=== PATIENT | female | born 1945 | race Caucasian/White ===

== ENCOUNTER → 2016-10-15 | Outpatient (CLI) | payer MEDICARE, OTHER ==
[2016-10-15 14:27] LABS: MEAN CORPUSCULAR HEMOGLOBIN 29.6 pg (27.0-33.0); MEAN CORPUSCULAR HGB CONC 32.2 g/dl (32.0-36.5); MEAN CORPUSCULAR VOLUME 91.9 fl (80.0-96.0); WHITE BLOOD COUNT 5.6 K/mm3 (4.0-10.0)
[2016-10-15 14:33] LABS: ALBUMIN 3.4 GM/DL (3.2-5.2); ALBUMIN/GLOBULIN RATIO 1.06 (1.00-1.93); ALKALINE PHOSPHATASE 77 U/L (45-117); ALT/SGPT 22 U/L (12-78); ANION GAP 9 MEQ/L (8-16); AST/SGOT 16 U/L (15-37); BILIRUBIN,TOTAL 0.4 MG/DL (0.2-1.0); BLOOD UREA NITROGEN 18 MG/DL (7-18); CALCIUM LEVEL 8.9 MG/DL (8.8-10.2); CARBON DIOXIDE LEVEL 27 MEQ/L (21-32); CHLORIDE LEVEL 108 MEQ/L (98-107); CREATININE FOR GFR 0.92 MG/DL (0.55-1.02); FREE T4 1.45 NG/DL (0.76-1.46); GLOMERULAR FILTRATION RATE > 60.0 (>39); GLUCOSE, FASTING 93 MG/DL (83-110); POTASSIUM SERUM 4.7 MEQ/L (3.5-5.1); SODIUM LEVEL 144 MEQ/L (136-145); TOTAL PROTEIN 6.6 GM/DL (6.4-8.2)
[2016-10-15 14:34] LABS: VITAMIN B12 LEVEL 244 PG/ML (247-911)
== END ==
LOC: M SMT 09:36
PROVIDERS: ATTEND Family Medicine
DX: E53.8 Deficiency of other specified B group vitamins (principal); E03.9 Hypothyroidism, unspecified; I25.9 Chronic ischemic heart disease, unspecified

== ENCOUNTER → 2017-09-10 | Outpatient (CLI) | payer MEDICARE, OTHER ==
[2017-09-10 12:12] LABS: HEMATOCRIT 38.7 % (36.0-47.0); HEMOGLOBIN 12.4 g/dl (12.0-16.0); IMMATURE GRANULOCYTE % 0.4 % (0-3.0); LYMPH # 1.8 10^3/uL (1.5-4.5); LYMPH % 36.7 % (24.0-44.0); MEAN CORPUSCULAR HEMOGLOBIN 29.3 pg (27.0-33.0); MEAN CORPUSCULAR VOLUME 91.5 fl (80.0-96.0); MONO # 0.2 10^3/uL (0.0-0.8); MONO % 4.8 % (0.0-5.0); NEUTROPHILS # 2.9 10^3/uL (1.8-7.7); NEUTROPHILS % 58.1 % (36.0-66.0); PLATELET COUNT, AUTOMATED 279 10^3/uL (150-450); RED BLOOD COUNT 4.23 10^6/uL (4.00-5.40); RED CELL DISTRIBUTION WIDTH 11.8 % (11.5-14.5)
[2017-09-10 12:34] LABS: VITAMIN B12 LEVEL 256 PG/ML (247-911)
[2017-09-10 12:57] LABS: ALBUMIN 3.5 GM/DL (3.2-5.2); ALBUMIN/GLOBULIN RATIO 1.06 (1.00-1.93); ALKALINE PHOSPHATASE 90 U/L (45-117); ALT/SGPT 15 U/L (12-78); ANION GAP 11 MEQ/L (8-16); AST/SGOT 13 U/L (7-37); BILIRUBIN,TOTAL 0.5 MG/DL (0.2-1.0); BLOOD UREA NITROGEN 15 MG/DL (7-18); CALCIUM LEVEL 8.9 MG/DL (8.8-10.2); CARBON DIOXIDE LEVEL 25 MEQ/L (21-32); CHLORIDE LEVEL 106 MEQ/L (98-107); CHOLESTEROL LEVEL 201 MG/DL (<200); CREATININE FOR GFR 0.96 MG/DL (0.55-1.30); FREE T4 1.41 NG/DL (0.76-1.46); GLOMERULAR FILTRATION RATE > 60.0 (>39); GLUCOSE, FASTING 83 MG/DL (70-100); HDL CHOLESTEROL 75 MG/DL (>40); NON-HDL-C 126 MG/DL; POTASSIUM SERUM 4.3 MEQ/L (3.5-5.1); SODIUM LEVEL 142 MEQ/L (136-145); THYROID STIMULATING HORMONE 0.127 uIU/ML (0.358-3.740); TOTAL PROTEIN 6.8 GM/DL (6.4-8.2); TRIGLYCERIDES LEVEL 90 MG/DL (<150)
[2017-09-10 13:22] LABS: FREE T3 2.8 PG/ML (2.2-4.0)
== END ==
LOC: M WUC 09:04
DX: E03.9 Hypothyroidism, unspecified (principal)
CPT/HCPCS: 84443

== ENCOUNTER → 2018-01-16 | Outpatient (CLI) | payer MEDICARE, OTHER ==
[2018-01-16 13:28] LABS: BASO % 0.1 % (0.0-1.0); HEMOGLOBIN 11.4 g/dl (12.0-15.5); IMMATURE GRANULOCYTE % 1.2 % (0-3.0); LYMPH # 1.7 10^3/uL (1.5-4.5); LYMPH % 24.6 % (24.0-44.0); MEAN CORPUSCULAR HEMOGLOBIN 29.4 pg (27.0-33.0); MEAN CORPUSCULAR HGB CONC 31.7 g/dl (32.0-36.5); MEAN CORPUSCULAR VOLUME 92.8 fl (80.0-96.0); MONO # 0.4 10^3/uL (0.0-0.8); NEUTROPHILS # 4.7 10^3/uL (1.8-7.7); NEUTROPHILS % 68.1 % (36.0-66.0); PLATELET COUNT, AUTOMATED 379 10^3/uL (150-450); RED BLOOD COUNT 3.88 10^6/uL (4.00-5.40); RED CELL DISTRIBUTION WIDTH 12.3 % (11.5-14.5); WHITE BLOOD COUNT 6.9 10^3/uL (4.0-10.0)
[2018-01-16 13:55] LABS: VITAMIN B12 LEVEL 1647 PG/ML (247-911)
[2018-01-16 13:57] LABS: ALBUMIN 2.8 GM/DL (3.2-5.2); ALKALINE PHOSPHATASE 86 U/L (45-117); ALT/SGPT 25 U/L (12-78); ANION GAP 12 MEQ/L (8-16); AST/SGOT 15 U/L (7-37); BILIRUBIN,TOTAL 0.3 MG/DL (0.2-1.0); BLOOD UREA NITROGEN 11 MG/DL (7-18); CALCIUM LEVEL 8.8 MG/DL (8.8-10.2); CARBON DIOXIDE LEVEL 25 MEQ/L (21-32); CHLORIDE LEVEL 108 MEQ/L (98-107); CREATININE FOR GFR 1.01 MG/DL (0.55-1.30); FREE T3 1.8 PG/ML (2.2-4.0); FREE T4 1.68 NG/DL (0.76-1.46); GLUCOSE, FASTING 96 MG/DL (70-100); POTASSIUM SERUM 3.9 MEQ/L (3.5-5.1); SODIUM LEVEL 145 MEQ/L (136-145); THYROID STIMULATING HORMONE 0.151 uIU/ML (0.358-3.740); TOTAL PROTEIN 6.8 GM/DL (6.4-8.2)
[2018-01-16 15:21] LABS: ERYTHROCYTE SEDIMENTATION RATE 85 mm/hr (0-30)
== END ==
LOC: M WUC 09:30
DX: E03.9 Hypothyroidism, unspecified (principal); E53.8 Deficiency of other specified B group vitamins; R53.81 Other malaise
CPT/HCPCS: 84443

== ENCOUNTER → 2018-02-06 | Outpatient (CLI) | payer MEDICARE, OTHER ==
[2018-02-06 15:49] LABS: ERYTHROCYTE SEDIMENTATION RATE 16 mm/hr (0-30)
== END ==
LOC: M WUC 13:06
DX: M35.3 Polymyalgia rheumatica (principal)
CPT/HCPCS: 36415

== ENCOUNTER → 2018-04-07 | Outpatient (CLI) | payer MEDICARE, OTHER ==
[2018-04-07 14:07] LABS: THYROID STIMULATING HORMONE 0.017 uIU/ML (0.358-3.740)
[2018-04-07 14:07] LABS: FREE T3 4.8 PG/ML (2.2-4.0); FREE T4 2.26 NG/DL (0.76-1.46)
[2018-04-07 14:21] LABS: ERYTHROCYTE SEDIMENTATION RATE 29 mm/hr (0-30)
== END ==
LOC: M WUC 09:57
DX: E03.9 Hypothyroidism, unspecified (principal); M35.3 Polymyalgia rheumatica
CPT/HCPCS: 84443

== ENCOUNTER → 2018-04-28 | Outpatient (CLI) | payer MEDICARE, OTHER ==
[2018-04-28 17:21] LABS: THYROID STIMULATING HORMONE 0.021 uIU/ML (0.358-3.740)
[2018-04-28 17:21] LABS: FREE T4 1.42 NG/DL (0.76-1.46)
[2018-04-28 18:22] LABS: ERYTHROCYTE SEDIMENTATION RATE 14 mm/hr (0-30)
== END ==
LOC: M WUC 13:10
DX: M35.3 Polymyalgia rheumatica (principal); E03.9 Hypothyroidism, unspecified
CPT/HCPCS: 84443

== ENCOUNTER → 2018-05-15 | Outpatient (CLI) | payer MEDICARE, OTHER ==
[2018-05-15 17:40] LABS: BLOOD UREA NITROGEN 16 MG/DL (7-18)
[2018-05-15 17:40] LABS: CREATININE FOR GFR 0.96 MG/DL (0.55-1.30); GLOMERULAR FILTRATION RATE > 60.0 (>39)
== END ==
LOC: M WUC 10:58
DX: N18.9 Chronic kidney disease, unspecified (principal)
CPT/HCPCS: 82565

== ENCOUNTER → 2018-07-30 | Outpatient (CLI) | payer MEDICARE, OTHER ==
[~2018-07-30] MED LIST: ALBU83IN INH; ARIP1TAB6 PO; CLAR10CA3 PO; CLON0.5T8 PO; DESV100T3 PO; LEVO50TA5 PO; SYMB80INH INH; VENTAER INH
[2018-07-30 17:29] LABS: FREE T4 1.22 NG/DL (0.76-1.46); THYROID STIMULATING HORMONE 0.081 uIU/ML (0.358-3.740)
== END ==
LOC: M WUC 10:19
PROVIDERS: ATTEND Family Medicine
DX: E03.9 Hypothyroidism, unspecified (principal); M35.3 Polymyalgia rheumatica

== ENCOUNTER → 2018-10-20 | Outpatient (CLI) | payer MEDICARE, OTHER ==
[2018-10-20 18:59] LABS: BASO % 0.2 % (0.0-1.0); EOS % 0.1 % (0.0-3.0); HEMOGLOBIN 12.3 g/dl (12.0-15.5); LYMPH # 1.9 10^3/uL (1.5-4.5); LYMPH % 22.1 % (24.0-44.0); MEAN CORPUSCULAR HEMOGLOBIN 31.1 pg (27.0-33.0); MEAN CORPUSCULAR HGB CONC 31.5 g/dl (32.0-36.5); MEAN CORPUSCULAR VOLUME 98.5 fl (80.0-96.0); MONO # 0.5 10^3/uL (0.0-0.8); MONO % 5.7 % (0.0-5.0); NEUTROPHILS # 6.2 10^3/uL (1.8-7.7); NEUTROPHILS % 71.2 % (36.0-66.0); PLATELET COUNT, AUTOMATED 262 10^3/uL (150-450); RED BLOOD COUNT 3.96 10^6/uL (4.00-5.40); WHITE BLOOD COUNT 8.7 10^3/uL (4.0-10.0)
[2018-10-20 19:19] LABS: ALBUMIN 3.4 GM/DL (3.2-5.2); BILIRUBIN,TOTAL 0.3 MG/DL (0.2-1.0); CALCIUM LEVEL 8.7 MG/DL (8.8-10.2); CREATININE FOR GFR 1.01 MG/DL (0.55-1.30); FREE T4 1.36 NG/DL (0.76-1.46); GLOMERULAR FILTRATION RATE 56.9 (>39); POTASSIUM SERUM 4.1 MEQ/L (3.5-5.1); THYROID STIMULATING HORMONE 0.173 uIU/ML (0.358-3.740); TOTAL PROTEIN 6.5 GM/DL (6.4-8.2)
[2018-10-20 19:32] LABS: ERYTHROCYTE SEDIMENTATION RATE 10 mm/hr (0-30)
== END ==
LOC: M WUC 11:04
PROVIDERS: ATTEND Family Medicine
DX: E03.9 Hypothyroidism, unspecified (principal); E53.8 Deficiency of other specified B group vitamins; I25.9 Chronic ischemic heart disease, unspecified; M35.3 Polymyalgia rheumatica

== ENCOUNTER → 2018-12-24 | Outpatient (CLI) | payer MEDICARE, OTHER ==
[2018-12-24 17:26] LABS: FREE T3 2.4 PG/ML (2.2-4.0); FREE T4 1.07 NG/DL (0.76-1.46); THYROID STIMULATING HORMONE 0.37 uIU/ML (0.358-3.740)
== END ==
LOC: M WUC 11:02
PROVIDERS: ATTEND Family Medicine
DX: E03.9 Hypothyroidism, unspecified (principal); M35.3 Polymyalgia rheumatica

== ENCOUNTER → 2019-04-17 | Outpatient (CLI) | payer MEDICARE, OTHER ==
[2019-04-17 16:48] LABS: HEMOGLOBIN 11.9 g/dl (12.0-15.5); MEAN CORPUSCULAR HEMOGLOBIN 30.3 pg (27.0-33.0); MEAN CORPUSCULAR HGB CONC 32.2 g/dl (32.0-36.5); MEAN CORPUSCULAR VOLUME 94.1 fl (80.0-96.0); PLATELET COUNT, AUTOMATED 256 10^3/uL (150-450); RED BLOOD COUNT 3.93 10^6/uL (4.00-5.40); WHITE BLOOD COUNT 5.8 10^3/uL (4.0-10.0)
[2019-04-17 16:59] LABS: ALBUMIN 3.7 GM/DL (3.2-5.2); BILIRUBIN,TOTAL 0.5 MG/DL (0.2-1.0); CALCIUM LEVEL 9.4 MG/DL (8.8-10.2); CREATININE FOR GFR 1.05 MG/DL (0.55-1.30); FREE T3 3.1 PG/ML (2.2-4.0); FREE T4 1.2 NG/DL (0.76-1.46); GLOMERULAR FILTRATION RATE 54.2 (>39); THYROID STIMULATING HORMONE 0.233 uIU/ML (0.358-3.740); TOTAL PROTEIN 6.9 GM/DL (6.4-8.2)
[2019-04-17 17:12] LABS: ERYTHROCYTE SEDIMENTATION RATE 20 mm/hr (0-30)
== END ==
LOC: M WUC 13:24
PROVIDERS: ATTEND Family Medicine
DX: E03.9 Hypothyroidism, unspecified (principal); E53.8 Deficiency of other specified B group vitamins; M35.3 Polymyalgia rheumatica

== ENCOUNTER → 2019-05-12 | Outpatient (CLI) | payer MEDICARE, OTHER ==
[2019-05-12 13:11] LABS: BASO % 0.2 % (0.0-1.0); HEMATOCRIT 37.2 % (36.0-47.0); HEMOGLOBIN 11.8 g/dl (12.0-15.5); LYMPH # 1.7 10^3/uL (1.5-5.0); LYMPH % 26.7 % (24.0-44.0); MEAN CORPUSCULAR HEMOGLOBIN 30.3 pg (27.0-33.0); MEAN CORPUSCULAR HGB CONC 31.7 g/dl (32.0-36.5); MEAN CORPUSCULAR VOLUME 95.6 fl (80.0-96.0); MONO # 0.4 10^3/uL (0.0-0.8); MONO % 6.5 % (0.0-5.0); NEUTROPHILS # 4.2 10^3/uL (1.5-8.5); PLATELET COUNT, AUTOMATED 242 10^3/uL (150-450); RED BLOOD COUNT 3.89 10^6/uL (4.00-5.40); WHITE BLOOD COUNT 6.3 10^3/uL (4.0-10.0)
[2019-05-12 13:35] LABS: ALBUMIN 3.5 GM/DL (3.2-5.2); ALT/SGPT 18 U/L (12-78); BILIRUBIN,TOTAL 0.5 MG/DL (0.2-1.0); BLOOD UREA NITROGEN 18 MG/DL (7-18); CALCIUM LEVEL 9.3 MG/DL (8.8-10.2); CARBON DIOXIDE LEVEL 26 MEQ/L (21-32); CHLORIDE LEVEL 108 MEQ/L (98-107); CREATININE FOR GFR 1.05 MG/DL (0.55-1.30); FREE T4 1.25 NG/DL (0.76-1.46); FREE THYROXINE INDEX 3.6 % (1.3-4.8); GLOMERULAR FILTRATION RATE 54.2 (>39); GLUCOSE, FASTING 89 MG/DL (70-100); POTASSIUM SERUM 4.1 MEQ/L (3.5-5.1); RHEUMATOID FACTOR QUANT < 10.0 IU/ML (<15.0); SODIUM LEVEL 142 MEQ/L (136-145); T UPTAKE 32 % (30-39); THYROID STIMULATING HORMONE 0.108 uIU/ML (0.358-3.740); THYROXINE (T4) 11.1 UG/DL (4.5-12.0); TOTAL PROTEIN 6.7 GM/DL (6.4-8.2)
[2019-05-12 13:38] LABS: VITAMIN B12 LEVEL 186 PG/ML
[2019-05-12 13:39] LABS: FOLATE 12.7 NG/ML
[2019-05-12 13:48] LABS: ERYTHROCYTE SEDIMENTATION RATE 16 mm/hr (0-30)
== END ==
LOC: M WUC 11:38
PROVIDERS: ATTEND Psychiatry & Neurology Neurology
DX: E07.9 Disorder of thyroid, unspecified (principal)

== ENCOUNTER → 2019-07-14 | Outpatient (CLI) | payer MEDICARE, OTHER ==
[~2019-07-14] MED LIST changes: +CLON0.5T2 PO; -CLON0.5T8 PO
[2019-07-14 16:26] LABS: HEMATOCRIT 36.8 % (36.0-47.0); HEMOGLOBIN 11.8 g/dl (12.0-15.5); MEAN CORPUSCULAR HEMOGLOBIN 30.2 pg (27.0-33.0); MEAN CORPUSCULAR HGB CONC 32.1 g/dl (32.0-36.5); MEAN CORPUSCULAR VOLUME 94.1 fl (80.0-96.0); PLATELET COUNT, AUTOMATED 271 10^3/uL (150-450); RED BLOOD COUNT 3.91 10^6/uL (4.00-5.40); WHITE BLOOD COUNT 6.5 10^3/uL (4.0-10.0)
[2019-07-14 16:48] LABS: ERYTHROCYTE SEDIMENTATION RATE 15 mm/hr (0-30)
[2019-07-14 16:59] LABS: ALBUMIN 3.5 GM/DL (3.2-5.2); ALT/SGPT 16 U/L (12-78); BILIRUBIN,TOTAL 0.4 MG/DL (0.2-1.0); BLOOD UREA NITROGEN 11 MG/DL (7-18); CALCIUM LEVEL 9.3 MG/DL (8.8-10.2); CARBON DIOXIDE LEVEL 25 MEQ/L (21-32); CHLORIDE LEVEL 109 MEQ/L (98-107); FREE T3 2.8 PG/ML (2.2-4.0); FREE T4 1.34 NG/DL (0.76-1.46); GLOMERULAR FILTRATION RATE > 60.0 (>39); GLUCOSE, FASTING 86 MG/DL (70-100); POTASSIUM SERUM 4.4 MEQ/L (3.5-5.1); SODIUM LEVEL 141 MEQ/L (136-145); THYROID STIMULATING HORMONE 0.033 uIU/ML (0.358-3.740); TOTAL PROTEIN 6.6 GM/DL (6.4-8.2)
[2019-07-14 17:01] LABS: VITAMIN B12 LEVEL 458 PG/ML (247-911)
== END ==
LOC: M WUC 14:19
PROVIDERS: ATTEND Family Medicine
DX: E03.9 Hypothyroidism, unspecified (principal); E53.8 Deficiency of other specified B group vitamins; I25.9 Chronic ischemic heart disease, unspecified

== ENCOUNTER → 2019-09-10 | Outpatient (CLI) | payer MEDICARE, OTHER ==
[2019-09-10 13:50] LABS: FOLATE 12.5 NG/ML
== END ==
LOC: M WUC 10:55
PROVIDERS: ATTEND Psychiatry & Neurology Neurology
DX: E53.8 Deficiency of other specified B group vitamins (principal)

== ENCOUNTER → 2019-11-16 | Outpatient (CLI) | payer MEDICARE, OTHER ==
[2019-11-16 16:58] LABS: FREE T3 2.9 PG/ML (2.2-4.0); FREE T4 1.51 NG/DL (0.76-1.46); THYROID STIMULATING HORMONE 0.009 uIU/ML (0.358-3.740)
[2019-11-16 16:59] LABS: VITAMIN B12 LEVEL > 2000 PG/ML (247-911)
== END ==
LOC: M WUC 11:52
PROVIDERS: ATTEND Family Medicine
DX: E03.9 Hypothyroidism, unspecified (principal); E53.8 Deficiency of other specified B group vitamins; M35.3 Polymyalgia rheumatica

== ENCOUNTER → 2019-11-17 | Outpatient (CLI) | payer MEDICARE, OTHER ==
--- NOTE | 2019-11-20 20:04 | HOLTMON ---
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 29 hours and 53 minutes were usable for analysis. Baseline mechanism was SR with normal AV conduction and narrow QRS complex. Minimum HR was 64 bpm, average HR 82 bpm and maximum HR 145 bpm. There were no PVC's and 14 isolated PAC's. No pauses and no atrial fibrillation. No reported specific symptoms, patient reported in a diary that she never feels well. Overall unremarkable Holter monitor. Electronically Signed on 11-20-2019 20:04:09 EDT by David Tracy
== END ==
LOC: M EKG 10:54
PROVIDERS: ATTEND Family Medicine
DX: R42 Dizziness and giddiness (principal)

== ENCOUNTER 2020-03-25 11:04 | Emergency (ER) | payer MEDICARE, OTHER ==
[~2020-03-25] VITALS: Ht 157.5 cm; Wt 61.6 kg
[2020-03-25] MEDS ORDERED: LEVO50TA5 PO (11:34)
[2020-03-25] MEDS ORDERED: LIOT5TAB6 PO (11:34)
[2020-03-25] MEDS ORDERED: B-12100010 PO (11:34)
[2020-03-25] MEDS ORDERED: FLUD0.1T PO (11:34)
[2020-03-25] MEDS ORDERED: VITA100T14 PO (11:34)
[2020-03-25 11:58] LABS: ABG BASE EXCESS -0.7 (-2.0-2.0); ABG HCO3 20.3 MEQ/L (22.0-26.0); ABG O2 SATURATION 99.3 % (95.0-99.0); ABG PARTIAL PRESSURE CO2 24.1 mmHg (35.0-45.0); ABG PARTIAL PRESSURE O2 152.3 mmHg (75.0-100.0); ABG STANDARD HCO3 23.9 MEQ/L (22.0-26.0); ABG pH (ARTERIAL) 7.543 UNITS (7.350-7.450)
[2020-03-25 12:04] LABS: EOS # 0.1 10^3/uL (0.0-0.5); EOS % 1.2 % (0.0-3.0); HEMATOCRIT 34.9 % (36.0-47.0); HEMOGLOBIN 11.6 g/dl (12.0-15.5); LYMPH # 1.7 10^3/uL (1.5-5.0); LYMPH % 23.6 % (24.0-44.0); MEAN CORPUSCULAR HEMOGLOBIN 30.7 pg (27.0-33.0); MEAN CORPUSCULAR HGB CONC 33.2 g/dl (32.0-36.5); MEAN CORPUSCULAR VOLUME 92.3 fl (80.0-96.0); MONO # 0.4 10^3/uL (0.0-0.8); MONO % 5.1 % (0.0-5.0); NEUTROPHILS # 5.1 10^3/uL (1.5-8.5); NEUTROPHILS % 69.8 % (36.0-66.0); PLATELET COUNT, AUTOMATED 228 10^3/uL (150-450); RED BLOOD COUNT 3.78 10^6/uL (4.00-5.40); WHITE BLOOD COUNT 7.3 10^3/uL (4.0-10.0)
[2020-03-25 12:14] LABS: INR 0.98; PROTHROMBIN TIME 13.2 SECONDS (12.5-14.3)
--- NOTE | 2020-03-25 12:29 | REPVR ---
PROCEDURE INFORMATION: Exam: XR Chest, 1 View Exam date and time: 03/25/2020 11:59 AM Age: 75 years old Clinical indication: Shortness of breath; Additional info: Dyspnea/cough TECHNIQUE: Imaging protocol: XR of the chest Views: 1 view. COMPARISON: No relevant prior studies available. FINDINGS: Tubes, catheters and devices: ECG leads/contacts overlie and partially obscure the anatomy. Lungs: Mild bilateral pulmonary hyperinflation. No pulmonary consolidation or edema. Multiple calcified pulmonary nodules consistent with benign remote granulomas. Pleural space: No evident pleural effusion. No evident pneumothorax. Heart/Mediastinum: Heart size is within normal limits. Vasculature: Tortuous thoracic aorta. Bones/joints: The bones appear diffusely demineralized. Degenerative spine disease. IMPRESSION: Bilateral pulmonary hyperinflation. No pulmonary consolidation. Electronically signed by: Agus Salazar On 03/25/2020 12:29:04 PM
[2020-03-25 12:44] LABS: ALBUMIN 3.4 GM/DL (3.2-5.2); BILIRUBIN,DIRECT 0.1 MG/DL (0.0-0.2); BILIRUBIN,TOTAL 0.6 MG/DL (0.2-1.0); THYROID STIMULATING HORMONE 0.056 uIU/ML (0.358-3.740); TOTAL PROTEIN 6.6 GM/DL (6.4-8.2)
[2020-03-25] MEDS ORDERED: ISOVUE-370 76% 100ML VIAL As Ordered ONE (13:19)
--- NOTE | 2020-03-25 14:36 | REPVR ---
PROCEDURE INFORMATION: Exam: CT Angiography Chest With Contrast Exam date and time: 03/25/2020 1:40 PM Age: 75 years old Clinical indication: Shortness of breath; Additional info: SOB R/O pe TECHNIQUE: Imaging protocol: Computed tomographic angiography of the chest with intravenous contrast. 3D rendering (Not supervised by radiologist): MIP and/or 3D reconstructed images were created by the technologist. Radiation optimization: All CT scans at this facility use at least one of these dose optimization techniques: automated exposure control; mA and/or kV adjustment per patient size (includes targeted exams where dose is matched to clinical indication); or iterative reconstruction. Contrast material: ISOVUE 370; Contrast volume: 75 ml; Contrast route: INTRAVENOUS (IV); COMPARISON: CR PORTABLE CHEST X-RAY 03/25/2020 11:59 AM FINDINGS: Pulmonary arteries: Normal. No pulmonary emboli. Aorta: Unremarkable. No aortic aneurysm. No aortic dissection. Lungs: Granuloma in the left lower lobe. 2 mm subsolid nodule right upper lobe (series 402, image 17. 2.6 mm. subsolid nodule right upper lobe (series 402, image 19) 2.6 mm subsolid nodule right upper lobe (series 402, image 34). Scattered bulla. Pleural space: Unremarkable. No pneumothorax. No pleural effusion. Heart: Unremarkable. No cardiomegaly. No pericardial effusion. Lymph nodes: Unremarkable. No enlarged lymph nodes. Bones/joints: Unremarkable. No acute fracture. Soft tissues: Unremarkable. IMPRESSION: 1. No acute pulmonary embolism. 2. Scattered subsolid pulmonary nodules.Recommend CT at 3-6 months. If stable, then consider CT at 2 years and 4 years. (sebastian Concepcion al., Fleischner Society, 2017) Electronically signed by: Melinda Graf On 03/25/2020 14:36:40 PM
[2020-03-25] MEDS ORDERED: methylPREDNISolone 125MG 2ML VIAL IV ONE (16:00)
[2020-03-25] MEDS ORDERED: PRED10TA2 PO (16:02)
[2020-03-25 16:49] VITALS: BP 100/61
--- NOTE | 2020-03-26 07:44 | ED PDOC ---
Post-Departure Follow-Up radiology rpeort faxed to Yi Vee MD Mar 26, 2020 07:44
--- NOTE | 2020-03-26 11:58 | ECGEPIP ---
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
== END 2020-03-25 16:52 | disposition home or self-care (01) ==
LOC: M ED 11:04
DX: J45.901 Unspecified asthma with (acute) exacerbation (principal); R91.1 Solitary pulmonary nodule; M35.3 Polymyalgia rheumatica; N18.9 Chronic kidney disease, unspecified; E03.9 Hypothyroidism, unspecified; E78.5 Hyperlipidemia, unspecified; I51.9 Heart disease, unspecified; Z91.040 Latex allergy status
CPT/HCPCS: 36600; 71045; 71275; 80047; 80076; 82803; 83605; 83880; 84443; 84484; 85025; 85610; 87040; 93005; 93041; 96374; 99285; J2930; Q9967

== ENCOUNTER → 2020-05-09 | Outpatient (CLI) | payer MEDICARE, OTHER ==
[~2020-05-09] MED LIST changes: +B-12100010 PO; +FLUD0.1T PO; +LIOT5TAB6 PO; +PRED10TA2 PO; +VITA100T14 PO
--- NOTE | 2020-05-09 16:30 | REP ---
INDICATION: MODERATE PERSISTENT ASTHMA, UNCOMPLICATED. COMPARISON: Comparison chest x-ray March 25, 2020. TECHNIQUE: Two views.. FINDINGS: The lungs are somewhat hyperinflated but free of infiltrate. Pleural angles are sharp. Heart size is normal. The aorta is somewhat tortuous. Pulmonary vasculature is not increased. There is diffuse osteopenia. IMPRESSION: Hyperinflation. No acute disease.. <Electronically signed by Orlando Oconnor > 05/09/20 [id number]
== END ==
LOC: M RAD 15:23
PROVIDERS: ATTEND Nurse Practitioner Family
DX: J45.40 Moderate persistent asthma, uncomplicated (principal)

== ENCOUNTER → 2020-05-26 | Outpatient (CLI) | payer MEDICARE, OTHER ==
[2020-05-26 13:46] LABS: FREE T4 0.87 NG/DL (0.76-1.46); THYROID STIMULATING HORMONE 6.08 uIU/ML (0.358-3.740)
== END ==
LOC: M PLALAB 11:09
PROVIDERS: ATTEND Internal Medicine Endocrinology, Diabetes & Metabolism
DX: E06.3 Autoimmune thyroiditis (principal)

== ENCOUNTER → 2020-07-18 | Outpatient (CLI) | payer MEDICARE, OTHER ==
[2020-07-18 15:14] LABS: FREE T4 0.99 NG/DL (0.76-1.46); THYROID STIMULATING HORMONE 6.74 uIU/ML (0.358-3.740)
== END ==
LOC: M PLALAB 10:38
PROVIDERS: ATTEND Nurse Practitioner Family
DX: E06.3 Autoimmune thyroiditis (principal)

== ENCOUNTER → 2020-09-14 | Outpatient (CLI) | payer MEDICARE, OTHER ==
[2020-09-14 14:40] LABS: FREE T4 0.87 NG/DL (0.76-1.46); THYROID STIMULATING HORMONE 2.2 uIU/ML (0.358-3.740)
== END ==
LOC: M PLALAB 11:04
PROVIDERS: ATTEND Nurse Practitioner Family
DX: E06.3 Autoimmune thyroiditis (principal)

== ENCOUNTER → 2020-11-29 | Outpatient (CLI) | payer MEDICARE, OTHER ==
[2020-11-29 13:43] LABS: BASO % 0.2 % (0.0-1.0); EOS # 0.3 10^3/uL (0.0-0.5); EOS % 5.1 % (0.0-3.0); HEMATOCRIT 38.6 % (36.0-47.0); HEMOGLOBIN 12.2 g/dl (12.0-15.5); LYMPH # 1.6 10^3/uL (1.5-5.0); MEAN CORPUSCULAR HEMOGLOBIN 29.9 pg (27.0-33.0); MEAN CORPUSCULAR HGB CONC 31.6 g/dl (32.0-36.5); MEAN CORPUSCULAR VOLUME 94.6 fl (80.0-96.0); MONO # 0.4 10^3/uL (0.0-0.8); MONO % 5.9 % (2.0-8.0); NEUTROPHILS # 4.2 10^3/uL (1.5-8.5); NEUTROPHILS % 64.2 % (36.0-66.0); PLATELET COUNT, AUTOMATED 256 10^3/uL (150-450); RED BLOOD COUNT 4.08 10^6/uL (4.00-5.40); WHITE BLOOD COUNT 6.5 10^3/uL (4.0-10.0)
[2020-11-29 14:36] LABS: ALBUMIN 3.7 GM/DL (3.2-5.2); BILIRUBIN,TOTAL 0.5 MG/DL (0.2-1.0); CALCIUM LEVEL 9.2 MG/DL (8.8-10.2); GLOMERULAR FILTRATION RATE 57.2 (>39); TOTAL PROTEIN 6.9 GM/DL (6.4-8.2)
== END ==
LOC: M PLALAB 09:28
PROVIDERS: ATTEND Internal Medicine Cardiovascular Disease
DX: I95.1 Orthostatic hypotension (principal); I50.32 Chronic diastolic (congestive) heart failure

== ENCOUNTER → 2020-11-29 | Outpatient (CLI) | payer MEDICARE, OTHER | LOC: M PLALAB 09:00 | PROVIDERS: ATTEND Physician Assistant | DX: J30.89 Other allergic rhinitis (principal); I95.1 Orthostatic hypotension; I50.32 Chronic diastolic (congestive) heart failure ==

== ENCOUNTER 2021-06-26 03:15 | Inpatient (IN) | payer MEDICARE, OTHER ==
[2021-06-26] VITALS (7 sets, daily range): BP systolic 95–123; BP diastolic 45–88
[~2021-06-26] VITALS: Ht 157.5 cm; Wt 68.2 kg
[2021-06-26] MEDS: SYMBICORT 160/4.5MCG INHALER 6GM INH SCH ×2 (02:45→08:00)
[2021-06-26] MEDS ORDERED: CLON0.5T2 PO (03:32)
[2021-06-26] MEDS ORDERED: FLUO40CA PO (03:32)
[2021-06-26] MEDS ORDERED: ONDANSETRON 4MG/2ML VIAL IV ONE (04:00)
[2021-06-26] MEDS: MORPHINE 4 MG/ML 1ML VIAL/SYRINGE (J2270) IV PRN ×2 (04:36→05:41)
[2021-06-26 04:53] LABS: BASO % 0.2 % (0.0-1.0); EOS # 0.1 10^3/uL (0.0-0.5); EOS % 0.8 % (0.0-3.0); HEMATOCRIT 35.1 % (36.0-47.0); HEMOGLOBIN 10.9 g/dl (12.0-15.5); LYMPH # 1.2 10^3/uL (1.5-5.0); LYMPH % 12.3 % (24.0-44.0); MEAN CORPUSCULAR HEMOGLOBIN 29.5 pg (27.0-33.0); MEAN CORPUSCULAR HGB CONC 31.1 g/dl (32.0-36.5); MEAN CORPUSCULAR VOLUME 95.1 fl (80.0-96.0); MONO # 0.2 10^3/uL (0.0-0.8); MONO % 2.2 % (2.0-8.0); NEUTROPHILS # 8.3 10^3/uL (1.5-8.5); NEUTROPHILS % 83.5 % (36.0-66.0); PLATELET COUNT, AUTOMATED 226 10^3/uL (150-450); RED BLOOD COUNT 3.69 10^6/uL (4.00-5.40); WHITE BLOOD COUNT 9.9 10^3/uL (4.0-10.0)
--- NOTE | 2021-06-26 05:02 | REPVR ---
PROCEDURE INFORMATION: Exam: XR Chest Exam date and time: 06/26/2021 4:19 AM Age: 76 years old Clinical indication: Other: Pre op; Additional info: Preop TECHNIQUE: Imaging protocol: XR of the chest. Views: 1 view. COMPARISON: 1. CR Chest, 2 view PA, Lat 2020-05-09 15:29 2. CR PORTABLE CHEST X-RAY 2020-03-25 11:[address] ANGIO CHEST 2020-03-25 13:36 FINDINGS: Lungs: Unremarkable. No consolidation. Pleural spaces: Unremarkable. No pleural effusion. No pneumothorax. Heart/Mediastinum: Unremarkable. No cardiomegaly. Bones/joints: Unremarkable. IMPRESSION: No acute findings. Electronically signed by: Kali Nance On 06/26/2021 05:01:36 AM
--- NOTE | 2021-06-26 05:02 | REPVR ---
PROCEDURE INFORMATION: Exam: XR Right Hip Exam date and time: 06/26/2021 4:00 AM Age: 76 years old Clinical indication: Other: Right hip pain; Additional info: Right hip pain, fall TECHNIQUE: Imaging protocol: XR Right hip. Views: 2 or 3 views hip with pelvis when performed. COMPARISON: No relevant prior studies available. FINDINGS: Bones/joints: Right femoral neck displaced fracture. Soft tissues: Unremarkable. IMPRESSION: No acute findings. Electronically signed by: Kali Nance On 06/26/2021 05:01:22 AM
[2021-06-26 05:05] LABS: INR 1.06; PROTHROMBIN TIME 14.2 SECONDS (12.7-14.5)
[2021-06-26 05:06] LABS: PARTIAL THROMBOPLASTIN TIME 31.4 SECONDS (25.9-37.0)
[2021-06-26 05:17] LABS: BLOOD UREA NITROGEN 18 MG/DL (7-18); CALCIUM LEVEL 9.2 MG/DL (8.8-10.2); CARBON DIOXIDE LEVEL 28 MEQ/L (21-32); CHLORIDE LEVEL 111 MEQ/L (98-107); CREATININE FOR GFR 0.86 MG/DL (0.55-1.30); GLOMERULAR FILTRATION RATE > 60.0 (>39); GLUCOSE, FASTING 89 MG/DL (70-100); POTASSIUM SERUM 4.2 MEQ/L (3.5-5.1); SODIUM LEVEL 144 MEQ/L (136-145)
[2021-06-26] MEDS ORDERED: MOM 30ML SUSPENSION UDC PO PRN (05:55)
[2021-06-26] MEDS ORDERED: ACETAMINOPHEN TAB 650MG DOSE (2X325MG) PO PRN ×2 (05:55→19:15)
[2021-06-26] MEDS ORDERED: MORPHINE 2 MG/ML 1ML VIAL (J2270) IV PRN ×2 (05:55→19:15)
--- NOTE | 2021-06-26 05:57 | HPEPDOC ---
[facility] Medical History & Physical Date of Admission Jun 26, 2021 Date of Service: Jun 26, 2021 History and Physical CHIEF COMPLAINT: Right hip pain HISTORY OF PRESENT ILLNESS: 76-year-old female history of hypertension presents after a mechanical fall at home earlier in the day. Patient tells me that she tripped while walking she did not feel lightheaded prior to the fall she did not hit her head nor did she lose any consciousness. She is having right hip pain rated 9 out of 10. Any movement worsens her pain. Holding still alleviates it. She is currently feeling anxious which she tells me is her baseline. Her daughter visited her towards the end of the encounter which improved the patient's anxiety. She tells me she lives at a senior housing and she pressed her call button and she believes somebody came to her aid after approximately 10 minutes but she is not sure. Currently she's feeling well apart from the anxiety in the right hip pain. She denies any other problems. She tells me the swelling in her legs is normal for her and is unchanged from prior. She denies any chest pain or shortness of breath. In the emergency department x-ray of the right hip reveals right femoral neck displaced fracture. Dr. Ho consulted Dr. Santiago from orthopedic surgery who advised patient can be admitted for pain control to the medical service and he will evaluate the patient in the morning to determine surgical course. PAST MEDICAL/SURGICAL HISTORY: anxiety and depression Asthma Hypotension Hypothyroidism Hysterectomy Ovarian cysts SOCIAL HISTORY: Denies alcohol use Denies tobacco use Denies illicit drug use Lives at senior housing FAMILY HISTORY: Reviewed and none contributory to this admission ALLERGIES: Please see below. REVIEW OF SYSTEMS: 10 point review of systems complete all negative otherwise stated in HPI HOME MEDICATIONS: Please see below. PHYSICAL EXAMINATION: Constitutional: Awake and alert, appears anxious. ENT: Sclera are clear. Mucosa is moist. Respiratory: Lungs CTA bilaterally. No respiratory distress. Cardiovascular: Regular rate and rhythm. Gastrointestinal: Abdomen is soft, non distended, non tender, BS present. Musculoskeletal: Dependent lower extremity edema. Hip is tender and was not examined exam will be deferred to orthopedic surgery later today. Neurologic: No focal neurological deficit. Mental Status: A&O x3, normal affect LABORATORY DATA: See below. IMAGING: See chart MICROBIOLOGY: Please see below. ASSESSMENT/PLAN 76-year-old female history of hypotension presents after a fall at home imaging shows a right femoral neck fracture patient admitted to medical service for pain control until she is evaluated by orthopedic surgery. # Right femoral neck displaced fracture: Management per orthopedic surgery. Dr. Santiago consulted will be seeing the patient in the morning to determine appropriate next steps. Pain control with Tylenol, IV morphine. # Hypotension: Managed by Dr. Hill cardiology. Continue fludrocortisone. May need extra steroid dose prior to surgery. # Asthma: Continue home inhalers # Depression and anxiety: Continue home medications # Hypothyroidism: resume Synthroid. # DVT prophylaxis: Heparin A Yousef Hospitalist Vital Signs Vital Signs Date Time Temp Pulse Resp B/P (MAP) Pulse Ox O2 Delivery O2 Flow Rate FiO2 06/26/21 05:41 20 06/26/21 03:28 98.2 75 149/70 (96) 97 Room Air Laboratory Data Labs 24H Laboratory Tests 2 06/26/21 04:00: Immature Granulocyte % (Auto) 1.0, Neutrophils (%) (Auto) 83.5H, Lymphocytes (%) (Auto) 12.3L, Monocytes (%) (Auto) 2.2, Eosinophils (%) (Auto) 0.8, Basophils (%) (Auto) 0.2, Neutrophils # (Auto) 8.3, Lymphocytes # (Auto) 1.2L, Monocytes # (Auto) 0.2, Eosinophils # (Auto) 0.1, Basophils # (Auto) 0.0, Nucleated Red Blood Cells % (auto) 0.0, Prothrombin Time 14.2H, Prothromb Time International Ratio 1.06, Activated Partial Thromboplast Time 31.4, Anion Gap 5L, Glomerular Filtration Rate > 60.0, Calcium Level 9.2 CBC/BMP Laboratory Tests 06/26/21 04:00 Home Medications Scheduled Budesonide/Formoterol (Symbicort 160-4.5 Mcg Inhaler) 6 Gm Hfa.aer.ad, 2 PUFF INH BID Clonazepam (Clonazepam) 0.5 Mg Tablet, 0.5 MG PO BID Cyanocobalamin (Vitamin B-12) (Vitamin B-12) 1,000 Mcg Capsule, 1,000 MCG PO DAILY Fludrocortisone Acetate (Fludrocortisone Acetate) 0.1 Mg Tablet, 0.1 MG PO DAILY Fluoxetine HCl (Fluoxetine HCl) 10 Mg Tablet, 10 MG PO DAILY Levothyroxine Sodium (Levothyroxine Sodium) 75 Mcg Tablet, 75 MCG PO DAILY Loratadine (Claritin) 10 Mg Cap, 10 MG PO DAILY Mirtazapine (Remeron) 15 Mg Tablet, 15 MG PO QHS Scheduled PRN Albuterol Sulf (Albuterol Sulfate) 2.5 Mg/3 Ml Nebu, INH BID PRN for SOB/WHEEZIN G Albuterol Sulfate (Ventolin Hfa) 108 Mcg/Act Aer, 2 PUFFS INH Q4HP PRN for SO B/WHEEZING Allergies Coded Allergies: No Known Drug Allergies (Verified Allergy, Unknown, 06/26/21) NADINE VAZQUEZ MD Jun 26, 2021 05:57
[2021-06-26] MEDS: LEVOTHYROXINE 75MCG TABLET (0.075MG) PO SCH (06:00)
[2021-06-26] MEDS ORDERED: HEPARIN SOD (PORCINE) 5000UNITS/ML 1ML VIAL/SYRINGE SC SCH (06:00)
[2021-06-26] MEDS ORDERED: SYMB16INH INH (06:09)
[2021-06-26] MEDS ORDERED: FLUO10TA30 PO (06:12)
[2021-06-26] MEDS ORDERED: MIRT-62 PO (06:12)
[2021-06-26] MEDS ORDERED: LEVO75TA4 PO (06:12)
[2021-06-26] MEDS ORDERED: HOME MED LIST COMPLETE! XX SCH (06:15)
[2021-06-26 06:34] LABS: RSV AMPLIFICATION NEGATIVE (NEGATIVE)
[2021-06-26] MEDS ORDERED: ALBUTEROL SULFATE 2.5 MG/0.5 ML INH NEB SOLN NEB PRN (07:35)
[2021-06-26] MEDS: FLUDROCORTISONE ACETATE 0.1 MG TAB PO SCH (09:00)
[2021-06-26] MEDS ORDERED: KETOROLAC 30 MG/ML 1ML VIAL IV ONE (13:15)
[2021-06-26] MEDS ORDERED: PERCOCET 5MG/325MG TAB PO PRN (13:30)
[2021-06-26] MEDS ORDERED: EPINEPHrine INJ 1 MG/ML 1ML AMP As Ordered ONE (15:09)
[2021-06-26] MEDS ORDERED: ceFAZolin 1GM VIAL (J0690 PER 500MG) As Ordered ONE (15:09)
[2021-06-26] MEDS ORDERED: LIDOCAINE 2% 100MG/5ML SDV (FOR ANES.) As Ordered ONE (16:00)
[2021-06-26] MEDS ORDERED: ONDANSETRON 4MG/2ML VIAL As Ordered ONE (16:00)
[2021-06-26] MEDS ORDERED: dexameTHASONE 4 MG/ML 1ML VIAL (J1100 PER 1MG) As Ordered ONE (16:00)
[2021-06-26] MEDS ORDERED: ROCURONIUM BROMIDE 50 MG/5 ML VIAL As Ordered ONE (16:00)
[2021-06-26] MEDS ORDERED: propofoL 200 MG/20 ML VIAL As Ordered ONE (16:00)
[2021-06-26] MEDS ORDERED: fentaNYL 250 MCG/5 ML INJECTION (J3010) As Ordered ONE (16:01)
[2021-06-26] MEDS ORDERED: MIDAZOLAM INJ 2MG/2ML VIAL (J2250 PER 1MG) As Ordered ONE (16:01)
--- NOTE | 2021-06-26 16:11 | CR ---
CONSULTATION DATE: 06/26/2021 CHIEF COMPLAINT: Right femoral neck fracture. HISTORY OF PRESENT ILLNESS: This 76-year-old female tripped, had a mechanical fall at home the middle of the night going to the washroom. No other injuries. She was admitted by the Hospitalist Service. No prior history of pain, no problems with the hip. She described pain only in the right hip. No pain down the leg. Normal position of foot. No other problems. She did not hit her head or lose consciousness. MEDICAL HISTORY: Includes anxiety, depression, asthma, hypotension, hypothyroidism, hysterectomy, ovarian cyst. SURGICAL HISTORY: As above. SOCIAL HISTORY: Denies alcohol, tobacco or drug use. Lives in senior housing. She is fairly independent. She does have three children that help her with groceries and other shopping. She uses a walker and cane, usually she uses a cane but if she is going longer distance then she uses a walker. ALLERGIES: NO KNOWN DRUG ALLERGIES. MEDICATIONS: 1. Symbicort. 2. Temazepam. 3. Vitamin B12. 4. Fludrocortisone. 5. Fluoxetine. 6. Levothyroxine. 7. Loratadine. PHYSICAL EXAMINATION: Well appearing 76-year-old female. She appears a little bit anxious but she is alert and oriented x3. She communicates appropriately. Bilateral lower extremities: Neurovascularly intact, no obvious bruising or swelling about the right hip, closed injury. Normal sensation and motor function to superficial and deep peroneal nerves as well as saphenous, sural and tibial. Able to dorsiflex and plantarflex, foot is warm and well perfused. Strong dorsalis pedis pulse. LABORATORY DATA: White blood cell count 9.9, hemoglobin 10.9. She is COVID negative. Coagulation: INR 1.06, aPTT 3154. IMAGING DATA: Radiographs reviewed of the hip and pelvis on r side shows Garden type III displaced femoral neck fracture. Joint space appears well preserved. ASSESSMENT AND PLAN: This 76-year-old female has displaced right femoral neck fracture. We discussed the pros, cons, risks and benefits of nonsurgical versus surgical management. Nonsurgical risks typically higher and include blood clot, infection, nonunion of the hip, pneumonia and other risks. Risk of surgery include but are not limited to infection, pain, stiffness, bleeding, damage to surrounding structures, neurovascular injury, fracture length, abductor weakness, or lurch, instability, disassociation of components, wear, fracture delayed union, nonunion, anesthetic risk, blood clots, , need for further surgery and other risks and she wishes ot proceed with right hip cemented hemiarthroplasty and signed the consent form for that as well as marked the right lower extremity. She also signed the consent form for possible need for blood products. I explained the risks and benefits of that including risks not limited to infection, allergic reaction, transmission of bacteria or viruses. For now she will remain NPO and plan for surgery. I booked the OR and will book this as an emergency add on case. The patient is to remain nonweightbearing bedrest only. The patient understands and is in agreement with the plan and had no further questions.
[2021-06-26] MEDS ORDERED: ceFAZolin 2 GM/D5W 50 ML IV BAG (J0690 PER 500MG) As Ordered ONE (16:30)
[2021-06-26] MEDS ORDERED: HYDROCORTISONE 100 MG/2 ML VIAL (J1720 PER 1) As Ordered ONE (16:33)
[2021-06-26] MEDS ORDERED: TRANEXAMIC ACID 100 MG/ML 10ML VIAL As Ordered ONE (16:42)
[2021-06-26] MEDS ORDERED: HYDROmorphone HCL 2 MG/ML 1ML VIAL As Ordered ONE (17:49)
[2021-06-26] MEDS ORDERED: ACETAMINOPHEN 1000MG 100ML IV BTL (OFIRMEV) (J0131 PER 10MG) As Ordered ONE (17:49)
[2021-06-26] MEDS ORDERED: SUGAMMADEX SODIUM 500 MG/5 ML VIAL (BRIDION) As Ordered ONE (17:49)
[2021-06-26] MEDS ORDERED: LACRILUBE (AKWA TEARS) OPHTH OINT 3.5 GM As Ordered ONE (18:06)
[2021-06-26] MEDS ORDERED: PHENYLephrine 500MCG 5ML (100MCG/ML) SYRINGE As Ordered ONE (18:07)
[2021-06-26] MEDS ORDERED: BUPIVACAINE HCL 0.25% 30ML VIAL As Ordered ONE (18:35)
--- NOTE | 2021-06-26 19:02 | ROOPDOC ---
[facility] Report Of Operation Report of Operation DATE OF PROCEDURE: 06/26/21 PREPROCEDURE DIAGNOSES: Right femoral neck fracture. POSTPROCEDURE DIAGNOSES: Same. PROCEDURE PERFORMED: Right hip cemented hemiarthroplasty. SURGEON: Dr. Judy Weems MD STATION REPAIRER: None, ANESTHESIA: General anesthesia Dr Laguna and local anesthetic. ESTIMATED BLOOD LOSS: Approximately 100 mL. COMPLICATIONS: None. REMARKS: None. FINDINGS: Right femoral neck fracture SPECIMENS REMOVED: Femoral head PROCEDURE NOTE: 76-year-old female sustained a ground-level fall and a displaced right femoral neck fracture. Pros and cons risks and benefits of surgical management versus nonoperative care were discussed. The patient patient wished to go ahead with right hip hemiarthroplasty. I saw the patient in preoperative holding had no further questions. The right lower extremity was marked. Patient is cleared to go ahead with the general anesthetic. DESCRIPTION OF PROCEDURE: Patient was brought to the operating room theater. They were administered a general anesthetic. They were placed right lateral de cubitus with the aid of the [place] hip positioner. All bony prominences were padded. Axillary roll was used. SCDs on the down leg. Hylton placed, removed at the end of the case. Urinalysis sent as suggested by nursing staff. Right lower extremity prepped and draped in the usual sterile fashion with chlorhexidine-based prep solution allowing over 3 minutes drying time prior to draping. 2 g Ancef was administered prior to the start of the case as well as 1 g IV tranexamic acid. Preoperative timeout performed to confirm the site patient and the surgery. Began by making a standard lateral incision at the proximal femur curving s lightly posteriorly at the proximal end of the incision. I carried dissection down through skin and subcutaneous tissue achieve meticulous hemostasis. I incised the tensor fascia maritza in line with skin incision. I sharply excised the anterior one third of the abductors from the greater trochanter. I then made a T-shaped capsulotomy and tagged each limb with #1 Vicryl suture. I made the femoral neck cut approximately 1 cm above the lesser trochanter. I then used the corkscrew device to remove the femoral head. Acetabulum is normal cartilage was normal. I then flexed the leg off the side of the table. I then reamed the femoral canal and prepared this using broach handles and canal finding device up to a size 5 broach. I then trialed with a size 43 mm head with -3 mm junctional taper. This appeared appropriate shuck test was normal leg lengths are equal. No impingement no obvious levering or dislocation in flexion internal rotation or extension and external rotation. Trial components removed. Femoral canal was prepped using pulse lavage as well as epinephrine soaked gauze. Size 4 cement restrictor was placed. Cement was mixed using third-generation cement mixing techniques. Anesthesia was made aware of cementing. Patient was stable throughout ce menting. Cementing was performed and pressurized. I then used the Synthes [place] femoral stem size 5 placed in the femoral canal with an appropriate version and cement was allowed to fully harden after 13 minutes. I then cleaned the trunnion. Sponge was placed in the acetabulum and excess cement removed and assured to not be present in the acetabulum using pulse lavage. I then placed the -3 mm taper spacer inside the 43 mm head attached this to the trunnion and tapped this into place to secure the Sanchez taper and then relocated the hip. Again trialing was performed and found to be stable no levering no impingement and normal shuck test with normal leg lengths. Subcutaneous tissue was thoroughly irrigated with normal saline. I then closed the capsule using #1 Vicryl sutures. Abductors were repaired using transosseous tunnels and #2 FiberWire suture with a Wilner-Flavio type stitch. I then repaired the tensor fascia maritza using a strata fix stitch. Subcutaneous tissue was closed with interrupted and running 2-0 Vicryl. I used 10 cc of 0.25% Marcaine in and around the incision site. Skin was then cleaned with wet and dry dressing followed by Prineo with Dermabond and allowed to fully dry. Patient woken up from general anesthetic taken out of the hip positioner transferred off the operating room table and taken to postanesthetic care unit in stable condition. All sponge needle instrument counts were correct no complications plan for the patient weightbearing as tolerated PT and OT to assess while in hospital okay to shower over top of the dressing postoperative day 3 should leave the dressing on until follow-up, follow-up in the office in 2 weeks time. VTE prophylaxis with Xarelto 10 mg p.o. once daily starting 24 hours after surgery and x-ray in postanesthetic care unit to check status of the components. Patient will be readmitted under the hospitalist service. JUDY WEEMS MD Jun 26, 2021 19:02
[2021-06-26] MEDS ORDERED: fentaNYL 100 MCG/2 ML INJECTION (J3010) As Ordered ONE (19:07)
[2021-06-26] MEDS ORDERED: LR 1,000 ML IV SCH (19:10)
[2021-06-26] MEDS ORDERED: METOCLOPRAMIDE INJ 10MG/2ML VIAL (J2765 PER 1) IV PRN (19:10)
[2021-06-26] MEDS ORDERED: oxyCODONE 5MG TAB PO PRN (19:10)
[2021-06-26] MEDS ORDERED: ONDANSETRON 4MG/2ML VIAL IV PRN ×2 (19:10→19:20)
[2021-06-26] MEDS: fentaNYL 100 MCG/2 ML INJECTION (J3010) IV PRN ×2 (19:11→19:21)
--- NOTE | 2021-06-26 19:36 | REP ---
INDICATION: s/p shaw Status post arthroplasty. COMPARISON: None. TECHNIQUE: Single portable AP view of the right hip FINDINGS: Status post right hip replacement with normal appearance and positioning to the orthopedic hardware. Overlying postsurgical changes with swelling and subcutaneous emphysema. IMPRESSION: Satisfactory right hip replacement radiograph. <Electronically signed by Dada Burgess > 06/26/211931
[2021-06-26] MEDS ORDERED: MIRTAZAPINE 15 MG TAB PO SCH (21:00)
[2021-06-26] MEDS ORDERED: HEPARIN SOD (PORCINE) 5000UNITS/ML 1ML VIAL/SYRINGE SQ SCH (21:00)
[2021-06-26] MEDS: LR 1,000 ML IV SCH (21:18)
[2021-06-27] VITALS: BP 102/46
[2021-06-27] MEDS: ceFAZolin SOD 2 GM in IV 1 EA IV SCH ×2 (00:13→09:07)
[2021-06-27 02:00] VITALS: BP 116/66
[2021-06-27] MEDS: LR 1,000 ML IV SCH (03:17)
[2021-06-27] MEDS: PERCOCET 5MG/325MG TAB PO PRN ×2 (05:06→17:31)
[2021-06-27] MEDS: LEVOTHYROXINE 75MCG TABLET (0.075MG) PO SCH (05:06)
[2021-06-27 06:00] VITALS: BP 122/88
[2021-06-27 06:09] LABS: BASO % 0.2 % (0.0-1.0); EOS # 0.1 10^3/uL (0.0-0.5); EOS % 1.6 % (0.0-3.0); HEMATOCRIT 29.7 % (36.0-47.0); HEMOGLOBIN 9.3 g/dl (12.0-15.5); LYMPH # 1.3 10^3/uL (1.5-5.0); LYMPH % 14.9 % (24.0-44.0); MEAN CORPUSCULAR HEMOGLOBIN 30.4 pg (27.0-33.0); MEAN CORPUSCULAR HGB CONC 31.3 g/dl (32.0-36.5); MEAN CORPUSCULAR VOLUME 97.1 fl (80.0-96.0); MONO # 0.4 10^3/uL (0.0-0.8); MONO % 4.1 % (2.0-8.0); NEUTROPHILS # 6.9 10^3/uL (1.5-8.5); NEUTROPHILS % 78.7 % (36.0-66.0); PLATELET COUNT, AUTOMATED 170 10^3/uL (150-450); RED BLOOD COUNT 3.06 10^6/uL (4.00-5.40); WHITE BLOOD COUNT 8.8 10^3/uL (4.0-10.0)
[2021-06-27 06:35] LABS: CALCIUM LEVEL 8.5 MG/DL (8.8-10.2); CREATININE FOR GFR 1.01 MG/DL (0.55-1.30); GLOMERULAR FILTRATION RATE 56.4 (>39); POTASSIUM SERUM 4.6 MEQ/L (3.5-5.1)
[2021-06-27] MEDS: SYMBICORT 160/4.5MCG INHALER 6GM INH SCH (08:46)
[2021-06-27] MEDS ORDERED: PREVNAR 13 VACCINE SYRINGE IM ONE (09:00)
[2021-06-27] MEDS ORDERED: CYANOCOBALAMIN 500 MCG TAB PO SCH (09:00)
[2021-06-27] MEDS ORDERED: LORATADINE 10 MG TAB PO SCH (09:00)
[2021-06-27] MEDS: FLUDROCORTISONE ACETATE 0.1 MG TAB PO SCH (09:06)
--- NOTE | 2021-06-27 09:08 | IPNPDOC ---
Subjective Date Seen The patient was seen on 06/27/21. Subjective Chief Complaint/HPI Postop day 1 right hip cemented hemiarthroplasty for femoral neck fracture. Patient had a mechanical ground-level fall yesterday. They were taken to the OR last night. They are doing well this morning. No concerns or complaints from the nursing staff. The patient has already been up to the washroom once this morning. Objective Physical Examination General Exam: Positive: Cooperative, No Acute Distress Psych Exam: Positive: Oriented x 3 Other physical findings The incision appears well opposed no drainage no redness or drainage no warmth. The Prineo dressing is in place. The foot is neurovascularly intact normal sensation and motor function able to dorsiflex plantarflex the foot normal sensation on the dorsum and plantar aspect of foot strong dorsalis pedis pulse foot is warm and well-perfused RAD Interpretation STUDY: Rad Actions: Report Reviewed RAD Interpretation: Other Result Comments: (hip xray appears normal implant well positioned) Assessment /Plan Assessment Patient is doing well postoperative day 1. Weightbearing as tolerated. Plan/VTE VTE Prophylaxis Ordered?: Yes Plan IVF: Discontinue Diet: Advance Activity: Encourage Ambulation Therapy: PT, OT VS, I&O, 24H, Fishbone Vital Signs/I&O Vital Signs Date Time Temp Pulse Resp B/P (MAP) Pulse Ox O2 Delivery O2 Flow Rate FiO2 06/27/21 06:00 99.2 68 16 122/88 (99) 95 Nasal Cannula 2.0 I&O- Last 24 Hours up to 6 AM 06/27/21 06:00 Intake Total 2120 ml Output Total 150 ml Balance 1970 ml Laboratory Data 24H LABS Laboratory Tests 2 06/27/21 05:45: Immature Granulocyte % (Auto) 0.5, Neutrophils (%) (Auto) 78.7H, Lymphocytes (%) (Auto) 14.9L, Monocytes (%) (Auto) 4.1, Eosinophils (%) (Auto) 1.6, Basophils (%) (Auto) 0.2, Neutrophils # (Auto) 6.9, Lymphocytes # (Auto) 1.3L, Monocytes # (Auto) 0.4, Eosinophils # (Auto) 0.1, Basophils # (Auto) 0.0, Nucleated Red Blood Cells % (auto) 0.0, Anion Gap 3L, Glomerular Filtration Rate 56.4, Calcium Level 8.5L CBC/BMP Laboratory Tests 06/27/21 05:45 Microbiology Microbiology 06/26/21 Urine Culture, Received Pending JUDY WEEMS MD Jun 27, 2021 09:08
[2021-06-27] MEDS ORDERED: ALBUTEROL 90 MCG/ACT 8GM HFA INHALER INH PRN (11:35)
[2021-06-27] MEDS ORDERED: FLUoxetine 10 MG CAP PO SCH (11:35)
[2021-06-27] MEDS ORDERED: clonazePAM 0.5 MG TAB PO SCH (11:35)
[2021-06-27] MEDS ORDERED: XARE10TA PO (11:43)
[2021-06-27] MEDS ORDERED: PERCOCET PO (11:43)
[2021-06-27 14:00] VITALS: BP 102/45
[2021-06-27] MEDS ORDERED: RIVAROXABAN 10 MG TAB (XARELTO) PO SCH (18:00)
--- NOTE | 2021-06-27 19:04 | DS.PDOC ---
Discharge Summary General Date of Admission Jun 26, 2021 at 05:52 Date of Discharge 06/27/2021 Attending Physician: NIEVES FOOTE MD Specialist/Consultants Involve: JUDY SANTIAGO MD Discharge Summary PROCEDURES PERFORMED DURING STAY: R hip cemented hemiarthroplasty on 06/26 ADMITTING DIAGNOSES: Displaced Fracture Of Right Femoral Neck. DISCHARGE DIAGNOSES: Displaced Fracture Of Right Femoral Neck. Anxiety and depression Asthma Chronic Hypotension Hypothyroidism Ovarian cysts COMPLICATIONS/CHIEF COMPLAINT: Displaced Fracture Of Right Femoral Neck. HISTORY OF PRESENT ILLNESS: 76-year-old W history of hypotension, anxiety and depression who presented to the ED after a mechanical fall at home earlier in the day. She reported that she tripped while walking and did not feel lightheaded prior to the fall, did not hit her head nor did she lose consciousness. She presented with right hip pain rated 9 out of 10. Any movement worsened her pain HOSPITAL COURSE: In the emergency department x-ray of the right hip reveals right femoral neck displaced fracture. Dr. Ho consulted Dr. Santiago from orthopedic surgery who recommended medical admission for pain control and orthopedics on consult for surgery evaluation. She ultimately had a R hip cemented hemiarthroplasty on 06/26 and is now being discharged to the ARU for PT/OT with PM&R. She had an uncomplicated course and was placed on Xarelto for DVT ppx per surgery recommendation. DISCHARGE MEDICATIONS: Please see below. ALLERGIES: Please see below. PHYSICAL EXAMINATION ON DISCHARGE: VITAL SIGNS: Please see below. Constitutional: Awake and alert, appears anxious. ENT: Sclera are clear. Mucosa is moist. Respiratory: Lungs CTA bilaterally. No respiratory distress. Cardiovascular: Regular rate and rhythm. Gastrointestinal: Abdomen is soft, non distended, non tender, BS present. Musculoskeletal: Incision is well dressed and dressing has no sign of drainage, site has no sign of redness or warmth. Foot is WWP with FROM and 2+ DP pulses. Neurologic: No focal neurological deficit. Mental Status: A&O x3, normal affect LABORATORY DATA: Please see below. IMAGING: R hip XR: FINDINGS: Bones/joints: Right femoral neck displaced fracture. Soft tissues: Unremarkable. CXR: Lungs: Unremarkable. No consolidation. Pleural spaces: Unremarkable. No pleural effusion. No pneumothorax. Heart/Mediastinum: Unremarkable. No cardiomegaly. Bones/joints: Unremarkable. IMPRESSION: No acute findings. Postop R hip XR: Status post right hip replacement with normal appearance and positioning to the orthopedic hardware. Overlying postsurgical changes with swelling and subcutaneous emphysema. IMPRESSION: Satisfactory right hip replacement radiograph. PROGNOSIS: Good ACTIVITY: As tolerated. DIET: regular DISCHARGE PLAN: ARU DISPOSITION: 62 D/T Rehab Facility. DISCHARGE INSTRUCTIONS: ARU discharge. medicine will continue to follow. ITEMS TO FOLLOWUP ON ON OUTPATIENT: R hip fracture DISCHARGE CONDITION: Stable TIME SPENT ON DISCHARGE: 40 minutes. Vital Signs/I&Os Vital Signs Date Time Temp Pulse Resp B/P (MAP) Pulse Ox O2 Delivery O2 Flow Rate FiO2 06/27/21 18:01 18 06/27/21 14:00 98.7 79 102/45 (64) 98 Nasal Cannula 2.0 I&O- Last 24 Hours up to 6 AM 06/27/21 06:00 Intake Total 2120 ml Output Total 150 ml Balance 1970 ml Laboratory Data Labs 24H Laboratory Tests 2 06/27/21 05:45: Immature Granulocyte % (Auto) 0.5, Neutrophils (%) (Auto) 78.7H, Lymphocytes (%) (Auto) 14.9L, Monocytes (%) (Auto) 4.1, Eosinophils (%) (Auto) 1.6, Basophils (%) (Auto) 0.2, Neutrophils # (Auto) 6.9, Lymphocytes # (Auto) 1.3L, Monocytes # (Auto) 0.4, Eosinophils # (Auto) 0.1, Basophils # (Auto) 0.0, Nucleated Red Blood Cells % (auto) 0.0, Anion Gap 3L, Glomerular Filtration Rate 56.4, Calcium Level 8.5L CBC/BMP Laboratory Tests 06/27/21 05:45 Microbiology Microbiology 06/26/21 Urine Culture, Received Pending Discharge Medications Scheduled Budesonide/Formoterol (Symbicort 160-4.5 Mcg Inhaler) 6 Gm Hfa.aer.ad, 2 PUFF INH BID, (Reported) Clonazepam (Clonazepam) 0.5 Mg Tablet, 0.5 MG PO BID, (Reported) Cyanocobalamin (Vitamin B-12) (Vitamin B-12) 1,000 Mcg Capsule, 1,000 MCG PO DAILY, (Reported) Fludrocortisone Acetate (Fludrocortisone Acetate) 0.1 Mg Tablet, 0.1 MG PO DAILY, (Reported) Fluoxetine HCl (Fluoxetine HCl) 10 Mg Tablet, 10 MG PO DAILY, (Reported) Levothyroxine Sodium (Levothyroxine Sodium) 75 Mcg Tablet, 75 MCG PO DAILY, (Reported) Loratadine (Claritin) 10 Mg Cap, 10 MG PO DAILY, (Reported) Mirtazapine (Remeron) 15 Mg Tablet, 15 MG PO QHS, (Reported) Rivaroxaban (Xarelto) 10 Mg Tablet, 10 MG PO DAILY@18 Scheduled PRN Albuterol Sulf (Albuterol Sulfate) 2.5 Mg/3 Ml Nebu, INH BID PRN for SOB/WHEEZING, (Reported) Albuterol Sulfate (Ventolin Hfa) 108 Mcg/Act Aer, 2 PUFFS INH Q4HP PRN for SOB/WHEEZING, (Reported) Oxycodone/Acetaminophen (Oxycodone-Acetaminophen 5-325) 1 Each Tablet, 1 TAB PO Q6HP PRN for SEVERE PAIN (PS 8-10) Allergies Coded Allergies: No Known Drug Allergies (Verified Allergy, Unknown, 06/26/21) NIEVES FOOTE MD Jun 27, 2021 19:04
== END 2021-06-27 18:30 | DRG 522 ==
LOC: M ED 03:15 → M ED INP 05:52 → ENRESERV 08:35 → M MS5PR 10:31
PROVIDERS: ADMIT Family Medicine; ATTEND Internal Medicine
PROC: 0SRR0J9 Replacement of Right Hip Joint, Femoral Surface with Synthetic Substitute, Cemented, Open Approach (ICD-10-PCS; principal; 2021-06-26 13:06)
DX: S72.011A Unspecified intracapsular fracture of right femur, initial encounter for closed fracture (principal); F41.9 Anxiety disorder, unspecified; F32.A Depression, unspecified; J45.909 Unspecified asthma, uncomplicated; I95.9 Hypotension, unspecified; W18.09XA Striking against other object with subsequent fall, initial encounter; Y92.008 Other place in unspecified non-institutional (private) residence as the place of occurrence of the external cause; Y93.89 Activity, other specified; Y99.8 Other external cause status; Z79.899 Other long term (current) drug therapy

== ENCOUNTER → 2021-07-20 | Outpatient (REF) | payer MEDICARE, OTHER ==
[~2021-07-20] MED LIST changes: +COMBAER6 INH; +DICL1PAT6 TOP; +FLUO10TA30 PO; +FLUO40CA PO; +LEVO75TA4 PO; +MIRT-62 PO; +OXYC-517 PO; +PANT40TA29 PO; +PERCOCET PO; +SYMB16INH INH; +XARE10TA PO
[2021-07-20 08:52] LABS: HEMATOCRIT 34.6 % (36.0-47.0); HEMOGLOBIN 10.9 g/dl (12.0-15.5); MEAN CORPUSCULAR HEMOGLOBIN 29.9 pg (27.0-33.0); MEAN CORPUSCULAR HGB CONC 31.5 g/dl (32.0-36.5); MEAN CORPUSCULAR VOLUME 94.8 fl (80.0-96.0); PLATELET COUNT, AUTOMATED 231 10^3/uL (150-450); RED BLOOD COUNT 3.65 10^6/uL (4.00-5.40); WHITE BLOOD COUNT 5.7 10^3/uL (4.0-10.0)
[2021-07-20 09:30] LABS: ALT/SGPT 23 U/L (12-78); BILIRUBIN,TOTAL 0.5 MG/DL (0.2-1.0); BLOOD UREA NITROGEN 15 MG/DL (7-18); CALCIUM LEVEL 8.9 MG/DL (8.8-10.2); CARBON DIOXIDE LEVEL 24 MEQ/L (21-32); CHLORIDE LEVEL 115 MEQ/L (98-107); CREATININE FOR GFR 0.88 MG/DL (0.55-1.30); GLOMERULAR FILTRATION RATE > 60.0 (>39); GLUCOSE, FASTING 110 MG/DL (70-100); POTASSIUM SERUM 4.1 MEQ/L (3.5-5.1); SODIUM LEVEL 144 MEQ/L (136-145); TOTAL PROTEIN 6.1 GM/DL (6.4-8.2)
== END ==
LOC: SKLAB5 07:00
PROVIDERS: ATTEND Neuromusculoskeletal Medicine & OMM
DX: D64.9 Anemia, unspecified (principal); E03.9 Hypothyroidism, unspecified

== ENCOUNTER → 2021-07-20 | Outpatient (CLI) | payer MEDICARE, OTHER | LOC: M SOG 10:00 | PROVIDERS: ATTEND Orthopaedic Surgery | DX: Z96.641 Presence of right artificial hip joint (principal) ==

== ENCOUNTER → 2021-09-25 | Outpatient (CLI) | payer MEDICARE, OTHER | LOC: M SOG 10:37 | PROVIDERS: ATTEND Orthopaedic Surgery Sports Medicine | DX: Z96.641 Presence of right artificial hip joint (principal) ==

== ENCOUNTER → 2022-02-01 | Outpatient (CLI) | payer MEDICARE, OTHER ==
[~2022-02-01] MED LIST changes: +ALBU2.5V10 INH; -ALBU83IN INH
== END ==
LOC: M SOG 10:19
PROVIDERS: ATTEND Orthopaedic Surgery Adult Reconstructive Orthopaedic Surgery
DX: S72.111A Displaced fracture of greater trochanter of right femur, initial encounter for closed fracture (principal)

== ENCOUNTER → 2023-02-01 | Outpatient (CLI) | payer MEDICARE, OTHER ==
[2023-02-01 15:42] LABS: BASO % 0.5 % (0.0-1.0); EOS # 0.1 10^3/uL (0.0-0.5); HEMATOCRIT 36.6 % (36.0-47.0); HEMOGLOBIN 11.5 g/dl (12.0-15.5); LYMPH # 1.3 10^3/uL (1.5-5.0); LYMPH % 19.1 % (24.0-44.0); MEAN CORPUSCULAR HEMOGLOBIN 30.9 pg (27.0-33.0); MEAN CORPUSCULAR HGB CONC 31.4 g/dl (32.0-36.5); MEAN CORPUSCULAR VOLUME 98.4 fl (80.0-96.0); MONO # 0.4 10^3/uL (0.0-0.8); MONO % 6.7 % (2.0-8.0); NEUTROPHILS # 4.7 10^3/uL (1.5-8.5); NEUTROPHILS % 71.2 % (36.0-66.0); PLATELET COUNT, AUTOMATED 255 10^3/uL (150-450); RED BLOOD COUNT 3.72 10^6/uL (4.00-5.40); WHITE BLOOD COUNT 6.6 10^3/uL (4.0-10.0)
[2023-02-01 16:11] LABS: ALBUMIN 3.8 G/DL (3.2-5.2); BILIRUBIN,TOTAL 0.7 MG/DL (0.3-1.2); CALCIUM LEVEL 9.8 MG/DL (8.3-10.6); CREATININE FOR GFR 1.15 MG/DL (0.55-1.30); GLOMERULAR FILTRATION RATE 48.5 (>39); POTASSIUM SERUM 4.7 MMOL/L (3.5-5.1); TOTAL PROTEIN 6.6 G/DL (5.7-8.2)
[2023-02-01 16:12] LABS: FREE T4 1.1 NG/DL (0.89-1.76)
[2023-02-01 16:13] LABS: THYROID STIMULATING HORMONE 9.624 uIU/ML (0.55-4.78)
== END ==
LOC: M PLALAB 13:26
PROVIDERS: ATTEND Psychiatry & Neurology Neurology
DX: E53.8 Deficiency of other specified B group vitamins (principal); E07.9 Disorder of thyroid, unspecified

== ENCOUNTER → 2023-03-01 | Outpatient (CLI) | payer MEDICARE, OTHER ==
[2023-03-01 17:03] LABS: FREE T4 0.95 NG/DL (0.89-1.76)
[2023-03-01 17:04] LABS: THYROID STIMULATING HORMONE 10.94 uIU/ML (0.55-4.78)
== END ==
LOC: M PLALAB 11:10
PROVIDERS: ATTEND Family Medicine
DX: E03.9 Hypothyroidism, unspecified (principal)

== ENCOUNTER → 2023-03-06 | Outpatient (CLI) | payer MEDICARE, OTHER | LOC: M SOG 07:55 | PROVIDERS: ATTEND Orthopaedic Surgery | DX: S72.111D Displaced fracture of greater trochanter of right femur, subsequent encounter for closed fracture with routine healing (principal); Z96.641 Presence of right artificial hip joint ==

== ENCOUNTER 2023-06-27 12:24 | Observation (INO) | payer MEDICARE, OTHER ==
[~2023-06-27] VITALS: Ht 157.5 cm; Wt 61.0 kg
[~2023-06-27 12:24] MED LIST changes: -MIRT-62 PO; +MIRT-88 PO
[2023-06-27 13:50] LABS: BASO % 0.3 % (0.0-1.0); EOS % 0.1 % (0.0-3.0); HEMATOCRIT 35.7 % (36.0-47.0); HEMOGLOBIN 11.9 g/dl (12.0-15.5); LYMPH # 0.8 10^3/uL (1.5-5.0); LYMPH % 7.3 % (24.0-44.0); MEAN CORPUSCULAR HGB CONC 33.3 g/dl (32.0-36.5); MONO # 0.6 10^3/uL (0.0-0.8); MONO % 6.2 % (2.0-8.0); NEUTROPHILS # 8.7 10^3/uL (1.5-8.5); PLATELET COUNT, AUTOMATED 179 10^3/uL (150-450); RED BLOOD COUNT 3.84 10^6/uL (4.00-5.40); WHITE BLOOD COUNT 10.3 10^3/uL (4.0-10.0)
[2023-06-27 14:04] LABS: INR 1.21; PROTHROMBIN TIME 14.9 SECONDS (12.5-14.5)
[2023-06-27 14:05] LABS: PARTIAL THROMBOPLASTIN TIME 32.4 SECONDS (24.8-34.2)
[2023-06-27 14:13] LABS: ALBUMIN 3.1 G/DL (3.2-5.2); ALKALINE PHOSPHATASE 62 U/L (46-116); ALT/SGPT 18 U/L (7.0-40); AST/SGOT 29 U/L (<34); BILIRUBIN,DIRECT 0.3 MG/DL (<0.4); BILIRUBIN,TOTAL 1.1 MG/DL (0.3-1.2); BLOOD UREA NITROGEN 17 MG/DL (9-23); CALCIUM LEVEL 8.8 MG/DL (8.3-10.6); CARBON DIOXIDE LEVEL 23 MMOL/L (20-31); CHLORIDE LEVEL 104 MMOL/L (98-107); CREATININE FOR GFR 0.77 MG/DL (0.55-1.30); GLOMERULAR FILTRATION RATE > 60.0 (>32); GLUCOSE, FASTING 87 MG/DL (74-106); POTASSIUM SERUM 3.8 MMOL/L (3.5-5.1); SODIUM LEVEL 136 MMOL/L (136-145)
[2023-06-27 14:22] LABS: RSV AMPLIFICATION NEGATIVE (NEGATIVE)
[2023-06-27] MEDS ORDERED: MED REC IN PROGRESS XX SCH (16:00)
[2023-06-27] MEDS: NS 1,000 ML IV ONE (17:20)
[2023-06-27 18:21] LABS: THYROID STIMULATING HORMONE 30.237 uIU/ML (0.55-4.78)
[2023-06-27 18:23] LABS: FOLATE 12.5 NG/ML (>5.4)
[2023-06-27] MEDS ORDERED: LEVO125T4 PO (19:43)
[2023-06-27] MEDS ORDERED: med rec comment (19:45)
[2023-06-27] MEDS ORDERED: ASPI-226 PO (19:45)
[2023-06-27] MEDS ORDERED: HOME MED LIST COMPLETE! XX SCH ×2 (19:50→20:05)
[2023-06-27 20:42] VITALS: BP 163/72; TEMP 98.6; O2SAT 97
[2023-06-27] MEDS: ACETAMINOPHEN TAB 650MG DOSE (2X325MG) PO PRN (21:13)
[2023-06-27 21:15] VITALS: BP 146/76
[2023-06-27] MEDS: amLODIPine 5 MG TAB PO SCH (21:15)
[2023-06-27] MEDS: SODIUM CHLORIDE NASAL 0.65% SPRAY BTL (OCEAN) SCH (21:24)
[2023-06-27] MEDS: FLUTICASONE PROP 0.05% NASAL SPRAY 16 GM (FLONASE) NARES SCH (21:24)
[2023-06-28 00:42] VITALS: BP 139/73; TEMP 97.9; O2SAT 96
[2023-06-28 04:42] VITALS: BP 140/71; TEMP 98.4; O2SAT 96
[2023-06-28 05:56] LABS: BASO % 0.4 % (0.0-1.0); EOS # 0.2 10^3/uL (0.0-0.5); EOS % 2.8 % (0.0-3.0); HEMATOCRIT 33.1 % (36.0-47.0); HEMOGLOBIN 11.1 g/dl (12.0-15.5); LYMPH # 1.1 10^3/uL (1.5-5.0); LYMPH % 15.8 % (24.0-44.0); MEAN CORPUSCULAR HEMOGLOBIN 31.4 pg (27.0-33.0); MEAN CORPUSCULAR HGB CONC 33.5 g/dl (32.0-36.5); MEAN CORPUSCULAR VOLUME 93.8 fl (80.0-96.0); MONO # 0.5 10^3/uL (0.0-0.8); MONO % 6.7 % (2.0-8.0); NEUTROPHILS # 5.2 10^3/uL (1.5-8.5); PLATELET COUNT, AUTOMATED 188 10^3/uL (150-450); RED BLOOD COUNT 3.53 10^6/uL (4.00-5.40); WHITE BLOOD COUNT 7.2 10^3/uL (4.0-10.0)
[2023-06-28 06:16] LABS: BLOOD UREA NITROGEN 19 MG/DL (9-23); CALCIUM LEVEL 9.1 MG/DL (8.3-10.6); CARBON DIOXIDE LEVEL 22 MMOL/L (20-31); CHLORIDE LEVEL 106 MMOL/L (98-107); CREATININE FOR GFR 0.81 MG/DL (0.55-1.30); GLOMERULAR FILTRATION RATE > 60.0 (>32); GLUCOSE, FASTING 75 MG/DL (74-106); MAGNESIUM LEVEL 2.1 MG/DL (1.8-2.4); POTASSIUM SERUM 3.5 MMOL/L (3.5-5.1); SODIUM LEVEL 138 MMOL/L (136-145)
[2023-06-28] MEDS ORDERED: LORATADINE 10 MG TAB PO PRN (07:15)
[2023-06-28 07:50] LABS: FREE T4 0.34 NG/DL (0.89-1.76)
[2023-06-28 07:52] LABS: TOTAL T3 28.7 NG/DL (60.0-181.0)
[2023-06-28] MEDS: IPRATROPIUM 0.5MG/ALBUTEROL 2.5MG INH SOL UD 3ML (DUONEB) NEB SCH (07:54)
[2023-06-28] MEDS: SYMBICORT 160/4.5MCG INHALER 6GM INH SCH (07:54)
[2023-06-28] MEDS: FLUDROCORTISONE ACETATE 0.1 MG TAB PO SCH (08:50)
[2023-06-28] MEDS: CYANOCOBALAMIN 500 MCG TAB PO SCH (08:51)
[2023-06-28] MEDS: ASPIRIN 81MG ENTERIC TABLET PO SCH (08:51)
[2023-06-28] MEDS: ENOXAPARIN 40MG/0.4ML SYRINGE (J1650 PER 10MG) SC SCH (08:52)
[2023-06-28] MEDS: LEVOTHYROXINE 125MCG TABLET (0.125MG) PO SCH (08:52)
[2023-06-28 08:53] VITALS: BP 113/53; TEMP 97.7; O2SAT 96
[2023-06-28] MEDS ORDERED: LEVOTHYROXINE 125MCG TABLET (0.125MG) PO SCH (09:00)
[2023-06-28] MEDS ORDERED: IPRATROPIUM 0.5MG/ALBUTEROL 2.5MG INH SOL UD 3ML (DUONEB) NEB PRN (11:15)
[2023-06-28 12:00] VITALS: BP 121/55; TEMP 97.9; O2SAT 95
[2023-06-28] MEDS: LIDOCAINE 5% (LIDODERM) PATCH TD SCH (15:43)
[2023-06-28] MEDS: FLUoxetine 10 MG CAP PO SCH (20:30)
[2023-06-28] MEDS: MIRTAZAPINE 15 MG TAB PO SCH (20:30)
[2023-06-29 06:00] VITALS: BP 154/71; TEMP 98.4; O2SAT 98
[2023-06-30 04:14] VITALS: BP 155/73; TEMP 97.5; O2SAT 96
[2023-06-30 10:00] VITALS: BP 113/50; TEMP 97.7; O2SAT 93
[2023-06-30] MEDS ORDERED: PILL CUTTER 1 EACH XX ONE (21:34)
[2023-06-30] MEDS: clonazePAM 0.5 MG TAB PO PRN (21:37)
[2023-07-01 04:31] VITALS: BP 156/74; TEMP 97.9; O2SAT 98
[2023-07-01 09:00] VITALS: BP 159/72
[2023-07-01] MEDS ORDERED: **hydrALAZINE HCL** 25 MG TAB PO PRN (11:00)
[2023-07-02 06:00] VITALS: BP 164/74; TEMP 97.8; O2SAT 97
[2023-07-02 09:09] VITALS: BP 149/74
[2023-07-03 06:00] VITALS: BP 142/77; TEMP 97.9; O2SAT 93
[2023-07-03 08:16] VITALS: BP 116/63
[2023-07-04 05:56] VITALS: BP 143/71; TEMP 98.4; O2SAT 97
[2023-07-04 08:20] VITALS: BP 114/60
[2023-07-05 04:16] VITALS: BP 152/61; TEMP 98.4; O2SAT 97
[2023-07-05 08:23] VITALS: BP 118/58
[2023-07-06 05:00] VITALS: BP 134/60; TEMP 97.9; O2SAT 96
[2023-07-06 10:20] VITALS: BP 92/52
[2023-07-06 12:48] VITALS: BP 133/62
[2023-07-07 06:00] VITALS: BP 145/72; TEMP 98.1; O2SAT 98
[2023-07-07] MEDS: MOM 30ML SUSPENSION UDC PO PRN (10:33)
[2023-07-07] MEDS: DICLOFENAC EPOLAMINE 1.3% PATCH TOP SCH (13:07)
[2023-07-07] MEDS: MIRALAX *UNIT DOSE* 17GM PACKET PO SCH (20:47)
[2023-07-08 06:00] VITALS: BP 134/65; TEMP 98.2; O2SAT 96
[2023-07-08 08:28] VITALS: BP 110/50
[2023-07-09 05:28] VITALS: BP 127/68; TEMP 97.5; O2SAT 95
[2023-07-09 08:57] VITALS: BP 103/50
[2023-07-09 11:06] VITALS: BP 115/54
[2023-07-10 05:46] VITALS: BP 111/55; TEMP 97.7; O2SAT 94
[2023-07-10 08:35] VITALS: BP 124/61
[2023-07-11 04:45] VITALS: BP 128/59; TEMP 97.9; O2SAT 95
[2023-07-11 11:45] VITALS: BP 91/49
[2023-07-11 14:20] VITALS: BP 71/37
[2023-07-11 14:25] VITALS: BP 102/53
[2023-07-11] MEDS: MIDODRINE 2.5 MG TAB PO ONE ×2 (14:46→18:37)
[2023-07-11 16:46] LABS: BASO % 0.5 % (0.0-1.0); EOS # 0.2 10^3/uL (0.0-0.5); EOS % 2.5 % (0.0-3.0); HEMATOCRIT 30.7 % (36.0-47.0); HEMOGLOBIN 9.8 g/dl (12.0-15.5); LYMPH # 1.5 10^3/uL (1.5-5.0); LYMPH % 23.5 % (24.0-44.0); MEAN CORPUSCULAR HEMOGLOBIN 31.5 pg (27.0-33.0); MEAN CORPUSCULAR HGB CONC 31.9 g/dl (32.0-36.5); MEAN CORPUSCULAR VOLUME 98.7 fl (80.0-96.0); MONO # 0.4 10^3/uL (0.0-0.8); NEUTROPHILS # 4.2 10^3/uL (1.5-8.5); NEUTROPHILS % 66.2 % (36.0-66.0); PLATELET COUNT, AUTOMATED 324 10^3/uL (150-450); RED BLOOD COUNT 3.11 10^6/uL (4.00-5.40); WHITE BLOOD COUNT 6.3 10^3/uL (4.0-10.0)
[2023-07-11 17:13] LABS: ALBUMIN 2.8 G/DL (3.2-5.2); BILIRUBIN,TOTAL 0.4 MG/DL (0.3-1.2); CALCIUM LEVEL 8.7 MG/DL (8.3-10.6); GLOMERULAR FILTRATION RATE 56.8 (>32); TOTAL PROTEIN 5.4 G/DL (5.7-8.2)
[2023-07-11 18:17] VITALS: BP 104/52
[2023-07-12 05:49] VITALS: BP 120/52; TEMP 98.1; O2SAT 96
[2023-07-12] MEDS: MIDODRINE 2.5 MG TAB PO SCH (09:10)
[2023-07-12 09:11] VITALS: BP 96/40
[2023-07-12 12:13] VITALS: BP 116/57
[2023-07-12 16:12] VITALS: BP 114/54
[2023-07-13 05:22] VITALS: BP 138/65; TEMP 97.9; O2SAT 97
[2023-07-13 11:28] VITALS: BP 97/54
[2023-07-13 15:24] VITALS: BP 126/74
[2023-07-14 06:00] VITALS: BP 143/61; TEMP 98.2; O2SAT 96
[2023-07-14 08:20] VITALS: BP 123/74
[2023-07-14 11:19] VITALS: BP 123/77
[2023-07-14 15:22] VITALS: BP 97/55
[2023-07-15 04:40] VITALS: BP 153/79; TEMP 98.4; O2SAT 95
[2023-07-15] MEDS ORDERED: IPRA0.00 NEB (12:02)
[2023-07-15] MEDS ORDERED: MIRA33506 PO (12:02)
[2023-07-15] MEDS ORDERED: DICL1PAT6 TOP (12:02)
[2023-07-15] MEDS ORDERED: MIDO2.5T PO (12:02)
[2023-07-15] MEDS ORDERED: ACET1TAB55 PO (12:02)
[2023-07-15] MEDS ORDERED: FLUTISP NARES (12:02)
[2023-07-15] MEDS ORDERED: Sodium Chloride Nasal Spray (12:02)
== END 2023-07-15 14:43 ==
LOC: EDBD 12:24 → M ED 12:24 → M ED INP 12:25 → ENRESERV 20:05 → M MSPAV 20:42
PROVIDERS: ADMIT Internal Medicine; ATTEND Internal Medicine Nephrology
DX: F03.93 Unspecified dementia, unspecified severity, with mood disturbance (principal); R41.1 Anterograde amnesia; I95.1 Orthostatic hypotension; R29.6 Repeated falls; R26.81 Unsteadiness on feet; J32.9 Chronic sinusitis, unspecified; F41.9 Anxiety disorder, unspecified; F32.A Depression, unspecified; M25.551 Pain in right hip; Z96.641 Presence of right artificial hip joint; E03.9 Hypothyroidism, unspecified; J45.909 Unspecified asthma, uncomplicated; G47.33 Obstructive sleep apnea (adult) (pediatric); I50.30 Unspecified diastolic (congestive) heart failure; I27.81 Cor pulmonale (chronic); H81.10 Benign paroxysmal vertigo, unspecified ear; E53.8 Deficiency of other specified B group vitamins; L80 Vitiligo; K59.00 Constipation, unspecified; I11.0 Hypertensive heart disease with heart failure; Z20.822 Contact with and (suspected) exposure to COVID-19; Z80.1 Family history of malignant neoplasm of trachea, bronchus and lung; Z82.3 Family history of stroke; Z79.899 Other long term (current) drug therapy; Z79.82 Long term (current) use of aspirin; Z79.01 Long term (current) use of anticoagulants; Z79.51 Long term (current) use of inhaled steroids; Z79.890 Hormone replacement therapy
CPT/HCPCS: 36415; 70450; 71045; 72125; 73502; 73552; 80048; 80053; 80076; 81001; 82140; 82607; 82746; 83735; 84145; 84439; 84443; 84480; 85025; 85610; 85730; 87631; 87635; 93005; 93041; 94640; 94760; 96372; 97110; 97116; 97161; 97165; 97530; 97535; 99285; G0378; J1650

== ENCOUNTER → 2023-07-22 | Outpatient (REF) | payer MEDICARE, OTHER ==
[~2023-07-22] MED LIST changes: +ACET1TAB55 PO; +ASPI-226 PO; +FLUTISP NARES; +IPRA0.00 NEB; +LEVO125T4 PO; +MIDO2.5T PO; +MIRA1POW3 PO; +Sodium Chloride Nasal Spray; +med rec comment
[2023-07-22 09:25] LABS: HEMATOCRIT 32.5 % (36.0-47.0); HEMOGLOBIN 10.2 g/dl (12.0-15.5); MEAN CORPUSCULAR HEMOGLOBIN 31.1 pg (27.0-33.0); MEAN CORPUSCULAR HGB CONC 31.4 g/dl (32.0-36.5); MEAN CORPUSCULAR VOLUME 99.1 fl (80.0-96.0); PLATELET COUNT, AUTOMATED 239 10^3/uL (150-450); RED BLOOD COUNT 3.28 10^6/uL (4.00-5.40); WHITE BLOOD COUNT 4.5 10^3/uL (4.0-10.0)
[2023-07-22 09:38] LABS: BLOOD UREA NITROGEN 15 MG/DL (9-23); CARBON DIOXIDE LEVEL 26 MMOL/L (20-31); CHLORIDE LEVEL 110 MMOL/L (98-107); CREATININE FOR GFR 0.71 MG/DL (0.55-1.30); GLOMERULAR FILTRATION RATE > 60.0 (>32); GLUCOSE, FASTING 114 MG/DL (74-106); POTASSIUM SERUM 4.2 MMOL/L (3.5-5.1); SODIUM LEVEL 142 MMOL/L (136-145)
== END ==
LOC: SKLAB5 11:55
PROVIDERS: ATTEND Nurse Practitioner Family
DX: I50.9 Heart failure, unspecified (principal)

== ENCOUNTER → 2023-07-29 | Outpatient (REF) | payer MEDICARE, OTHER ==
[~2023-07-29] MED LIST changes: -MIRA1POW3 PO; +MIRA33506 PO
[2023-07-29 09:00] LABS: HEMATOCRIT 31.8 % (36.0-47.0); HEMOGLOBIN 10.1 g/dl (12.0-15.5); MEAN CORPUSCULAR HEMOGLOBIN 31.4 pg (27.0-33.0); MEAN CORPUSCULAR HGB CONC 31.8 g/dl (32.0-36.5); MEAN CORPUSCULAR VOLUME 98.8 fl (80.0-96.0); PLATELET COUNT, AUTOMATED 196 10^3/uL (150-450); RED BLOOD COUNT 3.22 10^6/uL (4.00-5.40)
[2023-07-29 09:06] LABS: BLOOD UREA NITROGEN 12 MG/DL (9-23); CALCIUM LEVEL 9.5 MG/DL (8.3-10.6); CARBON DIOXIDE LEVEL 27 MMOL/L (20-31); CHLORIDE LEVEL 109 MMOL/L (98-107); CREATININE FOR GFR 0.67 MG/DL (0.55-1.30); GLOMERULAR FILTRATION RATE > 60.0 (>32); GLUCOSE, FASTING 84 MG/DL (74-106); SODIUM LEVEL 142 MMOL/L (136-145)
== END ==
LOC: SKLAB5 09:57
PROVIDERS: ATTEND Nurse Practitioner Family
DX: I50.9 Heart failure, unspecified (principal)

== ENCOUNTER → 2023-07-30 | Outpatient (REF) | payer MEDICARE, OTHER | LOC: SKLAB5 07-29 11:30 | PROVIDERS: ATTEND Nurse Practitioner Family | DX: R41.82 Altered mental status, unspecified (principal); I50.9 Heart failure, unspecified ==

== ENCOUNTER → 2023-08-02 | Outpatient (REF) | payer MEDICARE, OTHER ==
[~2023-08-02] MED LIST changes: +MIRA1POW3 PO; -MIRA33506 PO
[2023-08-02 11:48] LABS: BASO % 0.4 % (0.0-1.0); EOS # 0.2 10^3/uL (0.0-0.5); EOS % 3.6 % (0.0-3.0); HEMATOCRIT 32.3 % (36.0-47.0); HEMOGLOBIN 10.1 g/dl (12.0-15.5); LYMPH # 1.4 10^3/uL (1.5-5.0); LYMPH % 28.5 % (24.0-44.0); MEAN CORPUSCULAR HEMOGLOBIN 31.2 pg (27.0-33.0); MEAN CORPUSCULAR HGB CONC 31.3 g/dl (32.0-36.5); MEAN CORPUSCULAR VOLUME 99.7 fl (80.0-96.0); MONO # 0.5 10^3/uL (0.0-0.8); MONO % 9.9 % (2.0-8.0); NEUTROPHILS # 2.9 10^3/uL (1.5-8.5); NEUTROPHILS % 57.2 % (36.0-66.0); PLATELET COUNT, AUTOMATED 234 10^3/uL (150-450); RED BLOOD COUNT 3.24 10^6/uL (4.00-5.40); WHITE BLOOD COUNT 5.1 10^3/uL (4.0-10.0)
[2023-08-02 12:21] LABS: ALBUMIN 3.1 G/DL (3.2-5.2); ALKALINE PHOSPHATASE 171 U/L (46-116); ALT/SGPT 18 U/L (7.0-40); AST/SGOT 17 U/L (<34); BILIRUBIN,TOTAL 0.4 MG/DL (0.3-1.2); BLOOD UREA NITROGEN 12 MG/DL (9-23); CALCIUM LEVEL 9.4 MG/DL (8.3-10.6); CARBON DIOXIDE LEVEL 27 MMOL/L (20-31); CHLORIDE LEVEL 111 MMOL/L (98-107); CREATININE FOR GFR 0.66 MG/DL (0.55-1.30); GLOMERULAR FILTRATION RATE > 60.0 (>32); GLUCOSE, FASTING 91 MG/DL (74-106); SODIUM LEVEL 145 MMOL/L (136-145)
[2023-08-02 12:23] LABS: FREE T4 1.57 NG/DL (0.89-1.76); THYROID STIMULATING HORMONE 0.058 uIU/ML (0.55-4.78)
[2023-08-02 12:24] LABS: VITAMIN B12 LEVEL 542 PG/ML (211-911)
== END ==
LOC: SKLAB5 09:54
PROVIDERS: ATTEND Nurse Practitioner Family
DX: R41.82 Altered mental status, unspecified (principal)

== ENCOUNTER → 2023-08-05 | Outpatient (REF) | payer MEDICARE, OTHER ==
[2023-08-05 07:25] LABS: HEMATOCRIT 30.3 % (36.0-47.0); HEMOGLOBIN 9.7 g/dl (12.0-15.5); MEAN CORPUSCULAR HEMOGLOBIN 31.4 pg (27.0-33.0); MEAN CORPUSCULAR VOLUME 98.1 fl (80.0-96.0); PLATELET COUNT, AUTOMATED 240 10^3/uL (150-450); RED BLOOD COUNT 3.09 10^6/uL (4.00-5.40); WHITE BLOOD COUNT 5.2 10^3/uL (4.0-10.0)
[2023-08-05 07:49] LABS: BLOOD UREA NITROGEN 11 MG/DL (9-23); CALCIUM LEVEL 8.5 MG/DL (8.3-10.6); CARBON DIOXIDE LEVEL 28 MMOL/L (20-31); CHLORIDE LEVEL 112 MMOL/L (98-107); CREATININE FOR GFR 0.71 MG/DL (0.55-1.30); GLOMERULAR FILTRATION RATE > 60.0 (>32); GLUCOSE, FASTING 84 MG/DL (74-106); POTASSIUM SERUM 3.9 MMOL/L (3.5-5.1); SODIUM LEVEL 144 MMOL/L (136-145)
== END ==
LOC: SKLAB5 07:53
PROVIDERS: ATTEND Nurse Practitioner Family
DX: I50.9 Heart failure, unspecified (principal)

== ENCOUNTER → 2023-09-04 | Outpatient (REF) | payer MEDICARE, OTHER ==
[~2023-09-04] MED LIST changes: -MIRA1POW3 PO; +MIRA33506 PO
[2023-09-04 11:11] LABS: THYROXINE (T4) 10.7 UG/DL (4.5-10.9)
[2023-09-04 11:12] LABS: THYROID STIMULATING HORMONE 0.282 uIU/ML (0.55-4.78)
== END ==
LOC: SKLAB8 09:55
PROVIDERS: ATTEND Internal Medicine
DX: E03.9 Hypothyroidism, unspecified (principal)

== ENCOUNTER 2023-09-11 21:36 | Emergency (ER) | payer MEDICARE, OTHER ==
[2023-09-11 22:26] LABS: BASO % 0.3 % (0.0-1.0); EOS % 0.3 % (0.0-3.0); HEMATOCRIT 34.7 % (36.0-47.0); HEMOGLOBIN 11.1 g/dl (12.0-15.5); LYMPH # 0.9 10^3/uL (1.5-5.0); LYMPH % 13.2 % (24.0-44.0); MEAN CORPUSCULAR HEMOGLOBIN 30.3 pg (27.0-33.0); MEAN CORPUSCULAR VOLUME 94.8 fl (80.0-96.0); MONO # 0.7 10^3/uL (0.0-0.8); MONO % 9.7 % (2.0-8.0); NEUTROPHILS # 5.3 10^3/uL (1.5-8.5); NEUTROPHILS % 75.5 % (36.0-66.0); PLATELET COUNT, AUTOMATED 159 10^3/uL (150-450); RED BLOOD COUNT 3.66 10^6/uL (4.00-5.40)
[2023-09-11 22:45] LABS: INR 1.14; PARTIAL THROMBOPLASTIN TIME 26.1 SECONDS (24.8-34.2); PROTHROMBIN TIME 14.2 SECONDS (12.5-14.5)
[2023-09-11 22:47] LABS: ALBUMIN 2.9 G/DL (3.2-5.2); ALKALINE PHOSPHATASE 79 U/L (46-116); ALT/SGPT 14 U/L (7.0-40); AST/SGOT 15 U/L (<34); BILIRUBIN,DIRECT 0.1 MG/DL (<0.4); BILIRUBIN,TOTAL 0.3 MG/DL (0.3-1.2); BLOOD UREA NITROGEN 17 MG/DL (9-23); CALCIUM LEVEL 7.9 MG/DL (8.3-10.6); CARBON DIOXIDE LEVEL 28 MMOL/L (20-31); CHLORIDE LEVEL 108 MMOL/L (98-107); CREATININE FOR GFR 0.78 MG/DL (0.55-1.30); GLOMERULAR FILTRATION RATE > 60.0 (>32); GLUCOSE, FASTING 98 MG/DL (74-106); POTASSIUM SERUM 3.4 MMOL/L (3.5-5.1); SODIUM LEVEL 142 MMOL/L (136-145); TOTAL PROTEIN 5.7 G/DL (5.7-8.2)
[2023-09-11 22:54] LABS: PROCALCITONIN 0.08 ng/ml
[2023-09-11 23:18] LABS: APPEARANCE, URINE HAZY (CLEAR); BACTERIA, URINE AUTO NEGATIVE (NEGATIVE); BILIRUBIN, URINE AUTO NEGATIVE (NEGATIVE); BLOOD, URINE BLOOD 1+ (NEGATIVE); COLOR, URINE AMBER (YELLOW); GLUCOSE, URINE (UA) AUTO NEGATIVE (NEGATIVE); KETONE, URINE AUTO 1+ mg/dL (NEGATIVE); LEUKOCYTE ESTERASE, URINE AUTO NEGATIVE (NEGATIVE); MUCUS, URINE SMALL (NEGATIVE); NITRITE, URINE AUTO NEGATIVE (NEGATIVE); PROTEIN, URINE AUTO 1+ mg/dL (NEGATIVE); RBC, URINE AUTO 2 /HPF (0-3); SPECIFIC GRAVITY URINE AUTO 1.025 (1.002-1.035); SQUAMOUS EPITHELIAL CELL UR AU 3 /HPF (0-6); WBC, URINE AUTO 2 /HPF (0-3)
[2023-09-11 23:47] VITALS: BP 115/62; TEMP 97.4; O2SAT 94
== END 2023-09-11 23:51 | disposition home or self-care (01) ==
LOC: M ED 21:36
DX: U07.1 COVID-19 (principal); R06.00 Dyspnea, unspecified; I44.4 Left anterior fascicular block; H81.4 Vertigo of central origin; F41.9 Anxiety disorder, unspecified; J45.909 Unspecified asthma, uncomplicated; K59.00 Constipation, unspecified; E03.9 Hypothyroidism, unspecified; Z79.52 Long term (current) use of systemic steroids; Z79.811 Long term (current) use of aromatase inhibitors; Z79.82 Long term (current) use of aspirin; Z79.899 Other long term (current) drug therapy

== ENCOUNTER → 2023-10-03 | Outpatient (REF) | payer MEDICARE, OTHER ==
[2023-10-03 08:49] LABS: THYROID STIMULATING HORMONE 1.842 uIU/ML (0.55-4.78)
[2023-10-03 08:50] LABS: FREE T4 1.02 NG/DL (0.89-1.76)
== END ==
LOC: SKLAB8 10-02 07:00
PROVIDERS: ATTEND Internal Medicine
DX: E03.9 Hypothyroidism, unspecified (principal)

== ENCOUNTER → 2023-11-12 | Outpatient (REF) | payer MEDICARE, OTHER ==
[2023-11-12 09:56] LABS: BASO % 0.5 % (0.0-1.0); EOS # 0.2 10^3/uL (0.0-0.5); EOS % 3.2 % (0.0-3.0); HEMATOCRIT 33.6 % (36.0-47.0); HEMOGLOBIN 10.9 g/dl (12.0-15.5); LYMPH # 1.7 10^3/uL (1.5-5.0); LYMPH % 22.9 % (24.0-44.0); MEAN CORPUSCULAR HEMOGLOBIN 31.4 pg (27.0-33.0); MEAN CORPUSCULAR HGB CONC 32.4 g/dl (32.0-36.5); MEAN CORPUSCULAR VOLUME 96.8 fl (80.0-96.0); MONO # 0.4 10^3/uL (0.0-0.8); MONO % 5.1 % (2.0-8.0); NEUTROPHILS # 4.9 10^3/uL (1.5-8.5); NEUTROPHILS % 67.9 % (36.0-66.0); PLATELET COUNT, AUTOMATED 194 10^3/uL (150-450); RED BLOOD COUNT 3.47 10^6/uL (4.00-5.40); WHITE BLOOD COUNT 7.3 10^3/uL (4.0-10.0)
[2023-11-12 10:24] LABS: ALBUMIN 3.1 G/DL (3.2-5.2); ALKALINE PHOSPHATASE 72 U/L (46-116); ALT/SGPT 13 U/L (7.0-40); AST/SGOT 15 U/L (<34); BILIRUBIN,TOTAL 0.4 MG/DL (0.3-1.2); BLOOD UREA NITROGEN 18 MG/DL (9-23); CALCIUM LEVEL 8.9 MG/DL (8.3-10.6); CARBON DIOXIDE LEVEL 29 MMOL/L (20-31); CHLORIDE LEVEL 106 MMOL/L (98-107); CREATININE FOR GFR 0.84 MG/DL (0.55-1.30); GLOMERULAR FILTRATION RATE > 60.0 (>32); GLUCOSE, FASTING 113 MG/DL (74-106); POTASSIUM SERUM 4.2 MMOL/L (3.5-5.1); SODIUM LEVEL 139 MMOL/L (136-145)
[2023-11-12 10:34] LABS: THYROID STIMULATING HORMONE 15.063 uIU/ML (0.55-4.78); THYROXINE (T4) 5.5 UG/DL (4.5-10.9)
[2023-11-12 10:37] LABS: FOLATE 9.68 NG/ML (>5.4); VITAMIN B12 LEVEL 697 PG/ML (211-911)
== END ==
LOC: SKLAB8 11-11 07:00
PROVIDERS: ATTEND Nurse Practitioner Family
DX: F03.90 Unspecified dementia, unspecified severity, without behavioral disturbance, psychotic disturbance, mood disturbance, and anxiety (principal); E03.9 Hypothyroidism, unspecified; R41.82 Altered mental status, unspecified

== ENCOUNTER → 2023-12-08 | Outpatient (REF) | payer MEDICARE, OTHER | LOC: SKLAB8 07:00 | PROVIDERS: ATTEND Internal Medicine | DX: S70.01XA Contusion of right hip, initial encounter (principal) ==

== ENCOUNTER → 2023-12-11 | Outpatient (REF) | payer MEDICAID, MEDICARE, OTHER ==
[2023-12-11 15:12] LABS: HEMATOCRIT 30.4 % (36.0-47.0); HEMOGLOBIN 9.6 g/dl (12.0-15.5); MEAN CORPUSCULAR HEMOGLOBIN 31.5 pg (27.0-33.0); MEAN CORPUSCULAR HGB CONC 31.6 g/dl (32.0-36.5); MEAN CORPUSCULAR VOLUME 99.7 fl (80.0-96.0); PLATELET COUNT, AUTOMATED 286 10^3/uL (150-450); RED BLOOD COUNT 3.05 10^6/uL (4.00-5.40); WHITE BLOOD COUNT 4.9 10^3/uL (4.0-10.0)
[2023-12-11 15:39] LABS: CALCIUM LEVEL 9.1 MG/DL (8.3-10.6); CREATININE FOR GFR 0.96 MG/DL (0.55-1.30); GLOMERULAR FILTRATION RATE 59.5 (>32); POTASSIUM SERUM 4.3 MMOL/L (3.5-5.1)
== END ==
LOC: SKLAB8 14:16
PROVIDERS: ATTEND Internal Medicine
DX: S32.89XD Fracture of other parts of pelvis, subsequent encounter for fracture with routine healing (principal)

== ENCOUNTER → 2023-12-11 | Outpatient (CLI) | payer MEDICARE, OTHER | LOC: M RAD 09:35 | PROVIDERS: ATTEND Nurse Practitioner Family | DX: S32.501A Unspecified fracture of right pubis, initial encounter for closed fracture (principal); S32.501G Unspecified fracture of right pubis, subsequent encounter for fracture with delayed healing; Z96.641 Presence of right artificial hip joint; W19.XXXA Unspecified fall, initial encounter; Y92.89 Other specified places as the place of occurrence of the external cause; Y93.89 Activity, other specified; Y99.8 Other external cause status; M47.817 Spondylosis without myelopathy or radiculopathy, lumbosacral region; M43.17 Spondylolisthesis, lumbosacral region ==

== ENCOUNTER → 2024-01-24 | Outpatient (CLI) | payer MEDICARE, OTHER, MEDICAID | LOC: M SOG 13:06 | PROVIDERS: ATTEND Orthopaedic Surgery | DX: S32.82XA Multiple fractures of pelvis without disruption of pelvic ring, initial encounter for closed fracture (principal); Z96.641 Presence of right artificial hip joint; Z87.81 Personal history of (healed) traumatic fracture; Y93.9 Activity, unspecified; Y92.9 Unspecified place or not applicable ==

== ENCOUNTER → 2024-02-18 | Outpatient (REF) | payer MEDICARE, OTHER, MEDICAID ==
[2024-02-18 09:25] LABS: HEMATOCRIT 32.8 % (36.0-47.0); HEMOGLOBIN 10.5 g/dl (12.0-15.5); MEAN CORPUSCULAR HEMOGLOBIN 31.5 pg (27.0-33.0); MEAN CORPUSCULAR VOLUME 98.5 fl (80.0-96.0); PLATELET COUNT, AUTOMATED 210 10^3/uL (150-450); RED BLOOD COUNT 3.33 10^6/uL (4.00-5.40); WHITE BLOOD COUNT 6.1 10^3/uL (4.0-10.0)
[2024-02-18 09:56] LABS: BLOOD UREA NITROGEN 20 MG/DL (9-23); CALCIUM LEVEL 9.5 MG/DL (8.3-10.6); CARBON DIOXIDE LEVEL 28 MMOL/L (20-31); CHLORIDE LEVEL 110 MMOL/L (98-107); CREATININE FOR GFR 0.89 MG/DL (0.55-1.30); GLOMERULAR FILTRATION RATE > 60.0 (>32); GLUCOSE, FASTING 92 MG/DL (74-106); POTASSIUM SERUM 4.4 MMOL/L (3.5-5.1); SODIUM LEVEL 144 MMOL/L (136-145)
== END ==
LOC: SKLAB8 07:34
PROVIDERS: ATTEND Internal Medicine
DX: I50.9 Heart failure, unspecified (principal)

== ENCOUNTER → 2024-03-10 | Outpatient (REF) | payer MEDICARE, OTHER, MEDICAID ==
[2024-03-10 10:20] LABS: BLOOD UREA NITROGEN 23 MG/DL (9-23); CALCIUM LEVEL 9.5 MG/DL (8.3-10.6); CARBON DIOXIDE LEVEL 25 MMOL/L (20-31); CHLORIDE LEVEL 110 MMOL/L (98-107); CREATININE FOR GFR 0.88 MG/DL (0.55-1.30); GLOMERULAR FILTRATION RATE > 60.0 (>32); GLUCOSE, FASTING 131 MG/DL (74-106); POTASSIUM SERUM 4.2 MMOL/L (3.5-5.1); SODIUM LEVEL 142 MMOL/L (136-145)
== END ==
LOC: SKLAB8 06:46
PROVIDERS: ATTEND Internal Medicine
DX: I50.9 Heart failure, unspecified (principal)

== ENCOUNTER → 2024-04-16 | Outpatient (REF) | payer MEDICAID, MEDICARE, OTHER ==
[2024-04-16 09:02] LABS: BASO % 0.2 % (0.0-1.0); EOS % 0.2 % (0.0-3.0); HEMATOCRIT 34.2 % (36.0-47.0); HEMOGLOBIN 10.9 g/dl (12.0-15.5); LYMPH # 1.9 10^3/uL (1.5-5.0); LYMPH % 40.2 % (24.0-44.0); MEAN CORPUSCULAR HEMOGLOBIN 30.9 pg (27.0-33.0); MEAN CORPUSCULAR HGB CONC 31.9 g/dl (32.0-36.5); MEAN CORPUSCULAR VOLUME 96.9 fl (80.0-96.0); MONO # 0.3 10^3/uL (0.0-0.8); MONO % 6.3 % (2.0-8.0); NEUTROPHILS # 2.5 10^3/uL (1.5-8.5); NEUTROPHILS % 52.7 % (36.0-66.0); PLATELET COUNT, AUTOMATED 189 10^3/uL (150-450); RED BLOOD COUNT 3.53 10^6/uL (4.00-5.40); WHITE BLOOD COUNT 4.7 10^3/uL (4.0-10.0)
[2024-04-16 09:36] LABS: ALBUMIN 3.4 G/DL (3.2-5.2); ALKALINE PHOSPHATASE 84 U/L (46-116); ALT/SGPT 13 U/L (7.0-40); AST/SGOT 15 U/L (<34); BILIRUBIN,TOTAL 0.6 MG/DL (0.3-1.2); BLOOD UREA NITROGEN 29 MG/DL (9-23); CALCIUM LEVEL 9.8 MG/DL (8.3-10.6); CARBON DIOXIDE LEVEL 28 MMOL/L (20-31); CHLORIDE LEVEL 110 MMOL/L (98-107); CREATININE FOR GFR 0.88 MG/DL (0.55-1.30); GLOMERULAR FILTRATION RATE > 60.0 (>32); GLUCOSE, FASTING 81 MG/DL (74-106); POTASSIUM SERUM 4.6 MMOL/L (3.5-5.1); SODIUM LEVEL 142 MMOL/L (136-145); TOTAL PROTEIN 6.6 G/DL (5.7-8.2)
[2024-04-16 09:37] LABS: THYROID STIMULATING HORMONE 9.704 uIU/ML (0.55-4.78)
== END ==
LOC: SKLAB6 06:29
PROVIDERS: ATTEND Internal Medicine
DX: R41.82 Altered mental status, unspecified (principal)

== ENCOUNTER → 2024-05-21 | Outpatient (REF) | payer MEDICARE, OTHER, MEDICAID ==
[~2024-05-21] MED LIST changes: -MIDO2.5T PO; +MIDO2.5T3 PO
[2024-05-21 10:53] LABS: HEMATOCRIT 34.1 % (36.0-47.0); HEMOGLOBIN 10.6 g/dl (12.0-15.5); MEAN CORPUSCULAR HEMOGLOBIN 30.7 pg (27.0-33.0); MEAN CORPUSCULAR HGB CONC 31.1 g/dl (32.0-36.5); MEAN CORPUSCULAR VOLUME 98.8 fl (80.0-96.0); PLATELET COUNT, AUTOMATED 199 10^3/uL (150-450); RED BLOOD COUNT 3.45 10^6/uL (4.00-5.40); WHITE BLOOD COUNT 7.2 10^3/uL (4.0-10.0)
[2024-05-21 11:11] LABS: BLOOD UREA NITROGEN 16 MG/DL (9-23); CALCIUM LEVEL 10.1 MG/DL (8.3-10.6); CARBON DIOXIDE LEVEL 30 MMOL/L (20-31); CHLORIDE LEVEL 108 MMOL/L (98-107); CREATININE FOR GFR 0.82 MG/DL (0.55-1.30); GLOMERULAR FILTRATION RATE > 60.0 (>32); GLUCOSE, FASTING 78 MG/DL (74-106); POTASSIUM SERUM 4.2 MMOL/L (3.5-5.1); SODIUM LEVEL 141 MMOL/L (136-145)
== END ==
LOC: SKLAB8 06:52
PROVIDERS: ATTEND Internal Medicine
DX: I50.9 Heart failure, unspecified (principal)

== ENCOUNTER → 2024-05-28 | Outpatient (REF) | payer MEDICARE, OTHER, MEDICAID | LOC: SKLAB8 06:47 | PROVIDERS: ATTEND Internal Medicine | DX: E03.9 Hypothyroidism, unspecified (principal) ==

== ENCOUNTER 2024-06-24 04:23 | Inpatient (IN) | payer MEDICARE, OTHER, MEDICAID ==
[~2024-06-24] VITALS: Ht 157.5 cm; Wt 73.6 kg
[2024-06-24 05:21] LABS: BASO % 0.2 % (0.0-1.0); HEMATOCRIT 32.2 % (36.0-47.0); HEMOGLOBIN 10.2 g/dl (12.0-15.5); LYMPH # 1.4 10^3/uL (1.5-5.0); LYMPH % 24.6 % (24.0-44.0); MEAN CORPUSCULAR HGB CONC 31.7 g/dl (32.0-36.5); MEAN CORPUSCULAR VOLUME 97.9 fl (80.0-96.0); MONO # 0.3 10^3/uL (0.0-0.8); MONO % 5.2 % (2.0-8.0); NEUTROPHILS % 69.5 % (36.0-66.0); PLATELET COUNT, AUTOMATED 212 10^3/uL (150-450); RED BLOOD COUNT 3.29 10^6/uL (4.00-5.40); WHITE BLOOD COUNT 5.8 10^3/uL (4.0-10.0)
[2024-06-24] MEDS: fentaNYL 100 MCG/2 ML INJECTION IV ONE (05:29)
[2024-06-24] MEDS: ACETAMINOPHEN *IV* 1,000 MG in IV 1 EA IV ONE (05:31)
[2024-06-24 05:47] LABS: BLOOD UREA NITROGEN 25 MG/DL (9-23); CALCIUM LEVEL 9.6 MG/DL (8.3-10.6); CARBON DIOXIDE LEVEL 28 MMOL/L (20-31); CHLORIDE LEVEL 109 MMOL/L (98-107); CREATININE FOR GFR 0.84 MG/DL (0.55-1.30); GLOMERULAR FILTRATION RATE > 60.0 (>32); GLUCOSE, FASTING 89 MG/DL (74-106); POTASSIUM SERUM 4.3 MMOL/L (3.5-5.1); SODIUM LEVEL 144 MMOL/L (136-145)
[2024-06-24] MEDS ORDERED: MILKSUS3 PO (08:04)
[2024-06-24] MEDS ORDERED: QUET50TA4 PO (08:04)
[2024-06-24] MEDS ORDERED: DULC10SU2 PR (08:04)
[2024-06-24] MEDS ORDERED: ACET650T15 PO (08:04)
[2024-06-24] MEDS ORDERED: MIDO10TA3 PO (08:04)
[2024-06-24] MEDS ORDERED: ACET1TAB55 PO (08:04)
[2024-06-24] MEDS ORDERED: LEVO112T2 PO (08:04)
[2024-06-24] MEDS ORDERED: ADVA1AER9 INH (08:04)
[2024-06-24] MEDS ORDERED: MIRA33506 PO (08:04)
[2024-06-24] MEDS ORDERED: OLAN1TAB16 PO (08:04)
[2024-06-24] MEDS ORDERED: ALBU10.7 INH (08:04)
[2024-06-24] MEDS ORDERED: CYAN1000VL IM (08:04)
[2024-06-24] MEDS ORDERED: HOME MED LIST COMPLETE! XX SCH (08:10)
[2024-06-24] MEDS: ENOXAPARIN 40MG/0.4ML SYRINGE (J1650 PER 10MG) SC SCH (11:02)
[2024-06-24 15:39] VITALS: BP 162/76; TEMP 98.4; O2SAT 97
[2024-06-24] MEDS: ADVAIR HFA 115/21MCG INHALER INH SCH (20:00)
[2024-06-24 20:46] VITALS: BP 160/75; TEMP 97.5; O2SAT 97
[2024-06-24] MEDS ORDERED: BISACODYL 10MG SUPP PR PRN (21:00)
[2024-06-24] MEDS ORDERED: MOM 30ML SUSPENSION UDC PO PRN (21:00)
[2024-06-24] MEDS: MIRALAX *UNIT DOSE* 17GM PACKET PO SCH (21:00)
[2024-06-24] MEDS ORDERED: PILL CUTTER 1 EACH XX PRN (21:15)
[2024-06-24] MEDS: MIRTAZAPINE 15 MG TAB PO SCH (23:26)
[2024-06-24] MEDS: QUEtiapine FUMARATE 50MG TAB PO SCH (23:26)
[2024-06-24] MEDS: ACETAMINOPHEN 650MG ER TAB (TYLENOL ARTHRITIS) PO SCH (23:26)
[2024-06-24] MEDS: clonazePAM 0.5 MG TAB PO SCH (23:26)
[2024-06-25] VITALS (8 sets, daily range): BP systolic 90–153; BP diastolic 50–80; TEMP 97.2–98.4; O2SAT 94–100
[2024-06-25] MEDS: LEVOTHYROXINE 112MCG TABLET (0.112MG) PO SCH (06:12)
[2024-06-25] MEDS: MIDODRINE 5 MG TAB PO SCH (07:30)
[2024-06-25] MEDS: FLUDROCORTISONE ACETATE 0.1 MG TAB PO SCH (08:38)
[2024-06-25] MEDS: OLANZapine 5 MG TAB PO SCH (08:40)
[2024-06-25] MEDS: FLUoxetine 20MG CAP PO SCH (08:40)
[2024-06-25] MEDS: VANCOMYCIN 500MG/10ML VIAL As Ordered ONE (10:43)
[2024-06-25] MEDS ORDERED: fentaNYL 250 MCG/5 ML INJECTION As Ordered ONE (10:58)
[2024-06-25] MEDS ORDERED: ONDANSETRON 4MG 2ML VIAL As Ordered ONE (10:58)
[2024-06-25] MEDS ORDERED: ROCURONIUM BROMIDE 50MG/5ML VIAL As Ordered ONE (10:58)
[2024-06-25] MEDS ORDERED: propofoL 200 MG/20 ML VIAL As Ordered ONE (10:58)
[2024-06-25] MEDS ORDERED: dexmedeTOMIDine (4MCG/ML)200MCG/50ML BTL (PRECEDEX) As Ordered ONE (10:58)
[2024-06-25] MEDS ORDERED: LIDOCAINE 2% 100MG/5ML SDV (FOR ANES.) As Ordered ONE (10:58)
[2024-06-25] MEDS: ceFAZolin 2 GM/D5W 50 ML IV BAG As Ordered ONE (12:00)
[2024-06-25] MEDS ORDERED: LACRILUBE (AKWA TEARS) OPHTH OINT 3.5GM As Ordered ONE (12:16)
[2024-06-25] MEDS ORDERED: ACETAMINOPHEN 1000MG/100ML IV BAG As Ordered ONE (12:16)
[2024-06-25] MEDS: TRANEXAMIC ACID 100 MG/ML 10ML VIAL As Ordered ONE (12:24)
[2024-06-25] MEDS ORDERED: ePHEDrine SULFATE 25 MG/5 ML(5MG/ML) SYRINGE As Ordered ONE (12:38)
[2024-06-25] MEDS ORDERED: SUGAMMADEX SODIUM 500 MG/5 ML VIAL (BRIDION) As Ordered ONE (12:58)
[2024-06-25] MEDS ORDERED: PHENYLephrine 500MCG 5ML (100MCG/ML) SYRINGE As Ordered ONE (12:59)
[2024-06-25] MEDS ORDERED: ALBUTEROL 90 MCG/ACT 8GM HFA INHALER INH PRN (14:40)
[2024-06-25] MEDS: NS 500 ML IV ONE (18:40)
[2024-06-25] MEDS ORDERED: AIRSUPRA INH SCH (20:00)
[2024-06-25] MEDS: SYMBICORT 80/4.5MCG INHALER 6GM INH SCH (20:04)
[2024-06-25] MEDS: ceFAZolin SOD 2 GM in IV 1 EA IV SCH (21:42)
[2024-06-26 00:10] VITALS: BP 104/49; TEMP 97.7; O2SAT 95
[2024-06-26 04:00] VITALS: BP 112/60; TEMP 97.7; O2SAT 96
[2024-06-26 08:36] VITALS: BP 113/55; TEMP 97.7; O2SAT 92
[2024-06-26 12:00] VITALS: BP 106/50; TEMP 97.7; O2SAT 95
[2024-06-26 19:35] VITALS: BP 134/52; TEMP 97.2; O2SAT 98
[2024-06-27 04:14] VITALS: BP 120/55; TEMP 97.7; O2SAT 96
[2024-06-27 07:21] LABS: HEMOGLOBIN 8.7 g/dl (12.0-15.5); MEAN CORPUSCULAR HEMOGLOBIN 31.6 pg (27.0-33.0); MEAN CORPUSCULAR HGB CONC 32.2 g/dl (32.0-36.5); MEAN CORPUSCULAR VOLUME 98.2 fl (80.0-96.0); PLATELET COUNT, AUTOMATED 159 10^3/uL (150-450); RED BLOOD COUNT 2.75 10^6/uL (4.00-5.40); WHITE BLOOD COUNT 8.1 10^3/uL (4.0-10.0)
[2024-06-27 10:52] LABS: HEMATOCRIT 26.8 % (36.0-47.0); HEMOGLOBIN 8.6 g/dl (12.0-15.5)
[2024-06-27 12:00] VITALS: BP 114/56; TEMP 97.5; O2SAT 96
[2024-06-27 17:47] VITALS: BP 151/76
[2024-06-27 19:16] VITALS: BP 111/56; TEMP 97.7; O2SAT 96
[2024-06-28 04:00] VITALS: BP 156/75; TEMP 97.3; O2SAT 97
[2024-06-28 19:30] VITALS: BP 129/59; TEMP 97.3; O2SAT 97
[2024-06-29 04:00] VITALS: BP 123/66; TEMP 97.2; O2SAT 96
[2024-06-29 06:31] LABS: ALBUMIN 2.4 G/DL (3.2-5.2); ALKALINE PHOSPHATASE 70 U/L (35-104); ALT/SGPT 13 U/L (7.0-40); AST/SGOT 33 U/L (<34); BILIRUBIN,TOTAL 0.6 MG/DL (0.3-1.2); BLOOD UREA NITROGEN 23 MG/DL (9-23); CALCIUM LEVEL 9.3 MG/DL (8.3-10.6); CARBON DIOXIDE LEVEL 28 MMOL/L (20-31); CHLORIDE LEVEL 112 MMOL/L (98-107); CREATININE FOR GFR 0.67 MG/DL (0.55-1.30); GLOMERULAR FILTRATION RATE > 60.0 (>32); GLUCOSE, FASTING 77 MG/DL (74-106); POTASSIUM SERUM 4.3 MMOL/L (3.5-5.1); SODIUM LEVEL 146 MMOL/L (136-145); TOTAL PROTEIN 5.6 G/DL (5.7-8.2)
[2024-06-29 08:30] VITALS: BP 126/53
[2024-06-29 10:22] LABS: HEMATOCRIT 27.6 % (36.0-47.0); HEMOGLOBIN 8.5 g/dl (12.0-15.5); MEAN CORPUSCULAR HEMOGLOBIN 30.7 pg (27.0-33.0); MEAN CORPUSCULAR HGB CONC 30.8 g/dl (32.0-36.5); MEAN CORPUSCULAR VOLUME 99.6 fl (80.0-96.0); PLATELET COUNT, AUTOMATED 209 10^3/uL (150-450); RED BLOOD COUNT 2.77 10^6/uL (4.00-5.40); WHITE BLOOD COUNT 6.1 10^3/uL (4.0-10.0)
[2024-06-29] MEDS ORDERED: ASPI81CH33 PO (10:31)
[2024-06-29] MEDS ORDERED: Pill Cutter XX (10:33)
[2024-06-29] MEDS ORDERED: FERR325T3 PO (10:38)
[2024-06-29] MEDS ORDERED: PANT20TA6 PO (10:40)
[2024-06-30] MEDS ORDERED: ERGO500029 PO (21:37)
[2024-06-30] MEDS ORDERED: PANT20TA51 PO (21:37)
[2024-06-30] MEDS ORDERED: ENSULIQ51 PO (21:37)
[2024-06-30] MEDS ORDERED: ASPI81TA26 PO (21:37)
[2024-06-30] MEDS ORDERED: OXYC-517 PO (21:37)
[2024-06-30] MEDS ORDERED: CALC600T18 PO (21:37)
[2024-06-30] MEDS ORDERED: FERR1TAB8 PO (21:37)
== END 2024-06-29 11:20 | DRG 522 ==
LOC: M ED 04:23 → EDBD 04:23 → M ED INP 09:01 → M MS5PR 15:15
PROVIDERS: ADMIT Student in an Organized Health Care Education/Training Program; ATTEND Student in an Organized Health Care Education/Training Program
PROC: 0SRS0J9 Replacement of Left Hip Joint, Femoral Surface with Synthetic Substitute, Cemented, Open Approach (ICD-10-PCS; principal; 2024-06-25 10:30)
DX: S72.142A Displaced intertrochanteric fracture of left femur, initial encounter for closed fracture (principal); I50.32 Chronic diastolic (congestive) heart failure; T84.021A Dislocation of internal left hip prosthesis, initial encounter; E87.0 Hyperosmolality and hypernatremia; F03.C0 Unspecified dementia, severe, without behavioral disturbance, psychotic disturbance, mood disturbance, and anxiety; R29.6 Repeated falls; F41.9 Anxiety disorder, unspecified; F32.A Depression, unspecified; E03.9 Hypothyroidism, unspecified; J45.909 Unspecified asthma, uncomplicated; G47.33 Obstructive sleep apnea (adult) (pediatric); I27.81 Cor pulmonale (chronic); E53.8 Deficiency of other specified B group vitamins; H81.10 Benign paroxysmal vertigo, unspecified ear; I95.1 Orthostatic hypotension; J44.9 Chronic obstructive pulmonary disease, unspecified; D50.9 Iron deficiency anemia, unspecified; K21.9 Gastro-esophageal reflux disease without esophagitis; M81.0 Age-related osteoporosis without current pathological fracture; R41.1 Anterograde amnesia; Z79.890 Hormone replacement therapy; Z96.643 Presence of artificial hip joint, bilateral; Z79.899 Other long term (current) drug therapy; Y92.013 Bedroom of single-family (private) house as the place of occurrence of the external cause; Y93.89 Activity, other specified; Y99.8 Other external cause status; Y83.1 Surgical operation with implant of artificial internal device as the cause of abnormal reaction of the patient, or of later complication, without mention of misadventure at the time of the procedure; W06.XXXA Fall from bed, initial encounter; Z79.82 Long term (current) use of aspirin; Z79.891 Long term (current) use of opiate analgesic

== ENCOUNTER 2024-06-30 16:18 | Inpatient (IN) | payer MEDICARE, OTHER, MEDICAID ==
[~2024-06-30] VITALS: Ht 157.5 cm; Wt 73.6 kg
[~2024-06-30 16:18] MED LIST changes: -ACET-683 PO; -ASPI81TA26 PO; -CALC600T18 PO; -ENSULIQ51 PO; -ERGO500029 PO; -FERR1TAB8 PO; -PANT20TA51 PO
[2024-06-30] MEDS: MORPHINE 2 MG/ML 1ML VIAL IV ONE (17:25)
[2024-06-30 17:48] LABS: BASO % 0.1 % (0.0-1.0); HEMATOCRIT 28.2 % (36.0-47.0); LYMPH # 1.1 10^3/uL (1.5-5.0); LYMPH % 13.7 % (24.0-44.0); MEAN CORPUSCULAR HEMOGLOBIN 31.5 pg (27.0-33.0); MEAN CORPUSCULAR HGB CONC 31.9 g/dl (32.0-36.5); MEAN CORPUSCULAR VOLUME 98.6 fl (80.0-96.0); MONO # 0.6 10^3/uL (0.0-0.8); MONO % 7.7 % (2.0-8.0); NEUTROPHILS # 6.5 10^3/uL (1.5-8.5); NEUTROPHILS % 77.3 % (36.0-66.0); PLATELET COUNT, AUTOMATED 236 10^3/uL (150-450); RED BLOOD COUNT 2.86 10^6/uL (4.00-5.40); WHITE BLOOD COUNT 8.3 10^3/uL (4.0-10.0)
[2024-06-30 18:13] LABS: BLOOD UREA NITROGEN 28 MG/DL (9-23); CALCIUM LEVEL 9.6 MG/DL (8.3-10.6); CARBON DIOXIDE LEVEL 28 MMOL/L (20-31); CHLORIDE LEVEL 108 MMOL/L (98-107); CREATININE FOR GFR 0.78 MG/DL (0.55-1.30); GLOMERULAR FILTRATION RATE > 60.0 (>32); GLUCOSE, FASTING 109 MG/DL (74-106); POTASSIUM SERUM 4.2 MMOL/L (3.5-5.1); SODIUM LEVEL 145 MMOL/L (136-145)
[2024-06-30 18:17] LABS: INR 1.07; PARTIAL THROMBOPLASTIN TIME 31.4 SECONDS (24.8-34.2); PROTHROMBIN TIME 14.2 SECONDS (12.5-14.5)
[2024-06-30] MEDS ORDERED: MOM 30ML SUSPENSION UDC PO PRN (19:40)
[2024-06-30] MEDS ORDERED: ACETAMINOPHEN 325 MG TAB PO PRN (19:40)
[2024-06-30] MEDS: ADVAIR HFA 115/21MCG INHALER INH SCH (20:00)
[2024-06-30] MEDS ORDERED: MED REC IN PROGRESS XX SCH (20:15)
[2024-06-30] MEDS ORDERED: ERGO500029 PO (21:37)
[2024-06-30] MEDS ORDERED: FERR1TAB8 PO (21:37)
[2024-06-30] MEDS ORDERED: PANT20TA51 PO (21:37)
[2024-06-30] MEDS ORDERED: ENSULIQ51 PO (21:37)
[2024-06-30] MEDS ORDERED: OXYC-517 PO (21:37)
[2024-06-30] MEDS ORDERED: ASPI81TA26 PO (21:37)
[2024-06-30] MEDS ORDERED: CALC600T18 PO (21:37)
[2024-06-30] MEDS ORDERED: HOME MED LIST COMPLETE! XX SCH (21:40)
[2024-06-30] MEDS ORDERED: BISACODYL 10MG SUPP PR PRN (21:40)
[2024-06-30 21:44] VITALS: BP 124/66; TEMP 97; O2SAT 97
[2024-06-30] MEDS: MORPHINE 2 MG/ML 1ML VIAL IV PRN (22:07)
[2024-06-30] MEDS ORDERED: ALBUTEROL 90 MCG/ACT 8GM HFA INHALER INH PRN (22:50)
[2024-06-30] MEDS: QUEtiapine FUMARATE 50MG TAB PO SCH (23:27)
[2024-06-30] MEDS: CALCIUM/VITAMIN D 500 MG TAB PO SCH (23:27)
[2024-06-30] MEDS: OLANZapine 5 MG TAB PO SCH (23:27)
[2024-06-30] MEDS: MIRTAZAPINE 15 MG TAB PO SCH (23:28)
[2024-06-30] MEDS: clonazePAM 0.5 MG TAB PO SCH (23:28)
[2024-07-01] VITALS (10 sets, daily range): BP systolic 103–142; BP diastolic 50–78; TEMP 96.6–97.7; O2SAT 88–99
[2024-07-01] MEDS: LEVOTHYROXINE 112MCG TABLET (0.112MG) PO SCH (05:36)
[2024-07-01 06:23] LABS: HEMATOCRIT 29.8 % (36.0-47.0); HEMOGLOBIN 9.5 g/dl (12.0-15.5); MEAN CORPUSCULAR HEMOGLOBIN 31.6 pg (27.0-33.0); MEAN CORPUSCULAR HGB CONC 31.9 g/dl (32.0-36.5); PLATELET COUNT, AUTOMATED 249 10^3/uL (150-450); RED BLOOD COUNT 3.01 10^6/uL (4.00-5.40); WHITE BLOOD COUNT 7.8 10^3/uL (4.0-10.0)
[2024-07-01 06:47] LABS: ALBUMIN 2.8 G/DL (3.2-5.2); ALKALINE PHOSPHATASE 83 U/L (35-104); ALT/SGPT 16 U/L (7.0-40); AST/SGOT 35 U/L (<34); BILIRUBIN,TOTAL 0.7 MG/DL (0.3-1.2); BLOOD UREA NITROGEN 26 MG/DL (9-23); CALCIUM LEVEL 9.8 MG/DL (8.3-10.6); CARBON DIOXIDE LEVEL 28 MMOL/L (20-31); CHLORIDE LEVEL 110 MMOL/L (98-107); CREATININE FOR GFR 0.69 MG/DL (0.55-1.30); GLOMERULAR FILTRATION RATE > 60.0 (>32); GLUCOSE, FASTING 89 MG/DL (74-106); POTASSIUM SERUM 3.8 MMOL/L (3.5-5.1); SODIUM LEVEL 146 MMOL/L (136-145)
[2024-07-01] MEDS ORDERED: SYMBICORT 80/4.5MCG INHALER 6GM INH SCH (08:00)
[2024-07-01] MEDS: FLUDROCORTISONE ACETATE 0.1 MG TAB PO SCH (08:37)
[2024-07-01] MEDS: FLUoxetine 20MG CAP PO SCH (08:37)
[2024-07-01] MEDS: MIDODRINE 5 MG TAB PO SCH (08:37)
[2024-07-01] MEDS: FERROUS SULFATE 325MG TAB PO SCH (08:37)
[2024-07-01] MEDS: PANTOPRAZOLE 20 MG TAB PO SCH (08:37)
[2024-07-01] MEDS: NS (Normal Saline) 0.9% 1,000 ML IV SCH (08:52)
[2024-07-01] MEDS ORDERED: ASPIRIN 81MG ENTERIC TABLET PO SCH (09:00)
[2024-07-01] MEDS ORDERED: propofoL 200 MG/20 ML VIAL As Ordered ONE (09:53)
[2024-07-01] MEDS ORDERED: fentaNYL 100 MCG/2 ML INJECTION As Ordered ONE (09:53)
[2024-07-01] MEDS ORDERED: LIDOCAINE 2% 100MG/5ML SDV (FOR ANES.) As Ordered ONE (09:53)
[2024-07-02] VITALS: BP 120/52; TEMP 97; O2SAT 97
[2024-07-02 04:00] VITALS: BP 112/48; TEMP 97.2; O2SAT 97
[2024-07-02 07:33] LABS: BASO % 0.1 % (0.0-1.0); EOS % 0.1 % (0.0-3.0); HEMATOCRIT 26.6 % (36.0-47.0); HEMOGLOBIN 8.1 g/dl (12.0-15.5); LYMPH # 1.3 10^3/uL (1.5-5.0); LYMPH % 17.1 % (24.0-44.0); MEAN CORPUSCULAR HEMOGLOBIN 30.7 pg (27.0-33.0); MEAN CORPUSCULAR HGB CONC 30.5 g/dl (32.0-36.5); MEAN CORPUSCULAR VOLUME 100.8 fl (80.0-96.0); MONO # 0.6 10^3/uL (0.0-0.8); MONO % 8.3 % (2.0-8.0); NEUTROPHILS # 5.4 10^3/uL (1.5-8.5); NEUTROPHILS % 72.8 % (36.0-66.0); PLATELET COUNT, AUTOMATED 231 10^3/uL (150-450); RED BLOOD COUNT 2.64 10^6/uL (4.00-5.40); WHITE BLOOD COUNT 7.4 10^3/uL (4.0-10.0)
[2024-07-02 07:58] LABS: BLOOD UREA NITROGEN 25 MG/DL (9-23); CALCIUM LEVEL 8.7 MG/DL (8.3-10.6); CARBON DIOXIDE LEVEL 25 MMOL/L (20-31); CHLORIDE LEVEL 112 MMOL/L (98-107); CREATININE FOR GFR 0.76 MG/DL (0.55-1.30); GLOMERULAR FILTRATION RATE > 60.0 (>32); GLUCOSE, FASTING 80 MG/DL (74-106); POTASSIUM SERUM 3.8 MMOL/L (3.5-5.1); SODIUM LEVEL 145 MMOL/L (136-145)
[2024-07-02 07:59] VITALS: BP 130/58; TEMP 97.2; O2SAT 95
[2024-07-02] MEDS: ENOXAPARIN 40MG/0.4ML SYRINGE (J1650 PER 10MG) SC SCH (08:00)
[2024-07-02] MEDS ORDERED: traMADol 50 MG TAB PO PRN (08:50)
[2024-07-02] MEDS: IBUPROFEN 200MG TAB PO SCH (08:50)
[2024-07-02] MEDS ORDERED: ACET-683 PO (08:52)
[2024-07-02] MEDS: oxyCODONE 5MG TAB PO SCH (09:00)
[2024-07-02] MEDS: ACETAMINOPHEN 500 MG TAB PO ONE (10:15)
[2024-07-02] MEDS: MORPHINE 2 MG/ML 1ML VIAL IV ONE (10:15)
[2024-07-02] MEDS: ACETAMINOPHEN 500 MG TAB PO SCH (10:56)
== END 2024-07-02 12:12 | DRG 522 ==
LOC: M ED 16:18 → EDBD 16:18 → M ED INP 20:14 → M MSPAV 21:29
PROVIDERS: ADMIT Student in an Organized Health Care Education/Training Program; ATTEND General Practice
PROC: 0SRS0J9 Replacement of Left Hip Joint, Femoral Surface with Synthetic Substitute, Cemented, Open Approach (ICD-10-PCS; 2024-06-25)
PROC: 0QS7XZZ Reposition Left Upper Femur, External Approach (ICD-10-PCS; principal; 2024-07-01 10:00)
DX: S72.142A Displaced intertrochanteric fracture of left femur, initial encounter for closed fracture (principal); T84.021A Dislocation of internal left hip prosthesis, initial encounter; I50.32 Chronic diastolic (congestive) heart failure; E87.0 Hyperosmolality and hypernatremia; Y83.1 Surgical operation with implant of artificial internal device as the cause of abnormal reaction of the patient, or of later complication, without mention of misadventure at the time of the procedure; R29.6 Repeated falls; F03.C0 Unspecified dementia, severe, without behavioral disturbance, psychotic disturbance, mood disturbance, and anxiety; I27.81 Cor pulmonale (chronic); F41.9 Anxiety disorder, unspecified; F32.A Depression, unspecified; E03.9 Hypothyroidism, unspecified; J45.909 Unspecified asthma, uncomplicated; G47.33 Obstructive sleep apnea (adult) (pediatric); Z79.82 Long term (current) use of aspirin; Z79.890 Hormone replacement therapy; Z79.899 Other long term (current) drug therapy; Z79.891 Long term (current) use of opiate analgesic; I95.1 Orthostatic hypotension; J44.9 Chronic obstructive pulmonary disease, unspecified; D50.9 Iron deficiency anemia, unspecified; K21.9 Gastro-esophageal reflux disease without esophagitis; M81.0 Age-related osteoporosis without current pathological fracture; F39 Unspecified mood [affective] disorder; W06.XXXA Fall from bed, initial encounter; Z96.642 Presence of left artificial hip joint; R41.1 Anterograde amnesia; H81.10 Benign paroxysmal vertigo, unspecified ear; Y99.8 Other external cause status; Y92.013 Bedroom of single-family (private) house as the place of occurrence of the external cause; Y93.9 Activity, unspecified

== ENCOUNTER → 2024-06-30 | Outpatient (REF) | payer MEDICARE, OTHER, MEDICAID ==
[~2024-06-30] MED LIST changes: +ACET-683 PO; +ACET650T15 PO; +ADVA1AER9 INH; +ALBU10.7 INH; +ASPI81CH33 PO; +ASPI81TA26 PO; +CALC600T18 PO; +CYAN1000VL IM; +DULC10SU2 PR; +ENSULIQ51 PO; +ERGO500029 PO; +FERR1TAB8 PO; +FERR325T3 PO; +LEVO112T2 PO; +MIDO10TA3 PO; +MILKSUS3 PO; +OLAN1TAB16 PO; +PANT20TA51 PO; +PANT20TA6 PO; +Pill Cutter XX; +QUET50TA4 PO
[2024-06-30 08:46] LABS: HEMOGLOBIN 8.5 g/dl (12.0-15.5); MEAN CORPUSCULAR HEMOGLOBIN 31.4 pg (27.0-33.0); MEAN CORPUSCULAR HGB CONC 31.5 g/dl (32.0-36.5); MEAN CORPUSCULAR VOLUME 99.6 fl (80.0-96.0); PLATELET COUNT, AUTOMATED 230 10^3/uL (150-450); RED BLOOD COUNT 2.71 10^6/uL (4.00-5.40); WHITE BLOOD COUNT 7.1 10^3/uL (4.0-10.0)
[2024-06-30 09:10] LABS: BLOOD UREA NITROGEN 27 MG/DL (9-23); CALCIUM LEVEL 9.3 MG/DL (8.3-10.6); CARBON DIOXIDE LEVEL 28 MMOL/L (20-31); CHLORIDE LEVEL 108 MMOL/L (98-107); CREATININE FOR GFR 0.79 MG/DL (0.55-1.30); GLOMERULAR FILTRATION RATE > 60.0 (>32); GLUCOSE, FASTING 95 MG/DL (74-106); POTASSIUM SERUM 3.9 MMOL/L (3.5-5.1); SODIUM LEVEL 143 MMOL/L (136-145)
== END ==
LOC: SKLAB8 07:00
PROVIDERS: ATTEND Internal Medicine
DX: I50.9 Heart failure, unspecified (principal)

== ENCOUNTER → 2024-07-03 | Outpatient (REF) | payer MEDICAID, MEDICARE, OTHER ==
[~2024-07-03] MED LIST changes: +ACET-683 PO; +ASPI81TA26 PO; +BACI1CAP PO; +CALC600T18 PO; +CEPH500T PO; +ENSULIQ51 PO; +ERGO500029 PO; +FERR1TAB8 PO; +PANT20TA51 PO
[2024-07-03 08:57] LABS: BASO % 0.1 % (0.0-1.0); EOS % 0.1 % (0.0-3.0); HEMATOCRIT 26.8 % (36.0-47.0); HEMOGLOBIN 8.6 g/dl (12.0-15.5); LYMPH # 1.2 10^3/uL (1.5-5.0); LYMPH % 17.6 % (24.0-44.0); MEAN CORPUSCULAR HEMOGLOBIN 31.6 pg (27.0-33.0); MEAN CORPUSCULAR HGB CONC 32.1 g/dl (32.0-36.5); MEAN CORPUSCULAR VOLUME 98.5 fl (80.0-96.0); MONO # 0.5 10^3/uL (0.0-0.8); MONO % 6.9 % (2.0-8.0); PLATELET COUNT, AUTOMATED 285 10^3/uL (150-450); RED BLOOD COUNT 2.72 10^6/uL (4.00-5.40); WHITE BLOOD COUNT 6.8 10^3/uL (4.0-10.0)
== END ==
LOC: SKLAB8 06-30 07:00
PROVIDERS: ATTEND Nurse Practitioner Family
DX: R41.82 Altered mental status, unspecified (principal)

== ENCOUNTER 2024-07-11 04:02 | Inpatient (IN) | payer MEDICARE, OTHER, MEDICAID ==
[~2024-07-11] VITALS: Ht 157.5 cm; Wt 63.4 kg
[2024-07-11] VITALS (7 sets, daily range): BP systolic 112–128; BP diastolic 52–61; TEMP 97–97.3; O2SAT 93–99
[~2024-07-11 04:02] MED LIST changes: -BACI1CAP PO; -CEPH500T PO
[2024-07-11 05:22] LABS: HEMATOCRIT 25.1 % (36.0-47.0); HEMOGLOBIN 7.9 g/dl (12.0-15.5); LYMPH # 1.4 10^3/uL (1.5-5.0); LYMPH % 13.7 % (24.0-44.0); MEAN CORPUSCULAR HEMOGLOBIN 31.3 pg (27.0-33.0); MEAN CORPUSCULAR HGB CONC 31.5 g/dl (32.0-36.5); MEAN CORPUSCULAR VOLUME 99.6 fl (80.0-96.0); MONO # 0.7 10^3/uL (0.0-0.8); MONO % 7.1 % (2.0-8.0); NEUTROPHILS # 7.8 10^3/uL (1.5-8.5); NEUTROPHILS % 78.6 % (36.0-66.0); PLATELET COUNT, AUTOMATED 339 10^3/uL (150-450); RED BLOOD COUNT 2.52 10^6/uL (4.00-5.40)
[2024-07-11 05:49] LABS: BLOOD UREA NITROGEN 15 MG/DL (9-23); CALCIUM LEVEL 9.2 MG/DL (8.3-10.6); CARBON DIOXIDE LEVEL 31 MMOL/L (20-31); CHLORIDE LEVEL 108 MMOL/L (98-107); CREATININE FOR GFR 0.76 MG/DL (0.55-1.30); GLOMERULAR FILTRATION RATE > 60.0 (>32); GLUCOSE, FASTING 96 MG/DL (74-106); MAGNESIUM LEVEL 2.1 MG/DL (1.8-2.4); POTASSIUM SERUM 4.3 MMOL/L (3.5-5.1); SODIUM LEVEL 143 MMOL/L (136-145)
[2024-07-11] MEDS ORDERED: MAALOX 30 ML SUSP *UDC PO PRN (06:55)
[2024-07-11] MEDS ORDERED: ACETAMINOPH W/CODEINE #3 TAB UD PO PRN (06:55)
[2024-07-11] MEDS ORDERED: MOM 30ML SUSPENSION UDC PO PRN (06:55)
[2024-07-11] MEDS: DOCUSATE SODIUM 100MG CAPSULE PO SCH (09:00)
[2024-07-11] MEDS: PANTOPRAZOLE 40MG VIAL IV SCH (09:57)
[2024-07-11] MEDS ORDERED: ASPI81CH33 PO (10:05)
[2024-07-11] MEDS ORDERED: ACET-683 PO (10:13)
[2024-07-11] MEDS ORDERED: ACET1TAB55 PO (10:20)
[2024-07-11] MEDS ORDERED: ALBU2.5V10 INH (10:21)
[2024-07-11] MEDS ORDERED: HOME MED LIST COMPLETE! XX SCH (10:25)
[2024-07-11] MEDS ORDERED: fentaNYL 100 MCG/2 ML INJECTION As Ordered ONE (11:06)
[2024-07-11] MEDS ORDERED: ONDANSETRON 4MG 2ML VIAL As Ordered ONE (11:06)
[2024-07-11] MEDS ORDERED: LIDOCAINE 2% 100MG/5ML SDV (FOR ANES.) As Ordered ONE (11:06)
[2024-07-11] MEDS ORDERED: propofoL 200 MG/20 ML VIAL As Ordered ONE (11:06)
[2024-07-11] MEDS ORDERED: oxyCODONE 5MG TAB PO PRN (13:40)
[2024-07-11] MEDS: ACETAMINOPHEN 325 MG TAB PO PRN (14:11)
[2024-07-11 14:16] LABS: IRON (FE) 28 UG/DL (50-170); PERCENT SATURATION 11.1 % (13.2-45.0); TOTAL IRON BINDING CAPACITY 252 UG/DL (250-425)
[2024-07-11 14:19] LABS: VITAMIN B12 LEVEL 386 PG/ML (211-911)
[2024-07-11 14:21] LABS: FOLATE 15.33 NG/ML (>5.4)
[2024-07-11] MEDS: ONDANSETRON 4MG TAB PO PRN (14:34)
[2024-07-11] MEDS ORDERED: PILL CUTTER 1 EACH XX PRN (15:20)
[2024-07-11] MEDS ORDERED: UNRESOLVED CLARIFICATION ENTRY XX SCH (16:00)
[2024-07-11] MEDS: MIDODRINE 5 MG TAB PO SCH (17:02)
[2024-07-11] MEDS: ADVAIR HFA 115/21MCG INHALER INH SCH (19:48)
[2024-07-11] MEDS: ACETAMINOPHEN 500 MG TAB PO SCH (21:31)
[2024-07-11] MEDS: clonazePAM 0.5 MG TAB PO SCH (21:31)
[2024-07-11] MEDS: OLANZapine 5 MG TAB PO SCH (21:31)
[2024-07-11] MEDS: QUEtiapine FUMARATE 50MG TAB PO SCH (21:31)
[2024-07-11] MEDS: MIRTAZAPINE 15 MG TAB PO SCH (21:31)
[2024-07-11] MEDS: ENOXAPARIN 40MG/0.4ML SYRINGE (J1650 PER 10MG) SC SCH (21:32)
[2024-07-12] VITALS (14 sets, daily range): BP systolic 101–137; BP diastolic 48–83; TEMP 97–97.5; O2SAT 95–100
[2024-07-12] MEDS: LEVOTHYROXINE 112MCG TABLET (0.112MG) PO SCH (05:30)
[2024-07-12 08:07] LABS: EOS % 0.1 % (0.0-3.0); HEMATOCRIT 23.2 % (36.0-47.0); HEMOGLOBIN 7.3 g/dl (12.0-15.5); LYMPH # 1.6 10^3/uL (1.5-5.0); LYMPH % 21.1 % (24.0-44.0); MEAN CORPUSCULAR HEMOGLOBIN 31.2 pg (27.0-33.0); MEAN CORPUSCULAR HGB CONC 31.5 g/dl (32.0-36.5); MEAN CORPUSCULAR VOLUME 99.1 fl (80.0-96.0); MONO # 0.5 10^3/uL (0.0-0.8); MONO % 6.9 % (2.0-8.0); NEUTROPHILS # 5.4 10^3/uL (1.5-8.5); NEUTROPHILS % 71.2 % (36.0-66.0); PLATELET COUNT, AUTOMATED 305 10^3/uL (150-450); RED BLOOD COUNT 2.34 10^6/uL (4.00-5.40); WHITE BLOOD COUNT 7.6 10^3/uL (4.0-10.0)
[2024-07-12 08:33] LABS: BLOOD UREA NITROGEN 16 MG/DL (9-23); CALCIUM LEVEL 9.1 MG/DL (8.3-10.6); CARBON DIOXIDE LEVEL 31 MMOL/L (20-31); CHLORIDE LEVEL 108 MMOL/L (98-107); GLOMERULAR FILTRATION RATE > 60.0 (>32); GLUCOSE, FASTING 86 MG/DL (74-106); POTASSIUM SERUM 4.5 MMOL/L (3.5-5.1); SODIUM LEVEL 143 MMOL/L (136-145)
[2024-07-12] MEDS: FERROUS SULFATE 325MG TAB PO SCH (09:49)
[2024-07-12] MEDS: ASPIRIN 81MG CHEW TABLET PO SCH (09:49)
[2024-07-12] MEDS: MIRALAX *UNIT DOSE* 17GM PACKET PO SCH (09:50)
[2024-07-12] MEDS: FLUDROCORTISONE ACETATE 0.1 MG TAB PO SCH (09:50)
[2024-07-12] MEDS: PANTOPRAZOLE 20 MG TAB PO SCH (09:50)
[2024-07-13 04:00] VITALS: BP 155/71; TEMP 97.2; O2SAT 97
[2024-07-13 07:00] LABS: BASO % 0.3 % (0.0-1.0); EOS % 0.1 % (0.0-3.0); HEMATOCRIT 33.9 % (36.0-47.0); LYMPH # 1.5 10^3/uL (1.5-5.0); LYMPH % 19.6 % (24.0-44.0); MEAN CORPUSCULAR HEMOGLOBIN 30.7 pg (27.0-33.0); MEAN CORPUSCULAR HGB CONC 32.7 g/dl (32.0-36.5); MEAN CORPUSCULAR VOLUME 93.9 fl (80.0-96.0); MONO # 0.4 10^3/uL (0.0-0.8); MONO % 5.7 % (2.0-8.0); NEUTROPHILS # 5.6 10^3/uL (1.5-8.5); NEUTROPHILS % 73.4 % (36.0-66.0); PLATELET COUNT, AUTOMATED 305 10^3/uL (150-450); RED BLOOD COUNT 3.61 10^6/uL (4.00-5.40); WHITE BLOOD COUNT 7.7 10^3/uL (4.0-10.0)
[2024-07-13 07:11] LABS: HEMOGLOBIN 11.1 g/dl (12.0-15.5)
[2024-07-13 07:43] LABS: BLOOD UREA NITROGEN 16 MG/DL (9-23); CALCIUM LEVEL 9.4 MG/DL (8.3-10.6); CARBON DIOXIDE LEVEL 29 MMOL/L (20-31); CHLORIDE LEVEL 106 MMOL/L (98-107); CREATININE FOR GFR 0.75 MG/DL (0.55-1.30); GLOMERULAR FILTRATION RATE > 60.0 (>32); GLUCOSE, FASTING 78 MG/DL (74-106); POTASSIUM SERUM 4.3 MMOL/L (3.5-5.1); SODIUM LEVEL 143 MMOL/L (136-145)
[2024-07-13 11:49] VITALS: BP 110/52; TEMP 97.2; O2SAT 95
[2024-07-13 19:40] VITALS: BP 148/68; TEMP 97.2; O2SAT 94
[2024-07-14 05:30] VITALS: BP 128/74; TEMP 97.2; O2SAT 99
== END 2024-07-14 10:35 | DRG 560 ==
LOC: M ED 04:02 → EDBD 04:02 → M ED INP 06:54 → M MS5PR 12:27
PROVIDERS: ADMIT Student in an Organized Health Care Education/Training Program; ATTEND Student in an Organized Health Care Education/Training Program
PROC: 0QS6XZZ Reposition Right Upper Femur, External Approach (ICD-10-PCS; principal; 2024-07-11 11:01)
PROC: 30233N1 Transfusion of Nonautologous Red Blood Cells into Peripheral Vein, Percutaneous Approach (ICD-10-PCS; 2024-07-12)
DX: T84.021A Dislocation of internal left hip prosthesis, initial encounter (principal); F03.93 Unspecified dementia, unspecified severity, with mood disturbance; E03.9 Hypothyroidism, unspecified; I27.81 Cor pulmonale (chronic); J45.909 Unspecified asthma, uncomplicated; M81.0 Age-related osteoporosis without current pathological fracture; G47.33 Obstructive sleep apnea (adult) (pediatric); D50.9 Iron deficiency anemia, unspecified; I95.1 Orthostatic hypotension; F41.9 Anxiety disorder, unspecified; F32.A Depression, unspecified; Y83.1 Surgical operation with implant of artificial internal device as the cause of abnormal reaction of the patient, or of later complication, without mention of misadventure at the time of the procedure; Z96.641 Presence of right artificial hip joint; Z79.890 Hormone replacement therapy; Z79.82 Long term (current) use of aspirin; Z79.899 Other long term (current) drug therapy

== ENCOUNTER 2024-07-16 18:03 | Inpatient (IN) | payer MEDICARE, OTHER, MEDICAID ==
[~2024-07-16] VITALS: Ht 157.5 cm; Wt 54.8 kg
[2024-07-16 18:50] LABS: BASO % 0.1 % (0.0-1.0); EOS # 0.1 10^3/uL (0.0-0.5); EOS % 0.3 % (0.0-3.0); HEMATOCRIT 32.3 % (36.0-47.0); HEMOGLOBIN 10.3 g/dl (12.0-15.5); LYMPH # 1.7 10^3/uL (1.5-5.0); LYMPH % 7.1 % (24.0-44.0); MEAN CORPUSCULAR HEMOGLOBIN 30.2 pg (27.0-33.0); MEAN CORPUSCULAR HGB CONC 31.9 g/dl (32.0-36.5); MEAN CORPUSCULAR VOLUME 94.7 fl (80.0-96.0); MONO # 1.4 10^3/uL (0.0-0.8); MONO % 5.9 % (2.0-8.0); NEUTROPHILS # 20.3 10^3/uL (1.5-8.5); NEUTROPHILS % 85.8 % (36.0-66.0); PLATELET COUNT, AUTOMATED 260 10^3/uL (150-450); RED BLOOD COUNT 3.41 10^6/uL (4.00-5.40); WHITE BLOOD COUNT 23.6 10^3/uL (4.0-10.0)
[2024-07-16 19:01] LABS: INR 1.06; PARTIAL THROMBOPLASTIN TIME 38.8 SECONDS (24.8-34.2); PROTHROMBIN TIME 14.1 SECONDS (12.5-14.5)
[2024-07-16 19:11] LABS: ALBUMIN 2.5 G/DL (3.2-5.2); BILIRUBIN,TOTAL 0.7 MG/DL (0.3-1.2); CALCIUM LEVEL 9.5 MG/DL (8.3-10.6); CREATININE FOR GFR 1.04 MG/DL (0.55-1.30); GLOMERULAR FILTRATION RATE 54.1 (>32); POTASSIUM SERUM 4.1 MMOL/L (3.5-5.1); TOTAL PROTEIN 6.1 G/DL (5.7-8.2)
[2024-07-16] MEDS ORDERED: HOME MED LIST COMPLETE! XX SCH (19:20)
[2024-07-16] MEDS: MORPHINE 2 MG/ML 1ML VIAL IV ONE (20:06)
[2024-07-16 20:49] LABS: KETONE, URINE AUTO RFX NEGATIVE (NEGATIVE); MUCUS, URINE RFX SMALL (NEGATIVE); RBC, URINE AUTO RFX 8 /HPF (0-3); SQUAM EPITHELIAL CELL UR AURFX 4 /HPF (0-6)
[2024-07-16] MEDS: NS (Normal Saline) 0.9% 1,000 ML IV SCH (20:54)
[2024-07-16 21:06] LABS: LEUKOCYTE ESTERASE UR AUTO RFX 3+ (NEGATIVE); NITRITE, URINE AUTO RFX POSITIVE (NEGATIVE); WBC, URINE AUTO RFX 168 /HPF (0-3)
[2024-07-16] MEDS: propofoL 200 MG/20 ML VIAL IV.PROC PRN (21:10)
[2024-07-16] MEDS: cefTRIAXone SOD 1 GM in DEXTROSE 5% (D5W) ADV/MINI-BAG 50 ML IV ONE (22:34)
[2024-07-16] MEDS ORDERED: BISACODYL 10MG SUPP PR PRN (22:45)
[2024-07-16] MEDS ORDERED: MOM 30ML SUSPENSION UDC PO PRN (22:45)
[2024-07-16] MEDS ORDERED: ALBUTEROL SULFATE 2.5MG/0.5ML INH NEB SOLN INH PRN (22:45)
[2024-07-16] MEDS: NS 500 ML IV ONE (23:07)
[2024-07-16] MEDS ORDERED: PILL CUTTER 1 EACH XX PRN (23:30)
[2024-07-16] MEDS: ADVAIR HFA 115/21MCG INHALER INH SCH (23:30)
[2024-07-17] MEDS: clonazePAM 0.5 MG TAB PO SCH (00:04)
[2024-07-17] MEDS: oxyCODONE 5MG TAB PO PRN (00:05)
[2024-07-17] MEDS: ACETAMINOPHEN 325 MG TAB PO SCH (00:05)
[2024-07-17] MEDS: CALCIUM/VITAMIN D 500 MG TAB PO SCH (00:18)
[2024-07-17] MEDS: MIRTAZAPINE 15 MG TAB PO SCH (00:19)
[2024-07-17] MEDS: MORPHINE 2 MG/ML 1ML VIAL IV PRN (05:14)
[2024-07-17 05:32] LABS: BASO % 0.1 % (0.0-1.0); EOS # 0.1 10^3/uL (0.0-0.5); EOS % 0.3 % (0.0-3.0); HEMATOCRIT 29.2 % (36.0-47.0); HEMOGLOBIN 9.3 g/dl (12.0-15.5); LYMPH # 1.9 10^3/uL (1.5-5.0); MEAN CORPUSCULAR HEMOGLOBIN 30.7 pg (27.0-33.0); MEAN CORPUSCULAR HGB CONC 31.8 g/dl (32.0-36.5); MEAN CORPUSCULAR VOLUME 96.4 fl (80.0-96.0); MONO # 0.9 10^3/uL (0.0-0.8); MONO % 5.8 % (2.0-8.0); NEUTROPHILS # 12.6 10^3/uL (1.5-8.5); NEUTROPHILS % 81.1 % (36.0-66.0); PLATELET COUNT, AUTOMATED 228 10^3/uL (150-450); RED BLOOD COUNT 3.03 10^6/uL (4.00-5.40); WHITE BLOOD COUNT 15.5 10^3/uL (4.0-10.0)
[2024-07-17 05:58] LABS: ALBUMIN 2.2 G/DL (3.2-5.2); ALKALINE PHOSPHATASE 86 U/L (35-104); ALT/SGPT 16 U/L (7.0-40); AST/SGOT 24 U/L (<34); BILIRUBIN,TOTAL 0.5 MG/DL (0.3-1.2); BLOOD UREA NITROGEN 30 MG/DL (9-23); CALCIUM LEVEL 8.5 MG/DL (8.3-10.6); CARBON DIOXIDE LEVEL 27 MMOL/L (20-31); CHLORIDE LEVEL 109 MMOL/L (98-107); CREATININE FOR GFR 0.95 MG/DL (0.55-1.30); GLOMERULAR FILTRATION RATE > 60.0 (>32); GLUCOSE, FASTING 82 MG/DL (74-106); POTASSIUM SERUM 3.9 MMOL/L (3.5-5.1); SODIUM LEVEL 140 MMOL/L (136-145); TOTAL PROTEIN 5.1 G/DL (5.7-8.2)
[2024-07-17] MEDS: cefTRIAXone SOD 2 GM in DEXTROSE 5% (D5W) ADV/MINI-BAG 50 ML IV SCH (06:47)
[2024-07-17] MEDS: LEVOTHYROXINE 112MCG TABLET (0.112MG) PO SCH (08:00)
[2024-07-17] MEDS: ASPIRIN 81MG CHEW TABLET PO SCH (08:20)
[2024-07-17] MEDS: MIDODRINE 5 MG TAB PO SCH (09:32)
[2024-07-17] MEDS: FERROUS SULFATE 325MG TAB PO SCH (09:32)
[2024-07-17] MEDS: PANTOPRAZOLE 20 MG TAB PO SCH (09:33)
[2024-07-17] MEDS: FLUDROCORTISONE ACETATE 0.1 MG TAB PO SCH (09:33)
[2024-07-17] MEDS: ENOXAPARIN 40MG/0.4ML SYRINGE (J1650 PER 10MG) SC SCH (09:34)
[2024-07-17] MEDS: QUEtiapine FUMARATE 50MG TAB PO SCH (09:53)
[2024-07-17] MEDS: MIRALAX *UNIT DOSE* 17GM PACKET PO SCH (09:53)
[2024-07-17] MEDS: FLUoxetine 20MG CAP PO SCH (09:53)
[2024-07-17] MEDS ORDERED: IBUPROFEN 800 MG TAB PO PRN (12:10)
[2024-07-17] MEDS: LIDOCAINE 5% (LIDODERM) PATCH TD SCH (12:54)
[2024-07-17] MEDS: ACETAMINOPHEN 500 MG TAB PO SCH (12:55)
[2024-07-17] MEDS: IBUPROFEN 400MG TAB PO PRN (12:56)
[2024-07-17 14:00] VITALS: BP 101/68; TEMP 97.3
[2024-07-17 17:23] VITALS: BP 169/74
[2024-07-17 19:52] VITALS: BP 120/50; TEMP 97.2; O2SAT 96
[2024-07-17] MEDS: OLANZapine 5 MG TAB PO SCH (20:00)
[2024-07-17] MEDS: QUEtiapine FUMARATE 25 MG TAB PO SCH (20:00)
[2024-07-17] MEDS: AMOXICILLIN 875 MG TAB PO SCH (20:00)
[2024-07-18 05:04] VITALS: BP 156/85; TEMP 97.3; O2SAT 94
[2024-07-18 06:58] LABS: HEMATOCRIT 30.2 % (36.0-47.0); HEMOGLOBIN 9.5 g/dl (12.0-15.5); MEAN CORPUSCULAR HGB CONC 31.5 g/dl (32.0-36.5); MEAN CORPUSCULAR VOLUME 95.3 fl (80.0-96.0); PLATELET COUNT, AUTOMATED 242 10^3/uL (150-450); RED BLOOD COUNT 3.17 10^6/uL (4.00-5.40); WHITE BLOOD COUNT 7.8 10^3/uL (4.0-10.0)
[2024-07-18 07:22] LABS: BLOOD UREA NITROGEN 21 MG/DL (9-23); CALCIUM LEVEL 9.1 MG/DL (8.3-10.6); CARBON DIOXIDE LEVEL 28 MMOL/L (20-31); CHLORIDE LEVEL 108 MMOL/L (98-107); CREATININE FOR GFR 0.79 MG/DL (0.55-1.30); GLOMERULAR FILTRATION RATE > 60.0 (>32); GLUCOSE, FASTING 78 MG/DL (74-106); SODIUM LEVEL 144 MMOL/L (136-145)
[2024-07-18 12:00] VITALS: BP 154/83; TEMP 97.3
[2024-07-18] MEDS: FUROSEMIDE 40MG/4ML VIAL IV ONE (12:36)
[2024-07-18 13:35] VITALS: BP 143/68; TEMP 97.3; O2SAT 96
[2024-07-18 16:43] VITALS: BP 142/70
[2024-07-18 18:46] LABS: BLOOD UREA NITROGEN 19 MG/DL (9-23); CALCIUM LEVEL 9.6 MG/DL (8.3-10.6); CARBON DIOXIDE LEVEL 29 MMOL/L (20-31); CHLORIDE LEVEL 105 MMOL/L (98-107); CREATININE FOR GFR 0.78 MG/DL (0.55-1.30); GLOMERULAR FILTRATION RATE > 60.0 (>32); GLUCOSE, FASTING 109 MG/DL (74-106); MAGNESIUM LEVEL 1.9 MG/DL (1.8-2.4); POTASSIUM SERUM 3.4 MMOL/L (3.5-5.1); SODIUM LEVEL 144 MMOL/L (136-145)
[2024-07-18 19:30] VITALS: BP 121/51; TEMP 97.2; O2SAT 97
[2024-07-18] MEDS: POTASSIUM CHLORIDE 10MEQ SR TABLET PO ONE (23:06)
[2024-07-19 05:05] VITALS: BP 142/71; TEMP 97.2; O2SAT 96
[2024-07-19 05:55] LABS: HEMATOCRIT 32.2 % (36.0-47.0); HEMOGLOBIN 10.3 g/dl (12.0-15.5); MEAN CORPUSCULAR HEMOGLOBIN 30.1 pg (27.0-33.0); MEAN CORPUSCULAR VOLUME 94.2 fl (80.0-96.0); PLATELET COUNT, AUTOMATED 272 10^3/uL (150-450); RED BLOOD COUNT 3.42 10^6/uL (4.00-5.40); WHITE BLOOD COUNT 5.4 10^3/uL (4.0-10.0)
[2024-07-19] MEDS ORDERED: FUROSEMIDE 40MG/4ML VIAL IV SCH (06:00)
[2024-07-19 06:27] LABS: BLOOD UREA NITROGEN 20 MG/DL (9-23); CARBON DIOXIDE LEVEL 29 MMOL/L (20-31); CHLORIDE LEVEL 108 MMOL/L (98-107); CREATININE FOR GFR 0.74 MG/DL (0.55-1.30); GLOMERULAR FILTRATION RATE > 60.0 (>32); GLUCOSE, FASTING 81 MG/DL (74-106); POTASSIUM SERUM 4.2 MMOL/L (3.5-5.1); SODIUM LEVEL 146 MMOL/L (136-145)
[2024-07-19] MEDS: FUROSEMIDE 40MG/4ML VIAL IV SCH (08:36)
[2024-07-19] MEDS ORDERED: IBUPROFEN 800 MG TAB PO PRN (10:50)
[2024-07-19] MEDS: IBUPROFEN 400MG TAB PO PRN (11:18)
[2024-07-19 12:28] VITALS: BP 138/71; TEMP 96.6; O2SAT 98
[2024-07-19 20:00] VITALS: BP 148/76; TEMP 97.2; O2SAT 94
[2024-07-20 04:00] VITALS: BP 152/71; TEMP 96.8; O2SAT 95
[2024-07-20 08:42] VITALS: BP 150/72
[2024-07-20 09:07] LABS: BLOOD UREA NITROGEN 24 MG/DL (9-23); CALCIUM LEVEL 9.5 MG/DL (8.3-10.6); CARBON DIOXIDE LEVEL 31 MMOL/L (20-31); CHLORIDE LEVEL 108 MMOL/L (98-107); CREATININE FOR GFR 0.77 MG/DL (0.55-1.30); GLOMERULAR FILTRATION RATE > 60.0 (>32); GLUCOSE, FASTING 79 MG/DL (74-106); POTASSIUM SERUM 4.3 MMOL/L (3.5-5.1); SODIUM LEVEL 145 MMOL/L (136-145)
[2024-07-20 12:00] VITALS: BP 152/72; TEMP 97.2; O2SAT 97
[2024-07-20] MEDS: oxyCODONE 5MG TAB PO PRN (14:40)
[2024-07-20 20:15] VITALS: BP 111/60; TEMP 96.6; O2SAT 99
[2024-07-21 03:48] VITALS: BP 136/61; TEMP 97; O2SAT 97
[2024-07-21 08:27] VITALS: BP 134/60
[2024-07-21 11:50] VITALS: BP 107/51; TEMP 97; O2SAT 97
[2024-07-21 16:12] VITALS: BP 149/76
[2024-07-21 17:21] LABS: BLOOD UREA NITROGEN 29 MG/DL (9-23); CALCIUM LEVEL 9.5 MG/DL (8.3-10.6); CARBON DIOXIDE LEVEL 29 MMOL/L (20-31); CHLORIDE LEVEL 107 MMOL/L (98-107); CREATININE FOR GFR 0.76 MG/DL (0.55-1.30); GLOMERULAR FILTRATION RATE > 60.0 (>32); GLUCOSE, FASTING 88 MG/DL (74-106); POTASSIUM SERUM 4.6 MMOL/L (3.5-5.1); SODIUM LEVEL 140 MMOL/L (136-145)
[2024-07-21 20:37] VITALS: BP 154/76; TEMP 97.5; O2SAT 97
[2024-07-22 03:30] VITALS: BP 126/59; TEMP 97.2; O2SAT 97
[2024-07-22 12:00] VITALS: BP 138/65; TEMP 96.8; O2SAT 98
[2024-07-22 16:29] VITALS: BP 150/60
[2024-07-22] MEDS: IBUPROFEN 200MG TAB PO PRN (17:53)
[2024-07-22 21:36] VITALS: BP 129/65; TEMP 97.8; O2SAT 98
[2024-07-23 04:33] VITALS: BP 166/62; TEMP 97.7; O2SAT 96
[2024-07-23 11:32] VITALS: BP 128/57; TEMP 97; O2SAT 97
[2024-07-23 16:52] VITALS: BP 115/49
[2024-07-23 20:16] VITALS: BP 143/61; TEMP 97.2; O2SAT 97
[2024-07-24 04:19] VITALS: BP 125/66; TEMP 97.2; O2SAT 96
[2024-07-24 06:10] LABS: BASO % 0.1 % (0.0-1.0); EOS % 0.1 % (0.0-3.0); HEMATOCRIT 31.6 % (36.0-47.0); HEMOGLOBIN 9.9 g/dl (12.0-15.5); LYMPH # 2.2 10^3/uL (1.5-5.0); LYMPH % 30.9 % (24.0-44.0); MEAN CORPUSCULAR HEMOGLOBIN 30.3 pg (27.0-33.0); MEAN CORPUSCULAR HGB CONC 31.3 g/dl (32.0-36.5); MEAN CORPUSCULAR VOLUME 96.6 fl (80.0-96.0); MONO # 0.6 10^3/uL (0.0-0.8); MONO % 8.3 % (2.0-8.0); NEUTROPHILS % 57.4 % (36.0-66.0); PLATELET COUNT, AUTOMATED 282 10^3/uL (150-450); RED BLOOD COUNT 3.27 10^6/uL (4.00-5.40)
[2024-07-24 06:27] LABS: BLOOD UREA NITROGEN 18 MG/DL (9-23); CALCIUM LEVEL 9.5 MG/DL (8.3-10.6); CARBON DIOXIDE LEVEL 29 MMOL/L (20-31); CHLORIDE LEVEL 106 MMOL/L (98-107); CREATININE FOR GFR 0.67 MG/DL (0.55-1.30); GLOMERULAR FILTRATION RATE > 60.0 (>32); GLUCOSE, FASTING 79 MG/DL (74-106); POTASSIUM SERUM 4.4 MMOL/L (3.5-5.1); SODIUM LEVEL 141 MMOL/L (136-145)
[2024-07-24 12:00] VITALS: BP 118/57; TEMP 96.7; O2SAT 98
[2024-07-24 19:46] VITALS: BP 120/57; TEMP 96.8; O2SAT 96
[2024-07-25 03:45] VITALS: BP 100/56; TEMP 97.2; O2SAT 96
[2024-07-25 12:00] VITALS: BP 108/70; TEMP 96.8; O2SAT 99
[2024-07-25 16:10] VITALS: BP 104/58
[2024-07-25 19:25] VITALS: BP 128/62; TEMP 97.2; O2SAT 98
[2024-07-26 03:20] VITALS: BP 103/56; TEMP 96.8; O2SAT 98
[2024-07-26 09:17] VITALS: BP 86/47
[2024-07-26] MEDS: NS (Normal Saline) 0.9% 1,000 ML IV ONE (09:31)
[2024-07-26 11:22] VITALS: BP 132/57
[2024-07-26 12:00] VITALS: BP 130/58; TEMP 97.7; O2SAT 97
[2024-07-26 16:46] VITALS: BP 129/56
[2024-07-26 20:00] VITALS: BP 121/56; TEMP 97; O2SAT 97
[2024-07-27 04:00] VITALS: BP 117/57; TEMP 96.8; O2SAT 96
[2024-07-27 08:51] VITALS: BP 134/95
[2024-07-27 11:57] VITALS: BP 100/50
[2024-07-27 12:00] VITALS: BP 122/76; TEMP 97.3; O2SAT 97
[2024-07-27 15:29] VITALS: BP 90/41
[2024-07-27 20:00] VITALS: BP 134/57; TEMP 97.2; O2SAT 95
[2024-07-28 04:00] VITALS: BP 135/58; TEMP 96.8; O2SAT 98
[2024-07-28 07:24] LABS: BLOOD UREA NITROGEN 21 MG/DL (9-23); CALCIUM LEVEL 9.4 MG/DL (8.3-10.6); CARBON DIOXIDE LEVEL 29 MMOL/L (20-31); CHLORIDE LEVEL 108 MMOL/L (98-107); CREATININE FOR GFR 0.77 MG/DL (0.55-1.30); GLOMERULAR FILTRATION RATE > 60.0 (>32); GLUCOSE, FASTING 81 MG/DL (74-106); POTASSIUM SERUM 4.3 MMOL/L (3.5-5.1); SODIUM LEVEL 142 MMOL/L (136-145)
[2024-07-28 12:00] VITALS: BP 122/49; TEMP 97.2; O2SAT 97
[2024-07-29 06:33] LABS: BLOOD UREA NITROGEN 17 MG/DL (9-23); CALCIUM LEVEL 9.6 MG/DL (8.3-10.6); CARBON DIOXIDE LEVEL 28 MMOL/L (20-31); CHLORIDE LEVEL 109 MMOL/L (98-107); CREATININE FOR GFR 0.67 MG/DL (0.55-1.30); GLOMERULAR FILTRATION RATE > 60.0 (>32); GLUCOSE, FASTING 76 MG/DL (74-106); POTASSIUM SERUM 4.3 MMOL/L (3.5-5.1); SODIUM LEVEL 143 MMOL/L (136-145)
[2024-07-29 09:21] VITALS: BP 90/50
[2024-07-29 12:03] VITALS: BP 103/48; TEMP 96.8; O2SAT 98
[2024-07-29 16:56] VITALS: BP 165/72
[2024-07-30 05:03] VITALS: BP 112/52; TEMP 96.8; O2SAT 99
[2024-07-30 06:22] LABS: BLOOD UREA NITROGEN 16 MG/DL (9-23); CALCIUM LEVEL 9.8 MG/DL (8.3-10.6); CARBON DIOXIDE LEVEL 31 MMOL/L (20-31); CHLORIDE LEVEL 105 MMOL/L (98-107); CREATININE FOR GFR 0.78 MG/DL (0.55-1.30); GLOMERULAR FILTRATION RATE > 60.0 (>32); GLUCOSE, FASTING 85 MG/DL (74-106); POTASSIUM SERUM 4.2 MMOL/L (3.5-5.1); SODIUM LEVEL 142 MMOL/L (136-145)
[2024-07-30 13:24] VITALS: BP 107/52
[2024-07-30 16:56] VITALS: BP 133/66
[2024-07-30 19:49] VITALS: BP 136/62; TEMP 97; O2SAT 99
[2024-07-31] VITALS (10 sets, daily range): BP systolic 86–111; BP diastolic 40–62; TEMP 93.4–98.1; O2SAT 96–98
[2024-07-31 06:03] LABS: BLOOD UREA NITROGEN 18 MG/DL (9-23); CALCIUM LEVEL 9.8 MG/DL (8.3-10.6); CARBON DIOXIDE LEVEL 29 MMOL/L (20-31); CHLORIDE LEVEL 110 MMOL/L (98-107); GLOMERULAR FILTRATION RATE > 60.0 (>32); GLUCOSE, FASTING 83 MG/DL (74-106); MAGNESIUM LEVEL 2.1 MG/DL (1.8-2.4); POTASSIUM SERUM 4.4 MMOL/L (3.5-5.1); SODIUM LEVEL 142 MMOL/L (136-145)
[2024-07-31 07:39] LABS: HEMATOCRIT 30.2 % (36.0-47.0); HEMOGLOBIN 9.5 g/dl (12.0-15.5); MEAN CORPUSCULAR HEMOGLOBIN 30.9 pg (27.0-33.0); MEAN CORPUSCULAR HGB CONC 31.5 g/dl (32.0-36.5); MEAN CORPUSCULAR VOLUME 98.4 fl (80.0-96.0); PLATELET COUNT, AUTOMATED 325 10^3/uL (150-450); RED BLOOD COUNT 3.07 10^6/uL (4.00-5.40)
[2024-07-31] MEDS ORDERED: propofoL 200 MG/20 ML VIAL As Ordered ONE (10:53)
[2024-07-31] MEDS ORDERED: LIDOCAINE 2% 100MG/5ML SDV (FOR ANES.) As Ordered ONE (10:53)
[2024-07-31] MEDS ORDERED: ROCURONIUM BROMIDE 50MG/5ML VIAL As Ordered ONE (10:53)
[2024-07-31] MEDS ORDERED: fentaNYL 100 MCG/2 ML INJECTION As Ordered ONE (10:54)
[2024-07-31] MEDS ORDERED: MIDAZOLAM INJ 2MG/2ML VIAL As Ordered ONE (10:54)
[2024-07-31] MEDS: ceFAZolin 2 GM/D5W 50 ML IV BAG As Ordered ONE (13:00)
[2024-07-31] MEDS: TRANEXAMIC ACID 100 MG/ML 10ML VIAL As Ordered ONE (13:15)
[2024-07-31] MEDS ORDERED: ACETAMINOPHEN 1000MG/100ML IV BAG As Ordered ONE (14:03)
[2024-07-31] MEDS ORDERED: ONDANSETRON 4MG 2ML VIAL As Ordered ONE (14:05)
[2024-07-31] MEDS ORDERED: SUGAMMADEX SODIUM 500 MG/5 ML VIAL (BRIDION) As Ordered ONE (14:15)
[2024-07-31] MEDS: VANCOMYCIN 1000MG/20ML VIAL As Ordered ONE (14:44)
[2024-07-31] MEDS: BUPivacaine LIPOSOME/PF 266MG 20ML VIAL (13.3MG/ML)(EXPAREL) As Ordered ONE (14:46)
[2024-07-31] MEDS ORDERED: HYDROMORPHONE HCL 0.5 MG/ 0.5 ML SYRINGE IV PRN (15:20)
[2024-07-31] MEDS: NS (Normal Saline) 0.9% 1,000 ML IV SCH (15:20)
[2024-07-31] MEDS ORDERED: oxyCODONE 5MG TAB PO PRN (15:20)
[2024-07-31] MEDS ORDERED: fentaNYL 100 MCG/2 ML INJECTION IV PRN (15:20)
[2024-07-31] MEDS ORDERED: ONDANSETRON 4MG 2ML VIAL IV PRN (15:20)
[2024-07-31] MEDS: IBUPROFEN 400MG TAB PO PRN (17:29)
[2024-07-31] MEDS: ceFAZolin SOD 2 GM in IV 1 EA IV SCH (21:06)
[2024-07-31] MEDS: DOCUSATE SODIUM 100MG CAPSULE PO SCH (21:06)
[2024-07-31] MEDS: LR 500 ML IV ONE (23:10)
[2024-08-01] VITALS (21 sets, daily range): BP systolic 80–124; BP diastolic 40–90; TEMP 97.9–99.3; O2SAT 95–100
[2024-08-01 06:10] LABS: HEMATOCRIT 25.1 % (36.0-47.0); HEMOGLOBIN 7.8 g/dl (12.0-15.5); MEAN CORPUSCULAR HEMOGLOBIN 30.2 pg (27.0-33.0); MEAN CORPUSCULAR HGB CONC 31.1 g/dl (32.0-36.5); MEAN CORPUSCULAR VOLUME 97.3 fl (80.0-96.0); PLATELET COUNT, AUTOMATED 286 10^3/uL (150-450); RED BLOOD COUNT 2.58 10^6/uL (4.00-5.40); WHITE BLOOD COUNT 10.2 10^3/uL (4.0-10.0)
[2024-08-01 06:44] LABS: ALBUMIN 2.5 G/DL (3.2-5.2); ALKALINE PHOSPHATASE 93 U/L (35-104); ALT/SGPT 10 U/L (7.0-40); AST/SGOT 22 U/L (<34); BILIRUBIN,TOTAL 0.2 MG/DL (0.3-1.2); BLOOD UREA NITROGEN 24 MG/DL (9-23); CARBON DIOXIDE LEVEL 27 MMOL/L (20-31); CHLORIDE LEVEL 104 MMOL/L (98-107); CREATININE FOR GFR 0.94 MG/DL (0.55-1.30); GLOMERULAR FILTRATION RATE > 60.0 (>32); GLUCOSE, FASTING 112 MG/DL (74-106); MAGNESIUM LEVEL 1.9 MG/DL (1.8-2.4); POTASSIUM SERUM 4.6 MMOL/L (3.5-5.1); SODIUM LEVEL 141 MMOL/L (136-145); TOTAL PROTEIN 5.5 G/DL (5.7-8.2)
[2024-08-01] MEDS: ASCORBIC ACID 500 MG TAB PO SCH (09:49)
[2024-08-01] MEDS: LR 1,000 ML IV ONE (09:50)
[2024-08-01 11:52] LABS: HEMOGLOBIN 7.3 g/dl (12.0-15.5); MEAN CORPUSCULAR HEMOGLOBIN 31.2 pg (27.0-33.0); MEAN CORPUSCULAR HGB CONC 31.7 g/dl (32.0-36.5); MEAN CORPUSCULAR VOLUME 98.3 fl (80.0-96.0); PLATELET COUNT, AUTOMATED 261 10^3/uL (150-450); RED BLOOD COUNT 2.34 10^6/uL (4.00-5.40); WHITE BLOOD COUNT 10.9 10^3/uL (4.0-10.0)
[2024-08-01 19:08] LABS: HEMATOCRIT 26.3 % (36.0-47.0); HEMOGLOBIN 8.5 g/dl (12.0-15.5); MEAN CORPUSCULAR HGB CONC 32.3 g/dl (32.0-36.5); PLATELET COUNT, AUTOMATED 286 10^3/uL (150-450); RED BLOOD COUNT 2.74 10^6/uL (4.00-5.40); WHITE BLOOD COUNT 8.3 10^3/uL (4.0-10.0)
[2024-08-02] VITALS (7 sets, daily range): BP systolic 97–132; BP diastolic 46–64; TEMP 97.7–98.8; O2SAT 94–97
[2024-08-02 06:17] LABS: HEMATOCRIT 25.8 % (36.0-47.0); HEMOGLOBIN 8.3 g/dl (12.0-15.5); MEAN CORPUSCULAR HEMOGLOBIN 30.3 pg (27.0-33.0); MEAN CORPUSCULAR HGB CONC 32.2 g/dl (32.0-36.5); MEAN CORPUSCULAR VOLUME 94.2 fl (80.0-96.0); PLATELET COUNT, AUTOMATED 273 10^3/uL (150-450); RED BLOOD COUNT 2.74 10^6/uL (4.00-5.40); WHITE BLOOD COUNT 8.4 10^3/uL (4.0-10.0)
[2024-08-02 06:48] LABS: ALBUMIN 2.5 G/DL (3.2-5.2); ALKALINE PHOSPHATASE 91 U/L (35-104); ALT/SGPT 10 U/L (7.0-40); AST/SGOT 23 U/L (<34); BILIRUBIN,TOTAL 0.7 MG/DL (0.3-1.2); BLOOD UREA NITROGEN 19 MG/DL (9-23); CALCIUM LEVEL 9.3 MG/DL (8.3-10.6); CARBON DIOXIDE LEVEL 28 MMOL/L (20-31); CHLORIDE LEVEL 109 MMOL/L (98-107); CREATININE FOR GFR 0.76 MG/DL (0.55-1.30); GLOMERULAR FILTRATION RATE > 60.0 (>32); GLUCOSE, FASTING 85 MG/DL (74-106); MAGNESIUM LEVEL 1.8 MG/DL (1.8-2.4); POTASSIUM SERUM 4.8 MMOL/L (3.5-5.1); SODIUM LEVEL 142 MMOL/L (136-145); TOTAL PROTEIN 5.5 G/DL (5.7-8.2)
[2024-08-02] MEDS: CEFDINIR 300 MG CAP (OMNICEF) PO SCH (08:52)
[2024-08-02] MEDS: SENNA 8.6 MG TAB (SENOKOT) PO PRN (08:52)
[2024-08-02] MEDS ORDERED: ENOXAPARIN 40MG/0.4ML SYRINGE (J1650 PER 10MG) SC SCH (09:00)
[2024-08-02 11:55] LABS: ERYTHROCYTE SEDIMENTATION RATE 25 mm/hr (0-30)
[2024-08-03 03:18] VITALS: BP 113/55; TEMP 97.3; O2SAT 97
[2024-08-03 06:14] LABS: HEMATOCRIT 24.6 % (36.0-47.0); HEMOGLOBIN 7.8 g/dl (12.0-15.5); MEAN CORPUSCULAR HEMOGLOBIN 30.4 pg (27.0-33.0); MEAN CORPUSCULAR HGB CONC 31.7 g/dl (32.0-36.5); MEAN CORPUSCULAR VOLUME 95.7 fl (80.0-96.0); PLATELET COUNT, AUTOMATED 242 10^3/uL (150-450); RED BLOOD COUNT 2.57 10^6/uL (4.00-5.40); WHITE BLOOD COUNT 6.8 10^3/uL (4.0-10.0)
[2024-08-03 06:34] LABS: ALBUMIN 2.3 G/DL (3.2-5.2); ALKALINE PHOSPHATASE 90 U/L (35-104); ALT/SGPT < 9 U/L (7.0-40); AST/SGOT 13 U/L (<34); BILIRUBIN,TOTAL 0.5 MG/DL (0.3-1.2); BLOOD UREA NITROGEN 14 MG/DL (9-23); CARBON DIOXIDE LEVEL 30 MMOL/L (20-31); CHLORIDE LEVEL 105 MMOL/L (98-107); CREATININE FOR GFR 0.72 MG/DL (0.55-1.30); GLOMERULAR FILTRATION RATE > 60.0 (>32); GLUCOSE, FASTING 80 MG/DL (74-106); SODIUM LEVEL 142 MMOL/L (136-145); TOTAL PROTEIN 5.3 G/DL (5.7-8.2)
[2024-08-03] MEDS ORDERED: SLF 3 ML SYR IV PRN (07:35)
[2024-08-03 08:41] VITALS: BP 108/54
[2024-08-03 12:00] VITALS: BP 120/70; TEMP 97.3; O2SAT 96
[2024-08-03] MEDS: MOM 30ML SUSPENSION UDC PO SCH (13:23)
[2024-08-03] MEDS: SLF 3 ML SYR IV SCH (13:24)
[2024-08-03] MEDS ORDERED: ceFAZolin SOD 1 GM in DEXTROSE 5% (D5W) ADV/MINI-BAG 50 ML IV SCH (14:00)
[2024-08-03] MEDS: ENOXAPARIN 40MG/0.4ML SYRINGE (J1650 PER 10MG) SC SCH (15:22)
[2024-08-03] MEDS: ceFAZolin SOD 2 GM in IV 1 EA IV SCH (17:38)
[2024-08-03 20:29] VITALS: BP 129/55; TEMP 97.3; O2SAT 97
[2024-08-04 03:42] VITALS: BP 127/57; TEMP 97.2; O2SAT 96
[2024-08-04 06:14] LABS: HEMATOCRIT 26.7 % (36.0-47.0); HEMOGLOBIN 8.3 g/dl (12.0-15.5); MEAN CORPUSCULAR HGB CONC 31.1 g/dl (32.0-36.5); MEAN CORPUSCULAR VOLUME 96.4 fl (80.0-96.0); PLATELET COUNT, AUTOMATED 260 10^3/uL (150-450); RED BLOOD COUNT 2.77 10^6/uL (4.00-5.40); WHITE BLOOD COUNT 5.9 10^3/uL (4.0-10.0)
[2024-08-04 06:38] LABS: BLOOD UREA NITROGEN 16 MG/DL (9-23); CALCIUM LEVEL 8.8 MG/DL (8.3-10.6); CARBON DIOXIDE LEVEL 29 MMOL/L (20-31); CHLORIDE LEVEL 108 MMOL/L (98-107); CREATININE FOR GFR 0.71 MG/DL (0.55-1.30); GLOMERULAR FILTRATION RATE > 60.0 (>32); GLUCOSE, FASTING 84 MG/DL (74-106); SODIUM LEVEL 143 MMOL/L (136-145)
[2024-08-04 12:13] VITALS: BP 117/55; TEMP 97.2; O2SAT 95
[2024-08-04] MEDS: ceFAZolin SOD 2 GM in IV 1 EA IV SCH (13:40)
[2024-08-04 14:00] VITALS: BP 117/55
[2024-08-04 16:34] VITALS: BP 164/82
[2024-08-04 20:29] VITALS: BP 119/55; TEMP 97.5; O2SAT 94
[2024-08-05 03:44] VITALS: BP 121/56; TEMP 97.2; O2SAT 98
[2024-08-05 06:03] LABS: HEMATOCRIT 26.4 % (36.0-47.0); HEMOGLOBIN 8.4 g/dl (12.0-15.5); MEAN CORPUSCULAR HEMOGLOBIN 30.5 pg (27.0-33.0); MEAN CORPUSCULAR HGB CONC 31.8 g/dl (32.0-36.5); PLATELET COUNT, AUTOMATED 243 10^3/uL (150-450); RED BLOOD COUNT 2.75 10^6/uL (4.00-5.40); WHITE BLOOD COUNT 5.8 10^3/uL (4.0-10.0)
[2024-08-05 06:26] LABS: BLOOD UREA NITROGEN 13 MG/DL (9-23); CARBON DIOXIDE LEVEL 28 MMOL/L (20-31); CHLORIDE LEVEL 104 MMOL/L (98-107); GLOMERULAR FILTRATION RATE > 60.0 (>32); GLUCOSE, FASTING 84 MG/DL (74-106); POTASSIUM SERUM 4.2 MMOL/L (3.5-5.1); SODIUM LEVEL 142 MMOL/L (136-145)
[2024-08-05] MEDS ORDERED: OMEPRAZOLE 20MG CAP PO SCH (09:00)
[2024-08-05] MEDS: OMEPRAZOLE/SODIUM BICARB 20-840MG 10ML ORAL SYRINGE GT SCH (09:00)
[2024-08-05 09:32] VITALS: BP 104/48
[2024-08-05 10:26] LABS: VENOUS BASE EXCESS 1.7 (-2.0-2.0); VENOUS HCO3 26.3 MMOL/L (23.0-27.0); VENOUS PARTIAL PRESSURE CO2 41.2 mmHg (38.0-50.0); VENOUS PARTIAL PRESSURE O2 144.4 mmHg (30.0-50.0); VENOUS PH 7.423 UNITS (7.330-7.430); VENOUS TOTAL CO2 27.6 MMOL/L (24.0-28.0)
[2024-08-05 12:06] VITALS: BP 108/49; TEMP 97.3; O2SAT 98
[2024-08-05 16:06] VITALS: BP 147/69
[2024-08-05 20:00] VITALS: BP 124/60; TEMP 97.3; O2SAT 98
[2024-08-06 04:00] VITALS: BP 122/59; TEMP 97.3; O2SAT 95
[2024-08-06 06:31] LABS: HEMATOCRIT 29.1 % (36.0-47.0); HEMOGLOBIN 9.2 g/dl (12.0-15.5); MEAN CORPUSCULAR HEMOGLOBIN 30.6 pg (27.0-33.0); MEAN CORPUSCULAR HGB CONC 31.6 g/dl (32.0-36.5); MEAN CORPUSCULAR VOLUME 96.7 fl (80.0-96.0); PLATELET COUNT, AUTOMATED 261 10^3/uL (150-450); RED BLOOD COUNT 3.01 10^6/uL (4.00-5.40); WHITE BLOOD COUNT 5.1 10^3/uL (4.0-10.0)
[2024-08-06 06:54] LABS: BLOOD UREA NITROGEN 14 MG/DL (9-23); CALCIUM LEVEL 9.5 MG/DL (8.3-10.6); CARBON DIOXIDE LEVEL 30 MMOL/L (20-31); CHLORIDE LEVEL 107 MMOL/L (98-107); CREATININE FOR GFR 0.73 MG/DL (0.55-1.30); GLOMERULAR FILTRATION RATE > 60.0 (>32); GLUCOSE, FASTING 78 MG/DL (74-106); POTASSIUM SERUM 4.5 MMOL/L (3.5-5.1); SODIUM LEVEL 141 MMOL/L (136-145)
[2024-08-06 09:36] VITALS: BP 96/54
[2024-08-06 12:00] VITALS: BP 91/52; TEMP 97.2; O2SAT 97
[2024-08-06 16:32] VITALS: BP 94/51
[2024-08-06 19:29] LABS: C REACTIVE PROTEIN QUANTITATIV 1.43 MG/DL (<1.0)
[2024-08-06 20:17] VITALS: BP 96/50; TEMP 96.8; O2SAT 98
[2024-08-06] MEDS: DOCUSATE SOD LIQ 100MG/10ML UDC PO SCH (21:24)
[2024-08-06] MEDS: CEPHALEXIN 500 MG CAP PO SCH (21:24)
[2024-08-07 03:06] VITALS: BP 123/65; TEMP 97.5; O2SAT 98
[2024-08-07 05:48] LABS: HEMATOCRIT 29.3 % (36.0-47.0); HEMOGLOBIN 9.1 g/dl (12.0-15.5); MEAN CORPUSCULAR HEMOGLOBIN 30.4 pg (27.0-33.0); MEAN CORPUSCULAR HGB CONC 31.1 g/dl (32.0-36.5); PLATELET COUNT, AUTOMATED 242 10^3/uL (150-450); RED BLOOD COUNT 2.99 10^6/uL (4.00-5.40); WHITE BLOOD COUNT 5.4 10^3/uL (4.0-10.0)
[2024-08-07 06:12] LABS: BLOOD UREA NITROGEN 15 MG/DL (9-23); CARBON DIOXIDE LEVEL 28 MMOL/L (20-31); CHLORIDE LEVEL 104 MMOL/L (98-107); CREATININE FOR GFR 0.71 MG/DL (0.55-1.30); GLOMERULAR FILTRATION RATE > 60.0 (>32); GLUCOSE, FASTING 73 MG/DL (74-106); POTASSIUM SERUM 4.4 MMOL/L (3.5-5.1); SODIUM LEVEL 141 MMOL/L (136-145)
[2024-08-07 08:00] VITALS: BP 116/61; TEMP 97.2; O2SAT 99
[2024-08-07 12:30] VITALS: BP 101/54; TEMP 97; O2SAT 100
[2024-08-07 15:26] VITALS: BP 140/64
[2024-08-07 16:15] LABS: C REACTIVE PROTEIN QUANTITATIV 0.72 MG/DL (<1.0)
[2024-08-07 16:50] LABS: ERYTHROCYTE SEDIMENTATION RATE 24 mm/hr (0-30)
[2024-08-07 20:37] VITALS: BP 136/64; TEMP 97.5; O2SAT 100
[2024-08-07] MEDS: ceFAZolin SOD 2 GM in IV 1 EA IV SCH (21:44)
[2024-08-08 03:18] VITALS: BP 138/63; TEMP 97.3; O2SAT 98
[2024-08-08 06:12] LABS: HEMATOCRIT 30.1 % (36.0-47.0); HEMOGLOBIN 9.5 g/dl (12.0-15.5); MEAN CORPUSCULAR HEMOGLOBIN 30.6 pg (27.0-33.0); MEAN CORPUSCULAR HGB CONC 31.6 g/dl (32.0-36.5); MEAN CORPUSCULAR VOLUME 97.1 fl (80.0-96.0); PLATELET COUNT, AUTOMATED 223 10^3/uL (150-450); WHITE BLOOD COUNT 4.6 10^3/uL (4.0-10.0)
[2024-08-08 06:31] LABS: BLOOD UREA NITROGEN 9 MG/DL (9-23); CALCIUM LEVEL 9.3 MG/DL (8.3-10.6); CARBON DIOXIDE LEVEL 28 MMOL/L (20-31); CHLORIDE LEVEL 105 MMOL/L (98-107); CREATININE FOR GFR 0.62 MG/DL (0.55-1.30); GLOMERULAR FILTRATION RATE > 60.0 (>32); GLUCOSE, FASTING 76 MG/DL (74-106); POTASSIUM SERUM 4.4 MMOL/L (3.5-5.1); SODIUM LEVEL 142 MMOL/L (136-145)
[2024-08-08 08:40] VITALS: BP 99/54
[2024-08-08] MEDS: OMEPRAZOLE/SODIUM BICARB 20-840MG 10ML ORAL SYRINGE PO SCH (08:40)
[2024-08-08 10:39] LABS: ERYTHROCYTE SEDIMENTATION RATE 29 mm/hr (0-30)
[2024-08-08 11:54] VITALS: BP 127/66; TEMP 97.5; O2SAT 100
[2024-08-08 15:49] VITALS: BP 128/68
[2024-08-08 19:10] VITALS: BP 142/56; TEMP 97.5; O2SAT 99
[2024-08-09 04:00] VITALS: BP 136/66; TEMP 96.6; O2SAT 96
[2024-08-09 06:00] LABS: HEMATOCRIT 30.1 % (36.0-47.0); HEMOGLOBIN 9.4 g/dl (12.0-15.5); MEAN CORPUSCULAR HEMOGLOBIN 30.3 pg (27.0-33.0); MEAN CORPUSCULAR HGB CONC 31.2 g/dl (32.0-36.5); MEAN CORPUSCULAR VOLUME 97.1 fl (80.0-96.0); PLATELET COUNT, AUTOMATED 219 10^3/uL (150-450); WHITE BLOOD COUNT 6.4 10^3/uL (4.0-10.0)
[2024-08-09 06:27] LABS: BLOOD UREA NITROGEN 10 MG/DL (9-23); CALCIUM LEVEL 9.3 MG/DL (8.3-10.6); CARBON DIOXIDE LEVEL 28 MMOL/L (20-31); CHLORIDE LEVEL 104 MMOL/L (98-107); CREATININE FOR GFR 0.75 MG/DL (0.55-1.30); GLOMERULAR FILTRATION RATE > 60.0 (>32); GLUCOSE, FASTING 84 MG/DL (74-106); POTASSIUM SERUM 4.3 MMOL/L (3.5-5.1); SODIUM LEVEL 141 MMOL/L (136-145)
[2024-08-09 12:05] VITALS: BP 102/68; TEMP 97.5; O2SAT 97
[2024-08-09 15:55] VITALS: BP 134/56
[2024-08-09] MEDS: guaiFENesin SYRUP 200MG 10ML UDC PO PRN (16:00)
[2024-08-09 19:45] VITALS: BP 153/68; TEMP 97.7; O2SAT 99
[2024-08-10 06:00] VITALS: BP 113/51; TEMP 97.9; O2SAT 99
[2024-08-10 12:00] VITALS: BP 111/57; TEMP 97.2; O2SAT 96
[2024-08-10 16:08] VITALS: BP 95/46
[2024-08-10] MEDS: LR 1,000 ML IV ONE (16:59)
[2024-08-10 17:26] LABS: EOS % 0.2 % (0.0-3.0); HEMOGLOBIN 8.6 g/dl (12.0-15.5); LYMPH # 1.2 10^3/uL (1.5-5.0); LYMPH % 24.7 % (24.0-44.0); MEAN CORPUSCULAR HEMOGLOBIN 31.3 pg (27.0-33.0); MEAN CORPUSCULAR HGB CONC 31.9 g/dl (32.0-36.5); MEAN CORPUSCULAR VOLUME 98.2 fl (80.0-96.0); MONO # 0.4 10^3/uL (0.0-0.8); MONO % 8.4 % (2.0-8.0); NEUTROPHILS # 3.2 10^3/uL (1.5-8.5); NEUTROPHILS % 65.1 % (36.0-66.0); PLATELET COUNT, AUTOMATED 207 10^3/uL (150-450); RED BLOOD COUNT 2.75 10^6/uL (4.00-5.40); WHITE BLOOD COUNT 4.9 10^3/uL (4.0-10.0)
[2024-08-10 17:51] LABS: C REACTIVE PROTEIN QUANTITATIV 4.16 MG/DL (<1.0)
[2024-08-10 17:53] LABS: ALBUMIN 2.3 G/DL (3.2-5.2); ALKALINE PHOSPHATASE 91 U/L (35-104); ALT/SGPT < 9 U/L (7.0-40); AST/SGOT 15 U/L (<34); BILIRUBIN,TOTAL 0.3 MG/DL (0.3-1.2); BLOOD UREA NITROGEN 11 MG/DL (9-23); CALCIUM LEVEL 8.9 MG/DL (8.3-10.6); CARBON DIOXIDE LEVEL 29 MMOL/L (20-31); CHLORIDE LEVEL 106 MMOL/L (98-107); CPK CREATINE PHOSPHOKINASE 25 U/L (34-145); CREATININE FOR GFR 0.65 MG/DL (0.55-1.30); GLOMERULAR FILTRATION RATE > 60.0 (>32); GLUCOSE, FASTING 130 MG/DL (74-106); POTASSIUM SERUM 4.1 MMOL/L (3.5-5.1); SODIUM LEVEL 139 MMOL/L (136-145); TOTAL PROTEIN 5.5 G/DL (5.7-8.2)
[2024-08-10 20:35] VITALS: BP 139/60; TEMP 97.9; O2SAT 97
[2024-08-11] VITALS (9 sets, daily range): BP systolic 103–156; BP diastolic 55–66; TEMP 97–97.7; O2SAT 92–98
[2024-08-11] MEDS ORDERED: ETOMIDATE INJ 20MG/10ML VIAL As Ordered ONE (11:09)
[2024-08-11] MEDS ORDERED: ePHEDrine SULFATE 25 MG/5 ML(5MG/ML) SYRINGE As Ordered ONE (12:46)
[2024-08-11] MEDS: VANCOMYCIN 500MG/10ML VIAL As Ordered ONE (13:11)
[2024-08-11] MEDS ORDERED: NEOSTIGMINE 10MG 10ML VIAL As Ordered ONE (13:16)
[2024-08-11] MEDS ORDERED: GLYCOPYRROLATE INJ 0.2 MG/ML 2 ML VIAL As Ordered ONE (13:16)
[2024-08-12 04:10] VITALS: BP 119/65; TEMP 97.5; O2SAT 96
[2024-08-12 08:00] VITALS: BP 120/64; TEMP 97.2; O2SAT 99
[2024-08-12 12:00] VITALS: BP 95/50; TEMP 97.5; O2SAT 100
[2024-08-12 12:39] LABS: BASO % 0.1 % (0.0-1.0); EOS % 0.1 % (0.0-3.0); HEMOGLOBIN 7.9 g/dl (12.0-15.5); LYMPH # 1.5 10^3/uL (1.5-5.0); LYMPH % 19.3 % (24.0-44.0); MEAN CORPUSCULAR HEMOGLOBIN 30.9 pg (27.0-33.0); MEAN CORPUSCULAR HGB CONC 31.6 g/dl (32.0-36.5); MEAN CORPUSCULAR VOLUME 97.7 fl (80.0-96.0); MONO # 0.5 10^3/uL (0.0-0.8); MONO % 5.7 % (2.0-8.0); NEUTROPHILS # 5.8 10^3/uL (1.5-8.5); NEUTROPHILS % 73.8 % (36.0-66.0); PLATELET COUNT, AUTOMATED 199 10^3/uL (150-450); RED BLOOD COUNT 2.56 10^6/uL (4.00-5.40); WHITE BLOOD COUNT 7.9 10^3/uL (4.0-10.0)
[2024-08-12 12:45] LABS: ERYTHROCYTE SEDIMENTATION RATE 18 mm/hr (0-30)
[2024-08-12 12:57] LABS: BLOOD UREA NITROGEN 13 MG/DL (9-23); C REACTIVE PROTEIN QUANTITATIV 3.47 MG/DL (<1.0); CALCIUM LEVEL 8.5 MG/DL (8.3-10.6); CARBON DIOXIDE LEVEL 30 MMOL/L (20-31); CHLORIDE LEVEL 105 MMOL/L (98-107); CREATININE FOR GFR 0.65 MG/DL (0.55-1.30); GLOMERULAR FILTRATION RATE > 60.0 (>32); GLUCOSE, FASTING 72 MG/DL (74-106); POTASSIUM SERUM 3.9 MMOL/L (3.5-5.1); SODIUM LEVEL 140 MMOL/L (136-145)
[2024-08-12 16:20] VITALS: BP 109/53; TEMP 97.5; O2SAT 99
[2024-08-12 20:45] VITALS: BP 135/57; TEMP 97.5; O2SAT 97
[2024-08-13 04:30] VITALS: BP 129/59; TEMP 97.5; O2SAT 94
[2024-08-13 06:33] LABS: BASO % 0.2 % (0.0-1.0); HEMATOCRIT 25.6 % (36.0-47.0); HEMOGLOBIN 8.1 g/dl (12.0-15.5); LYMPH # 1.7 10^3/uL (1.5-5.0); LYMPH % 31.1 % (24.0-44.0); MEAN CORPUSCULAR HEMOGLOBIN 30.6 pg (27.0-33.0); MEAN CORPUSCULAR HGB CONC 31.6 g/dl (32.0-36.5); MEAN CORPUSCULAR VOLUME 96.6 fl (80.0-96.0); MONO # 0.3 10^3/uL (0.0-0.8); MONO % 5.9 % (2.0-8.0); NEUTROPHILS # 3.3 10^3/uL (1.5-8.5); NEUTROPHILS % 61.7 % (36.0-66.0); PLATELET COUNT, AUTOMATED 203 10^3/uL (150-450); RED BLOOD COUNT 2.65 10^6/uL (4.00-5.40); WHITE BLOOD COUNT 5.4 10^3/uL (4.0-10.0)
[2024-08-13 06:45] LABS: ERYTHROCYTE SEDIMENTATION RATE 23 mm/hr (0-30)
[2024-08-13 06:55] LABS: BLOOD UREA NITROGEN 9 MG/DL (9-23); C REACTIVE PROTEIN QUANTITATIV 2.91 MG/DL (<1.0); CALCIUM LEVEL 8.8 MG/DL (8.3-10.6); CARBON DIOXIDE LEVEL 29 MMOL/L (20-31); CHLORIDE LEVEL 106 MMOL/L (98-107); CREATININE FOR GFR 0.64 MG/DL (0.55-1.30); GLOMERULAR FILTRATION RATE > 60.0 (>32); GLUCOSE, FASTING 85 MG/DL (74-106); POTASSIUM SERUM 4.2 MMOL/L (3.5-5.1); SODIUM LEVEL 143 MMOL/L (136-145)
[2024-08-13] MEDS ORDERED: BACI1CAP PO (08:23)
[2024-08-13] MEDS ORDERED: CEPH500T PO (08:23)
[2024-08-13 09:08] VITALS: BP 119/56
[2024-08-13] MEDS ORDERED: ENOXAPARIN 40MG/0.4ML SYRINGE (J1650 PER 10MG) SC SCH (16:00)
== END 2024-08-13 11:38 | DRG 466 ==
LOC: M ED 18:03 → EDBD 18:03 → M ED INP 22:45 → M MS5PR 07-17 13:58 → M MSPAV 07-18 13:27 → M PCU 07-31 23:27 → M MSPAV 08-02 15:53
PROVIDERS: ADMIT Student in an Organized Health Care Education/Training Program; ATTEND General Practice
PROC: B246ZZZ Ultrasonography of Right and Left Heart (ICD-10-PCS; 2024-07-18)
PROC: 0SPE0JZ Removal of Synthetic Substitute from Left Hip Joint, Acetabular Surface, Open Approach (ICD-10-PCS; 2024-07-31)
PROC: 8E0Y0CZ Robotic Assisted Procedure of Lower Extremity, Open Approach (ICD-10-PCS; 2024-07-31)
PROC: 0SRB0J9 Replacement of Left Hip Joint with Synthetic Substitute, Cemented, Open Approach (ICD-10-PCS; principal; 2024-07-31 11:30)
PROC: 30233N1 Transfusion of Nonautologous Red Blood Cells into Peripheral Vein, Percutaneous Approach (ICD-10-PCS; 2024-08-01)
PROC: 0SPB09Z Removal of Liner from Left Hip Joint, Open Approach (ICD-10-PCS; 2024-08-11)
PROC: 0SRE0JZ Replacement of Left Hip Joint, Acetabular Surface with Synthetic Substitute, Open Approach (ICD-10-PCS; 2024-08-11)
DX: T84.021A Dislocation of internal left hip prosthesis, initial encounter (principal); I50.33 Acute on chronic diastolic (congestive) heart failure; N39.0 Urinary tract infection, site not specified; E87.0 Hyperosmolality and hypernatremia; T81.31XA Disruption of external operation (surgical) wound, not elsewhere classified, initial encounter; D62 Acute posthemorrhagic anemia; G93.40 Encephalopathy, unspecified; Y83.1 Surgical operation with implant of artificial internal device as the cause of abnormal reaction of the patient, or of later complication, without mention of misadventure at the time of the procedure; E03.9 Hypothyroidism, unspecified; I27.81 Cor pulmonale (chronic); J45.909 Unspecified asthma, uncomplicated; G47.33 Obstructive sleep apnea (adult) (pediatric); F41.9 Anxiety disorder, unspecified; F32.A Depression, unspecified; F03.90 Unspecified dementia, unspecified severity, without behavioral disturbance, psychotic disturbance, mood disturbance, and anxiety; R29.6 Repeated falls; E53.8 Deficiency of other specified B group vitamins; L80 Vitiligo; T84.52XA Infection and inflammatory reaction due to internal left hip prosthesis, initial encounter; H81.10 Benign paroxysmal vertigo, unspecified ear; I95.1 Orthostatic hypotension; K21.9 Gastro-esophageal reflux disease without esophagitis; B96.20 Unspecified Escherichia coli [E. coli] as the cause of diseases classified elsewhere; J44.9 Chronic obstructive pulmonary disease, unspecified; D50.9 Iron deficiency anemia, unspecified; B95.61 Methicillin susceptible Staphylococcus aureus infection as the cause of diseases classified elsewhere; Z79.82 Long term (current) use of aspirin; Z96.642 Presence of left artificial hip joint; Z79.890 Hormone replacement therapy; Z79.899 Other long term (current) drug therapy

== ENCOUNTER → 2024-07-16 | Outpatient (REF) | payer MEDICARE, OTHER, MEDICAID | LOC: SKLAB8 17:10 | PROVIDERS: ATTEND Nurse Practitioner Family | DX: K92.2 Gastrointestinal hemorrhage, unspecified (principal); Z53.9 Procedure and treatment not carried out, unspecified reason ==

== ENCOUNTER → 2024-07-24 | Outpatient (CLI) | payer MEDICARE, OTHER, MEDICAID | LOC: M SOG 07:52 | PROVIDERS: ATTEND Physician Assistant | DX: Z53.9 Procedure and treatment not carried out, unspecified reason (principal) ==

== ENCOUNTER → 2024-07-30 | Outpatient (REF) | payer MEDICARE, OTHER, MEDICAID | LOC: SKLAB8 07:23 | PROVIDERS: ATTEND Internal Medicine | DX: Z53.9 Procedure and treatment not carried out, unspecified reason (principal) ==

== ENCOUNTER → 2024-08-19 | Outpatient (REF) ==
[~2024-08-19] MED LIST changes: +BACI1CAP PO; +CEPH500T PO
[2024-08-19 10:06] LABS: C REACTIVE PROTEIN QUANTITATIV < 0.50 MG/DL (<1.0)
[2024-08-19 10:07] LABS: BLOOD UREA NITROGEN 18 MG/DL (9-23); CALCIUM LEVEL 8.6 MG/DL (8.3-10.6); CARBON DIOXIDE LEVEL 29 MMOL/L (20-31); CHLORIDE LEVEL 105 MMOL/L (98-107); CREATININE FOR GFR 0.63 MG/DL (0.55-1.30); GLOMERULAR FILTRATION RATE > 60.0 (>32); GLUCOSE, FASTING 77 MG/DL (74-106); POTASSIUM SERUM 4.2 MMOL/L (3.5-5.1); SODIUM LEVEL 142 MMOL/L (136-145)
[2024-08-19 10:22] LABS: BASO % 0.4 % (0.0-1.0); HEMATOCRIT 27.3 % (36.0-47.0); HEMOGLOBIN 8.4 g/dl (12.0-15.5); LYMPH # 1.8 10^3/uL (1.5-5.0); LYMPH % 35.1 % (24.0-44.0); MEAN CORPUSCULAR HEMOGLOBIN 30.4 pg (27.0-33.0); MEAN CORPUSCULAR HGB CONC 30.8 g/dl (32.0-36.5); MEAN CORPUSCULAR VOLUME 98.9 fl (80.0-96.0); MONO # 0.4 10^3/uL (0.0-0.8); MONO % 7.3 % (2.0-8.0); NEUTROPHILS # 2.8 10^3/uL (1.5-8.5); NEUTROPHILS % 53.8 % (36.0-66.0); PLATELET COUNT, AUTOMATED 259 10^3/uL (150-450); RED BLOOD COUNT 2.76 10^6/uL (4.00-5.40); WHITE BLOOD COUNT 5.2 10^3/uL (4.0-10.0)
[2024-08-19 10:30] LABS: ERYTHROCYTE SEDIMENTATION RATE 17 mm/hr (0-30)
== END ==
LOC: SKLAB8 07:00
PROVIDERS: ATTEND Internal Medicine
DX: T81.42XD Infection following a procedure, deep incisional surgical site, subsequent encounter (principal)

== ENCOUNTER → 2024-08-27 | Outpatient (REF) | payer MEDICARE, OTHER, MEDICAID ==
[2024-08-27 09:23] LABS: EOS % 0.2 % (0.0-3.0); HEMOGLOBIN 8.3 g/dl (12.0-15.5); LYMPH # 1.6 10^3/uL (1.5-5.0); LYMPH % 37.6 % (24.0-44.0); MEAN CORPUSCULAR HEMOGLOBIN 30.6 pg (27.0-33.0); MEAN CORPUSCULAR HGB CONC 30.7 g/dl (32.0-36.5); MEAN CORPUSCULAR VOLUME 99.6 fl (80.0-96.0); MONO # 0.4 10^3/uL (0.0-0.8); MONO % 8.4 % (2.0-8.0); NEUTROPHILS # 2.2 10^3/uL (1.5-8.5); NEUTROPHILS % 52.8 % (36.0-66.0); PLATELET COUNT, AUTOMATED 214 10^3/uL (150-450); RED BLOOD COUNT 2.71 10^6/uL (4.00-5.40); WHITE BLOOD COUNT 4.2 10^3/uL (4.0-10.0)
[2024-08-27 09:27] LABS: ERYTHROCYTE SEDIMENTATION RATE 14 mm/hr (0-30)
[2024-08-27 09:51] LABS: BLOOD UREA NITROGEN 19 MG/DL (9-23); CARBON DIOXIDE LEVEL 30 MMOL/L (20-31); CHLORIDE LEVEL 105 MMOL/L (98-107); CREATININE FOR GFR 0.73 MG/DL (0.55-1.30); GLOMERULAR FILTRATION RATE > 60.0 (>32); GLUCOSE, FASTING 81 MG/DL (74-106); POTASSIUM SERUM 4.6 MMOL/L (3.5-5.1); SODIUM LEVEL 141 MMOL/L (136-145)
[2024-08-27 09:56] LABS: C REACTIVE PROTEIN QUANTITATIV < 0.50 MG/DL (<1.0)
== END ==
LOC: SKLAB8 07:00
PROVIDERS: ATTEND Internal Medicine
DX: T81.42XD Infection following a procedure, deep incisional surgical site, subsequent encounter (principal); B95.61 Methicillin susceptible Staphylococcus aureus infection as the cause of diseases classified elsewhere

== ENCOUNTER → 2024-09-02 | Outpatient (CLI) | payer MEDICARE, OTHER, MEDICAID | LOC: M RAD 08:41 | PROVIDERS: ATTEND Internal Medicine | DX: S72.001D Fracture of unspecified part of neck of right femur, subsequent encounter for closed fracture with routine healing (principal) ==

== ENCOUNTER → 2024-09-03 | Outpatient (REF) | payer MEDICARE, OTHER, MEDICAID ==
[2024-09-03 11:55] LABS: BASO % 0.1 % (0.0-1.0); EOS % 0.1 % (0.0-3.0); HEMATOCRIT 28.6 % (36.0-47.0); LYMPH # 1.1 10^3/uL (1.5-5.0); LYMPH % 10.5 % (24.0-44.0); MEAN CORPUSCULAR HEMOGLOBIN 31.7 pg (27.0-33.0); MEAN CORPUSCULAR HGB CONC 31.5 g/dl (32.0-36.5); MEAN CORPUSCULAR VOLUME 100.7 fl (80.0-96.0); MONO # 0.6 10^3/uL (0.0-0.8); MONO % 5.6 % (2.0-8.0); NEUTROPHILS # 8.6 10^3/uL (1.5-8.5); NEUTROPHILS % 82.9 % (36.0-66.0); PLATELET COUNT, AUTOMATED 228 10^3/uL (150-450); RED BLOOD COUNT 2.84 10^6/uL (4.00-5.40); WHITE BLOOD COUNT 10.4 10^3/uL (4.0-10.0)
[2024-09-03 11:59] LABS: ERYTHROCYTE SEDIMENTATION RATE 16 mm/hr (0-30)
[2024-09-03 12:19] LABS: BLOOD UREA NITROGEN 22 MG/DL (9-23); C REACTIVE PROTEIN QUANTITATIV 1.03 MG/DL (<1.0); CALCIUM LEVEL 9.6 MG/DL (8.3-10.6); CARBON DIOXIDE LEVEL 27 MMOL/L (20-31); CHLORIDE LEVEL 105 MMOL/L (98-107); CREATININE FOR GFR 0.73 MG/DL (0.55-1.30); GLOMERULAR FILTRATION RATE > 60.0 (>32); GLUCOSE, FASTING 70 MG/DL (74-106); POTASSIUM SERUM 4.8 MMOL/L (3.5-5.1); SODIUM LEVEL 138 MMOL/L (136-145)
== END ==
LOC: SKLAB8 07:41
PROVIDERS: ATTEND Internal Medicine
DX: T81.42XD Infection following a procedure, deep incisional surgical site, subsequent encounter (principal); Z79.899 Other long term (current) drug therapy

== ENCOUNTER → 2024-09-07 | Outpatient (REF) | payer MEDICARE, OTHER, MEDICAID | LOC: SKLAB8 10:22 | PROVIDERS: ATTEND Internal Medicine | DX: Z53.9 Procedure and treatment not carried out, unspecified reason (principal) ==

== ENCOUNTER → 2024-09-10 | Outpatient (REF) | payer MEDICARE, OTHER, MEDICAID ==
[2024-09-10 06:24] LABS: EOS % 0.7 % (0.0-3.0); HEMATOCRIT 28.4 % (36.0-47.0); HEMOGLOBIN 9.2 g/dl (12.0-15.5); LYMPH # 1.7 10^3/uL (1.5-5.0); LYMPH % 37.7 % (24.0-44.0); MEAN CORPUSCULAR HEMOGLOBIN 31.7 pg (27.0-33.0); MEAN CORPUSCULAR HGB CONC 32.4 g/dl (32.0-36.5); MEAN CORPUSCULAR VOLUME 97.9 fl (80.0-96.0); MONO # 0.4 10^3/uL (0.0-0.8); MONO % 8.9 % (2.0-8.0); NEUTROPHILS # 2.3 10^3/uL (1.5-8.5); NEUTROPHILS % 51.4 % (36.0-66.0); PLATELET COUNT, AUTOMATED 276 10^3/uL (150-450); WHITE BLOOD COUNT 4.5 10^3/uL (4.0-10.0)
[2024-09-10 06:46] LABS: C REACTIVE PROTEIN QUANTITATIV < 0.50 MG/DL (<1.0)
[2024-09-10 06:47] LABS: BLOOD UREA NITROGEN 21 MG/DL (9-23); CALCIUM LEVEL 9.3 MG/DL (8.3-10.6); CARBON DIOXIDE LEVEL 27 MMOL/L (20-31); CHLORIDE LEVEL 105 MMOL/L (98-107); CREATININE FOR GFR 0.71 MG/DL (0.55-1.30); GLOMERULAR FILTRATION RATE > 60.0 (>32); GLUCOSE, FASTING 84 MG/DL (74-106); POTASSIUM SERUM 4.6 MMOL/L (3.5-5.1); SODIUM LEVEL 139 MMOL/L (136-145)
[2024-09-10 08:07] LABS: ERYTHROCYTE SEDIMENTATION RATE 15 mm/hr (0-30)
== END ==
LOC: SKLAB8 07:00
PROVIDERS: ATTEND Internal Medicine
DX: T81.42XD Infection following a procedure, deep incisional surgical site, subsequent encounter (principal); Z79.899 Other long term (current) drug therapy

== ENCOUNTER → 2024-09-15 | Outpatient (CLI) | payer MEDICARE, OTHER | LOC: M RAD 10:16 | PROVIDERS: ATTEND Internal Medicine | DX: M25.552 Pain in left hip (principal) ==

== ENCOUNTER → 2024-09-21 | Outpatient (REF) | payer MEDICARE, OTHER, MEDICAID ==
[2024-09-21 06:33] LABS: EOS % 0.8 % (0.0-3.0); HEMATOCRIT 28.9 % (36.0-47.0); HEMOGLOBIN 9.1 g/dl (12.0-15.5); LYMPH # 1.9 10^3/uL (1.5-5.0); LYMPH % 37.1 % (24.0-44.0); MEAN CORPUSCULAR HEMOGLOBIN 31.3 pg (27.0-33.0); MEAN CORPUSCULAR HGB CONC 31.5 g/dl (32.0-36.5); MEAN CORPUSCULAR VOLUME 99.3 fl (80.0-96.0); MONO # 0.5 10^3/uL (0.0-0.8); MONO % 9.9 % (2.0-8.0); NEUTROPHILS # 2.6 10^3/uL (1.5-8.5); NEUTROPHILS % 51.6 % (36.0-66.0); PLATELET COUNT, AUTOMATED 244 10^3/uL (150-450); RED BLOOD COUNT 2.91 10^6/uL (4.00-5.40)
[2024-09-21 06:39] LABS: ERYTHROCYTE SEDIMENTATION RATE 19 mm/hr (0-30)
== END ==
LOC: SKLAB8 07:00
PROVIDERS: ATTEND Internal Medicine
DX: T81.42XD Infection following a procedure, deep incisional surgical site, subsequent encounter (principal); Z79.899 Other long term (current) drug therapy

== ENCOUNTER → 2024-11-24 | Outpatient (REF) | payer MEDICARE, OTHER, MEDICAID ==
[~2024-11-24] MED LIST changes: -FLUO10TA30 PO; +FLUO1TAB2 PO
[2024-11-24 12:52] LABS: HEMATOCRIT 33.6 % (36.0-47.0); HEMOGLOBIN 10.6 g/dl (12.0-15.5); MEAN CORPUSCULAR HEMOGLOBIN 30.5 pg (27.0-33.0); MEAN CORPUSCULAR HGB CONC 31.5 g/dl (32.0-36.5); MEAN CORPUSCULAR VOLUME 96.6 fl (80.0-96.0); PLATELET COUNT, AUTOMATED 246 10^3/uL (150-450); RED BLOOD COUNT 3.48 10^6/uL (4.00-5.40); WHITE BLOOD COUNT 7.7 10^3/uL (4.0-10.0)
[2024-11-24 13:22] LABS: ALBUMIN 3.1 G/DL (3.2-5.2); BILIRUBIN,TOTAL 0.2 MG/DL (0.3-1.2); CALCIUM LEVEL 9.3 MG/DL (8.3-10.6); CREATININE FOR GFR 0.88 MG/DL (0.55-1.30); MAGNESIUM LEVEL 1.9 MG/DL (1.8-2.4); POTASSIUM SERUM 4.8 MMOL/L (3.5-5.1); TOTAL PROTEIN 6.6 G/DL (5.7-8.2)
[2024-11-24 13:23] LABS: THYROID STIMULATING HORMONE 19.451 uIU/ML (0.55-4.78)
== END ==
LOC: SKLAB8 11:56
PROVIDERS: ATTEND Internal Medicine
DX: R41.82 Altered mental status, unspecified (principal)

== ENCOUNTER 2025-01-08 09:21 | Inpatient (IN) | payer MEDICARE, OTHER, MEDICAID ==
[~2025-01-08] VITALS: Ht 157.5 cm; Wt 56.4 kg
[2025-01-08] MEDS: PANTOPRAZOLE 20 MG TAB PO SCH (09:00)
[2025-01-08] MEDS: NS (Normal Saline) 0.9% 1,000 ML IV SCH ×2 (10:21→23:00)
[2025-01-08] MEDS ORDERED: FLUO-365 PO (10:43)
[2025-01-08] MEDS ORDERED: CYAN100017 INJ (10:44)
[2025-01-08] MEDS ORDERED: HOME MED LIST COMPLETE! XX SCH (10:45)
[2025-01-08 11:16] LABS: BASO # 0.0 10^3/uL (0.0-0.2); BASO % 0.0 % (0.0-1.0); EOS # 0.2 10^3/uL (0.0-0.5); EOS % 2.6 % (0.0-3.0); LYMPH # 1.3 10^3/uL (1.5-5.0); LYMPH % 22.3 % (24.0-44.0); MONO # 0.3 10^3/uL (0.0-0.8); MONO % 5.5 % (2.0-8.0); NEUTROPHILS # 4.0 10^3/uL (1.5-8.5); NEUTROPHILS % 69.1 % (36.0-66.0); PLATELET COUNT, AUTOMATED 267 10^3/uL (150-450)
[2025-01-08 11:38] LABS: INR 0.91
[2025-01-08] MEDS: MORPHINE 2 MG/ML 1 ML VIAL IV PRN (11:48)
[2025-01-08 11:49] LABS: CALCIUM LEVEL 9.9 MG/DL (8.3-10.6); CARBON DIOXIDE LEVEL 28.0 MMOL/L (20-31); CHLORIDE LEVEL 104.0 MMOL/L (98-107); CREATININE FOR GFR 0.75 MG/DL (0.55-1.30); GLOMERULAR FILTRATION RATE 79.9 (>32); POTASSIUM SERUM 4.6 MMOL/L (3.5-5.1); SODIUM LEVEL 140.0 MMOL/L (136-145)
[2025-01-08] MEDS ORDERED: PILL CUTTER 1 EACH XX PRN (13:35)
[2025-01-08] MEDS ORDERED: IPRATROPIUM 0.5 MG/ALBUTEROL 2.5 MG INH SOL UD 3 ML NEB PRN (13:35)
[2025-01-08] MEDS: ENOXAPARIN 40 MG/0.4 ML SYRINGE (J1650 PER 10MG) SC ONE (14:12)
[2025-01-08] MEDS: MIRALAX *UNIT DOSE* 17 GM PACKET PO SCH (14:12)
[2025-01-08] MEDS: FERROUS SULFATE 325 MG TAB PO SCH (14:12)
[2025-01-08] MEDS: FLUoxetine 20 MG CAP PO SCH (14:12)
[2025-01-08] MEDS: ACETAMINOPHEN 325 MG TAB PO SCH (14:12)
[2025-01-08 15:00] VITALS: BP 127/71; TEMP 97.7
[2025-01-08] MEDS: MIDODRINE 5 MG TAB PO SCH (16:00)
[2025-01-08] MEDS: QUEtiapine FUMARATE 50MG TAB PO SCH (17:01)
[2025-01-08] MEDS: OLANZapine 5 MG TAB PO SCH (17:01)
[2025-01-08] MEDS: ADVAIR HFA 115/21 MCG INHALER INH SCH (19:44)
[2025-01-08 20:00] VITALS: BP 96/52; TEMP 97.2; O2SAT 100
[2025-01-08] MEDS: clonazePAM 0.5 MG TAB PO SCH (21:00)
[2025-01-08] MEDS: MIRTAZAPINE 15 MG TAB PO SCH (21:00)
[2025-01-09 04:00] VITALS: BP 127/73; TEMP 97.3; O2SAT 99
[2025-01-09 05:57] LABS: PLATELET COUNT, AUTOMATED 243 10^3/uL (150-450)
[2025-01-09] MEDS: LEVOTHYROXINE 125 MCG TABLET (0.125 MG) PO SCH (06:00)
[2025-01-09 06:19] LABS: CALCIUM LEVEL 9.3 MG/DL (8.3-10.6); CARBON DIOXIDE LEVEL 25.0 MMOL/L (20-31); CHLORIDE LEVEL 106.0 MMOL/L (98-107); CREATININE FOR GFR 0.67 MG/DL (0.55-1.30); GLOMERULAR FILTRATION RATE 87.8 (>32); POTASSIUM SERUM 4.6 MMOL/L (3.5-5.1); SODIUM LEVEL 140.0 MMOL/L (136-145)
[2025-01-09] MEDS: MORPHINE 2 MG/ML 1 ML VIAL IV PRN (06:20)
[2025-01-09 12:00] VITALS: BP 131/68; TEMP 97.3; O2SAT 98
[2025-01-09 20:04] VITALS: BP 136/82; TEMP 97.5; O2SAT 97
[2025-01-10] VITALS (9 sets, daily range): BP systolic 101–159; BP diastolic 45–100; TEMP 96.8–97.6; O2SAT 95–100
[2025-01-10 06:11] LABS: BASO # 0.0 10^3/uL (0.0-0.2); BASO % 0.0 % (0.0-1.0); EOS # 0.1 10^3/uL (0.0-0.5); EOS % 2.1 % (0.0-3.0); LYMPH # 1.2 10^3/uL (1.5-5.0); LYMPH % 20.2 % (24.0-44.0); MONO # 0.5 10^3/uL (0.0-0.8); MONO % 8.5 % (2.0-8.0); NEUTROPHILS # 4.2 10^3/uL (1.5-8.5); NEUTROPHILS % 68.7 % (36.0-66.0); PLATELET COUNT, AUTOMATED 231 10^3/uL (150-450)
[2025-01-10 06:36] LABS: CALCIUM LEVEL 10.0 MG/DL (8.3-10.6); CARBON DIOXIDE LEVEL 26.0 MMOL/L (20-31); CHLORIDE LEVEL 106.0 MMOL/L (98-107); CREATININE FOR GFR 0.64 MG/DL (0.55-1.30); GLOMERULAR FILTRATION RATE 88.7 (>32); POTASSIUM SERUM 4.6 MMOL/L (3.5-5.1); SODIUM LEVEL 140.0 MMOL/L (136-145)
[2025-01-10] MEDS: TRANEXAMIC ACID 100 MG/ML 10ML VIAL As Ordered ONE (08:12)
[2025-01-10] MEDS ORDERED: LIDOCAINE 2% 100 MG/5 ML SDV (FOR ANES.) As Ordered ONE (08:58)
[2025-01-10] MEDS ORDERED: ONDANSETRON 4MG 2ML VIAL As Ordered ONE (08:58)
[2025-01-10] MEDS ORDERED: ROCURONIUM BROMIDE 50MG/5ML VIAL As Ordered ONE (08:58)
[2025-01-10] MEDS ORDERED: dexAMETHasone 4 MG/ML 1 ML VIAL As Ordered ONE (08:58)
[2025-01-10] MEDS ORDERED: ACETAMINOPHEN 1000MG/100ML IV BAG As Ordered ONE (09:52)
[2025-01-10] MEDS ORDERED: KETOROLAC 30 MG/ML 1 ML VIAL As Ordered ONE (09:56)
[2025-01-10] MEDS ORDERED: SUGAMMADEX SODIUM 200 MG/2 ML VIAL As Ordered ONE (09:58)
[2025-01-10] MEDS ORDERED: PHENYLephrine 500MCG 5ML (100MCG/ML) SYRINGE As Ordered ONE (10:00)
[2025-01-10] MEDS: REK 50ML SYRINGE IA ONE (10:12)
[2025-01-10] MEDS ORDERED: ALBUTEROL SULFATE 2.5 MG/0.5 ML INH CONCENTRATE NEB SOLN INH PRN (10:20)
[2025-01-10] MEDS: HYDROMORPHONE HCL 0.5 MG/0.5 ML SYRINGE IV PRN (10:37)
[2025-01-10] MEDS: PERCOCET 5MG/325MG TAB PO PRN (15:57)
[2025-01-10] MEDS: ceFAZolin SODIUM 2 GM in DEXTROSE 5% (D5W) ADV/MINI-BAG 50 ML IV SCH (17:16)
[2025-01-10] MEDS: ASPIRIN 81 MG ENTERIC TABLET PO SCH (20:53)
[2025-01-11] VITALS (7 sets, daily range): BP systolic 78–116; BP diastolic 43–78; TEMP 97–97.5; O2SAT 98–100
[2025-01-11 07:15] LABS: PLATELET COUNT, AUTOMATED 219 10^3/uL (150-450)
[2025-01-11 07:30] LABS: INR 0.98
[2025-01-11 07:50] LABS: ALT/SGPT 9.0 U/L (7.0-40); AST/SGOT 28.0 U/L (<34); CALCIUM LEVEL 9.1 MG/DL (8.3-10.6); CARBON DIOXIDE LEVEL 27.0 MMOL/L (20-31); CHLORIDE LEVEL 106.0 MMOL/L (98-107); CREATININE FOR GFR 0.82 MG/DL (0.55-1.30); GLOMERULAR FILTRATION RATE 71.8 (>32); PHOSPHORUS LEVEL 3.0 MG/DL (2.4-5.1); POTASSIUM SERUM 4.6 MMOL/L (3.5-5.1); SODIUM LEVEL 141.0 MMOL/L (136-145)
[2025-01-12 03:45] VITALS: BP 119/52; TEMP 97.3; O2SAT 99
[2025-01-12 07:11] LABS: PLATELET COUNT, AUTOMATED 238 10^3/uL (150-450)
[2025-01-12 07:23] LABS: INR 0.93
[2025-01-12 07:39] LABS: ALT/SGPT < 9 U/L (7.0-40); AST/SGOT 30 U/L (<34); CALCIUM LEVEL 9.7 MG/DL (8.3-10.6); CARBON DIOXIDE LEVEL 29 MMOL/L (20-31); CHLORIDE LEVEL 106 MMOL/L (98-107); CREATININE FOR GFR 0.95 MG/DL (0.55-1.30); GLOMERULAR FILTRATION RATE 60.2 (>32); PHOSPHORUS LEVEL 2.4 MG/DL (2.4-5.1); POTASSIUM SERUM 4.9 MMOL/L (3.5-5.1); SODIUM LEVEL 144 MMOL/L (136-145)
[2025-01-12 08:00] VITALS: BP 123/54
[2025-01-12 09:09] VITALS: BP 123/54
[2025-01-12] MEDS ORDERED: OXYC1TAB23 PO (09:53)
[2025-01-12] MEDS ORDERED: ASPI-424 PO (09:53)
== END 2025-01-12 10:55 | DRG 465 ==
LOC: M ED 09:21 → EDBD 09:21 → M ED INP 13:17 → M MS5PR 14:52
PROVIDERS: ADMIT Internal Medicine; ATTEND Internal Medicine
PROC: 0SPB0JZ Removal of Synthetic Substitute from Left Hip Joint, Open Approach (ICD-10-PCS; principal; 2025-01-10 08:00)
DX: T84.021A Dislocation of internal left hip prosthesis, initial encounter (principal); F03.90 Unspecified dementia, unspecified severity, without behavioral disturbance, psychotic disturbance, mood disturbance, and anxiety; F32.A Depression, unspecified; I95.1 Orthostatic hypotension; D50.9 Iron deficiency anemia, unspecified; K21.9 Gastro-esophageal reflux disease without esophagitis; R26.89 Other abnormalities of gait and mobility; Z96.643 Presence of artificial hip joint, bilateral; R29.6 Repeated falls; J44.9 Chronic obstructive pulmonary disease, unspecified; M81.0 Age-related osteoporosis without current pathological fracture; Z79.51 Long term (current) use of inhaled steroids; Z79.890 Hormone replacement therapy; Z79.899 Other long term (current) drug therapy; Z90.79 Acquired absence of other genital organ(s)

== ENCOUNTER → 2025-01-21 | Outpatient (REF) | payer MEDICAID, MEDICARE, OTHER ==
[~2025-01-21] MED LIST changes: +ASPI-424 PO; +CYAN100017 INJ; +FLUO-365 PO; +OXYC1TAB23 PO
[2025-01-21 07:54] LABS: BASO # 0.0 10^3/uL (0.0-0.2); BASO % 0.1 % (0.0-1.0); EOS # 0.1 10^3/uL (0.0-0.5); EOS % 0.6 % (0.0-3.0); LYMPH # 1.4 10^3/uL (1.5-5.0); LYMPH % 17.3 % (24.0-44.0); MONO # 0.7 10^3/uL (0.0-0.8); MONO % 9.1 % (2.0-8.0); NEUTROPHILS # 5.6 10^3/uL (1.5-8.5); NEUTROPHILS % 72.0 % (36.0-66.0); PLATELET COUNT, AUTOMATED 312 10^3/uL (150-450)
[2025-01-21 08:25] LABS: CALCIUM LEVEL 9.4 MG/DL (8.3-10.6); CARBON DIOXIDE LEVEL 27.0 MMOL/L (20-31); CHLORIDE LEVEL 104.0 MMOL/L (98-107); CREATININE FOR GFR 0.76 MG/DL (0.55-1.30); GLOMERULAR FILTRATION RATE 78.7 (>32); POTASSIUM SERUM 4.6 MMOL/L (3.5-5.1); SODIUM LEVEL 143.0 MMOL/L (136-145)
== END ==
LOC: SKLAB8 07:00
PROVIDERS: ATTEND Internal Medicine
DX: S72.002D Fracture of unspecified part of neck of left femur, subsequent encounter for closed fracture with routine healing (principal); E03.9 Hypothyroidism, unspecified

== ENCOUNTER → 2025-01-21 | Outpatient (REF) | payer MEDICAID, MEDICARE, OTHER | LOC: M SOG 07:16 → EDSTATUS 09:44 | PROVIDERS: ATTEND Orthopaedic Surgery | DX: T84.021A Dislocation of internal left hip prosthesis, initial encounter (principal); Z96.643 Presence of artificial hip joint, bilateral; Y84.8 Other medical procedures as the cause of abnormal reaction of the patient, or of later complication, without mention of misadventure at the time of the procedure ==

== ENCOUNTER → 2025-01-26 | Outpatient (REF) | payer MEDICAID, MEDICARE, OTHER ==
[2025-01-26 13:57] LABS: BASO # 0.0 10^3/uL (0.0-0.2); BASO % 0.0 % (0.0-1.0); EOS # 0.1 10^3/uL (0.0-0.5); EOS % 1.8 % (0.0-3.0); LYMPH # 1.2 10^3/uL (1.5-5.0); LYMPH % 20.8 % (24.0-44.0); MONO # 0.4 10^3/uL (0.0-0.8); MONO % 6.5 % (2.0-8.0); NEUTROPHILS # 4.2 10^3/uL (1.5-8.5); NEUTROPHILS % 70.4 % (36.0-66.0); PLATELET COUNT, AUTOMATED 321 10^3/uL (150-450)
[2025-01-26 14:09] LABS: AMORPHOUS SEDIMENT SMALL (NEGATIVE); APPEARANCE, URINE HAZY (CLEAR); BACTERIA, URINE AUTO 1+ (NEGATIVE); BILIRUBIN, URINE AUTO NEGATIVE (NEGATIVE); BLOOD, URINE BLOOD 1+ (NEGATIVE); GLUCOSE, URINE (UA) AUTO NEGATIVE (NEGATIVE); KETONE, URINE AUTO NEGATIVE (NEGATIVE); LEUKOCYTE ESTERASE, URINE AUTO NEGATIVE (NEGATIVE); MUCUS, URINE SMALL (NEGATIVE); NITRITE, URINE AUTO POSITIVE (NEGATIVE); PROTEIN, URINE AUTO NEGATIVE (NEGATIVE); RBC, URINE AUTO 1 /HPF (0-3); SPECIFIC GRAVITY URINE AUTO 1.011 (1.002-1.035); SQUAMOUS EPITHELIAL CELL UR AU 2 /HPF (0-6); UROBILINOGEN, URINE AUTO 0.2 mg/dL (0.0-2.0); WBC, URINE AUTO 2 /HPF (0-3)
[2025-01-26 14:21] LABS: ALT/SGPT 14.0 U/L (7.0-40); AST/SGOT 25.0 U/L (<34); CALCIUM LEVEL 9.1 MG/DL (8.3-10.6); CARBON DIOXIDE LEVEL 26.0 MMOL/L (20-31); CHLORIDE LEVEL 104.0 MMOL/L (98-107); CREATININE FOR GFR 0.71 MG/DL (0.55-1.30); GLOMERULAR FILTRATION RATE 85.4 (>32); POTASSIUM SERUM 4.3 MMOL/L (3.5-5.1); SODIUM LEVEL 139.0 MMOL/L (136-145)
== END ==
LOC: SKLAB8 13:03 → EEVIPCON 13:03
PROVIDERS: ATTEND Internal Medicine
DX: R41.82 Altered mental status, unspecified (principal)

== ENCOUNTER 2025-02-04 23:26 | Emergency (ER) | payer MEDICARE, OTHER, MEDICAID ==
[~2025-02-04] VITALS: Ht 167.6 cm; Wt 58.9 kg
[~2025-02-04 23:26] MED LIST changes: +ACET-1515 PO; -ACET650T15 PO
[2025-02-05 03:06] LABS: BASO # 0.0 10^3/uL (0.0-0.2); BASO % 0.1 % (0.0-1.0); EOS # 0.3 10^3/uL (0.0-0.5); EOS % 3.1 % (0.0-3.0); LYMPH # 1.5 10^3/uL (1.5-5.0); LYMPH % 18.7 % (24.0-44.0); MONO # 0.7 10^3/uL (0.0-0.8); MONO % 8.4 % (2.0-8.0); NEUTROPHILS # 5.5 10^3/uL (1.5-8.5); NEUTROPHILS % 69.1 % (36.0-66.0); PLATELET COUNT, AUTOMATED 222 10^3/uL (150-450)
[2025-02-05 04:52] LABS: CK-MB VALUE MASS 4.2 NG/ML (<3.6)
[2025-02-05 04:54] LABS: C REACTIVE PROTEIN QUANTITATIV 3.79 MG/DL (<1.0); CALCIUM LEVEL 9.1 MG/DL (8.3-10.6); CARBON DIOXIDE LEVEL 26.0 MMOL/L (20-31); CHLORIDE LEVEL 105.0 MMOL/L (98-107); CREATININE FOR GFR 0.72 MG/DL (0.55-1.30); GLOMERULAR FILTRATION RATE 84.0 (>32); POTASSIUM SERUM 4.9 MMOL/L (3.5-5.1); SODIUM LEVEL 140.0 MMOL/L (136-145)
[2025-02-05 05:14] LABS: CPK CREATINE PHOSPHOKINASE 198.0 U/L (34-145); MB/CK RELATIVE INDEX 2.12 (< OR =4)
[2025-02-05] MEDS ORDERED: CEPH500C PO (06:30)
[2025-02-05] MEDS: cefTRIAXone SOD 2 GM in DEXTROSE 5% (D5W) ADV/MINI-BAG 50 ML IV ONE (07:00)
[2025-02-05 07:31] VITALS: BP 119/56
[2025-02-05 07:46] VITALS: O2SAT 100
[2025-02-05 07:53] VITALS: TEMP 96.1
== END 2025-02-05 08:00 | disposition home or self-care (01) ==
LOC: M ED 23:26
DX: L03.116 Cellulitis of left lower limb (principal); I10 Essential (primary) hypertension; J45.909 Unspecified asthma, uncomplicated; G47.33 Obstructive sleep apnea (adult) (pediatric); E03.9 Hypothyroidism, unspecified; F03.90 Unspecified dementia, unspecified severity, without behavioral disturbance, psychotic disturbance, mood disturbance, and anxiety; F41.9 Anxiety disorder, unspecified; F32.A Depression, unspecified
CPT/HCPCS: 71045; 80048; 82550; 82553; 83605; 84145; 84484; 85025; 86140; 93005; 96365; 99285; J0696

== ENCOUNTER → 2025-02-12 | Outpatient (REF) | payer MEDICARE, OTHER, MEDICAID ==
[~2025-02-12] MED LIST changes: +CEPH500C PO
[2025-02-12 09:23] LABS: BASO # 0.0 10^3/uL (0.0-0.2); BASO % 0.3 % (0.0-1.0); EOS # 0.2 10^3/uL (0.0-0.5); EOS % 2.6 % (0.0-3.0); LYMPH # 1.3 10^3/uL (1.5-5.0); LYMPH % 20.8 % (24.0-44.0); MONO # 0.4 10^3/uL (0.0-0.8); MONO % 6.3 % (2.0-8.0); NEUTROPHILS # 4.3 10^3/uL (1.5-8.5); NEUTROPHILS % 69.0 % (36.0-66.0); PLATELET COUNT, AUTOMATED 223 10^3/uL (150-450)
[2025-02-12 09:36] LABS: ERYTHROCYTE SEDIMENTATION RATE 33 mm/hr (0-30)
[2025-02-12 09:54] LABS: C REACTIVE PROTEIN QUANTITATIV 1.79 MG/DL (<1.0); CALCIUM LEVEL 9.3 MG/DL (8.3-10.6); CARBON DIOXIDE LEVEL 23.0 MMOL/L (20-31); CHLORIDE LEVEL 104.0 MMOL/L (98-107); CREATININE FOR GFR 0.64 MG/DL (0.55-1.30); GLOMERULAR FILTRATION RATE 88.7 (>32); POTASSIUM SERUM 4.7 MMOL/L (3.5-5.1); SODIUM LEVEL 138.0 MMOL/L (136-145)
== END ==
LOC: SKLAB8 07:00
PROVIDERS: ATTEND Internal Medicine
DX: L03.116 Cellulitis of left lower limb (principal)

== ENCOUNTER 2025-02-25 12:27 | Inpatient (IN) | payer MEDICARE, OTHER, MEDICAID ==
[~2025-02-25] VITALS: Ht 157.5 cm; Wt 58.3 kg
[2025-02-25] VITALS (36 sets, daily range): BP systolic 76–161; BP diastolic 43–119; TEMP 97.5–98.5; O2SAT 82–98
[~2025-02-25 12:27] MED LIST changes: -VITA100T14 PO; +VITA100T69 PO
[2025-02-25] MEDS: [UNRECOGNIZED DRUG - OTHER] IV ONE (13:09)
[2025-02-25] MEDS: NS 0.9% IV ONE (13:09)
[2025-02-25 13:17] LABS: VENOUS BASE EXCESS -0.1 (-2.0-2.0); VENOUS HCO3 25.3 MMOL/L (23.0-27.0); VENOUS O2 SATURATION 96.0 % (60.0-80.0); VENOUS PARTIAL PRESSURE CO2 44.4 mmHg (38.0-50.0); VENOUS PARTIAL PRESSURE O2 81.7 mmHg (30.0-50.0); VENOUS PH 7.374 UNITS (7.330-7.430); VENOUS STANDARD HCO3 24.4 MMOL/L; VENOUS TOTAL CO2 26.7 MMOL/L (24.0-28.0)
[2025-02-25] MEDS: PIPERACILLIN/TAZOBACTAM SOD 4.5 GM in DEXTROSE 5% (D5W) ADV/MINI-BAG 50 ML IV ONE (13:18)
[2025-02-25 13:29] LABS: ALT/SGPT 28 U/L (7.0-40); AST/SGOT 44 U/L (<34); C REACTIVE PROTEIN QUANTITATIV 2.51 MG/DL (<1.0); CALCIUM LEVEL 10.1 MG/DL (8.3-10.6); CARBON DIOXIDE LEVEL 27 MMOL/L (20-31); CHLORIDE LEVEL 104 MMOL/L (98-107); CREATININE FOR GFR 0.70 MG/DL (0.55-1.30); GLOMERULAR FILTRATION RATE 86.8 (>32); POTASSIUM SERUM 5.1 MMOL/L (3.5-5.1); SODIUM LEVEL 140 MMOL/L (136-145)
[2025-02-25 13:31] LABS: APPEARANCE, URINE CLOUDY (CLEAR); BACTERIA, URINE AUTO 2+ (NEGATIVE); BILIRUBIN, URINE AUTO NEGATIVE (NEGATIVE); BLOOD, URINE BLOOD 1+ (NEGATIVE); GLUCOSE, URINE (UA) AUTO NEGATIVE (NEGATIVE); KETONE, URINE AUTO NEGATIVE (NEGATIVE); LEUKOCYTE ESTERASE, URINE AUTO 3+ (NEGATIVE); MUCUS, URINE SMALL (NEGATIVE); NITRITE, URINE AUTO POSITIVE (NEGATIVE); PROTEIN, URINE AUTO 1+ mg/dL (NEGATIVE); RBC, URINE AUTO 15 /HPF (0-3); SPECIFIC GRAVITY URINE AUTO 1.024 (1.002-1.035); SQUAMOUS EPITHELIAL CELL UR AU 0 /HPF (0-6); UROBILINOGEN, URINE AUTO 0.2 mg/dL (0.0-2.0); WBC, URINE AUTO TNTC /HPF (0-3)
[2025-02-25 13:35] LABS: INR 0.96
[2025-02-25] MEDS ORDERED: ISOVUE-370 76% 100 ML VIAL As Ordered ONE (13:35)
[2025-02-25 13:37] LABS: BASO # 0.0 10^3/uL (0.0-0.2); BASO % 0.1 % (0.0-1.0); EOS # 0.0 10^3/uL (0.0-0.5); EOS % 0.6 % (0.0-3.0); LYMPH # 0.7 10^3/uL (1.5-5.0); LYMPH % 9.8 % (24.0-44.0); MONO # 0.4 10^3/uL (0.0-0.8); MONO % 6.1 % (2.0-8.0); NEUTROPHILS # 5.7 10^3/uL (1.5-8.5); NEUTROPHILS % 83.1 % (36.0-66.0); PLATELET COUNT, AUTOMATED 198 10^3/uL (150-450)
[2025-02-25] MEDS ORDERED: LEVO137T2 PO (14:55)
[2025-02-25] MEDS ORDERED: HOME MED LIST COMPLETE! XX SCH (15:00)
[2025-02-25] MEDS: ERTAPENEM SODIUM 1 GM in NS MINI-BAG PLUS 50 ML IV ONE (16:37)
[2025-02-25] MEDS: NS 500 ML IV ONE ×2 (16:55→23:23)
[2025-02-25] MEDS: QUEtiapine FUMARATE 50MG TAB PO SCH (17:00)
[2025-02-25] MEDS ORDERED: NOREPINEPHRINE 4MG IN D5 250ML 4 MG in IV 1 EA IV SCH (19:10)
[2025-02-25] MEDS ORDERED: BISACODYL 10 MG SUPP PR PRN (19:25)
[2025-02-25 19:35] LABS: ABG BASE EXCESS -0.6 (-2.0-2.0); ABG HCO3 22.9 MMOL/L (22.0-26.0); ABG O2 SATURATION 98.7 % (95.0-99.0); ABG PARTIAL PRESSURE CO2 32.8 mmHg (35.0-45.0); ABG PARTIAL PRESSURE O2 117.4 mmHg (75.0-100.0); ABG STANDARD HCO3 24.0 MMOL/L. (22.0-26.0); ABG TOTAL CO2 23.9 MMOL/L (23.0-31.0); ABG pH (ARTERIAL) 7.461 UNITS (7.350-7.450)
[2025-02-25] MEDS: D5W/LR 1,000 ML IV SCH (19:37)
[2025-02-25] MEDS: MIRTAZAPINE 15 MG TAB PO SCH (21:00)
[2025-02-25] MEDS: clonazePAM 0.5 MG TAB PO SCH (21:00)
[2025-02-25] MEDS ORDERED: QUEtiapine FUMARATE 50MG TAB PO SCH (21:00)
[2025-02-25] MEDS: OLANZapine 5 MG TAB PO SCH (21:00)
[2025-02-25] MEDS: ADVAIR HFA 115/21 MCG INHALER INH SCH (21:39)
[2025-02-25] MEDS: ACETAMINOPHEN 325 MG TAB PO SCH (21:55)
[2025-02-26] VITALS (36 sets, daily range): BP systolic 99–157; BP diastolic 50–112; TEMP 97.7–98.6; O2SAT 83–95
[2025-02-26 04:36] LABS: BASO # 0.0 10^3/uL (0.0-0.2); BASO % 0.2 % (0.0-1.0); EOS # 0.1 10^3/uL (0.0-0.5); EOS % 1.3 % (0.0-3.0); LYMPH # 1.4 10^3/uL (1.5-5.0); LYMPH % 22.7 % (24.0-44.0); MONO # 0.5 10^3/uL (0.0-0.8); MONO % 7.7 % (2.0-8.0); NEUTROPHILS # 4.2 10^3/uL (1.5-8.5); NEUTROPHILS % 67.9 % (36.0-66.0); PLATELET COUNT, AUTOMATED 166 10^3/uL (150-450)
[2025-02-26] MEDS: LEVOTHYROXINE 137 MCG TABLET (0.137 MG) PO SCH (05:10)
[2025-02-26 05:25] LABS: ALT/SGPT 21.0 U/L (7.0-40); AST/SGOT 30.0 U/L (<34); CALCIUM LEVEL 8.8 MG/DL (8.3-10.6); CARBON DIOXIDE LEVEL 25.0 MMOL/L (20-31); CHLORIDE LEVEL 112.0 MMOL/L (98-107); CREATININE FOR GFR 0.78 MG/DL (0.55-1.30); GLOMERULAR FILTRATION RATE 76.3 (>32); POTASSIUM SERUM 4.6 MMOL/L (3.5-5.1); SODIUM LEVEL 144.0 MMOL/L (136-145)
[2025-02-26] MEDS: FERROUS SULFATE 325 MG TAB PO SCH (08:00)
[2025-02-26] MEDS: MIDODRINE 5 MG TAB PO SCH (08:00)
[2025-02-26] MEDS: FLUoxetine 20 MG CAP PO SCH (09:00)
[2025-02-26] MEDS: PANTOPRAZOLE 40MG VIAL IV SCH (09:55)
[2025-02-26] MEDS: ENOXAPARIN 40 MG/0.4 ML SYRINGE (J1650 PER 10MG) SC SCH (09:55)
[2025-02-26] MEDS ORDERED: MOM 30 ML SUSPENSION UDC PO PRN (11:10)
[2025-02-26] MEDS ORDERED: MIRALAX *UNIT DOSE* 17 GM PACKET PO PRN (11:10)
[2025-02-26] MEDS: D5W/0.9% SODIUM CHLORIDE 1,000 ML IV SCH (16:13)
[2025-02-26] MEDS: ERTAPENEM SODIUM 1 GM in NS MINI-BAG PLUS 50 ML IV SCH (17:11)
[2025-02-26] MEDS: SENNOSIDES/DOCUSATE SODIUM 8.6 MG/50MG TAB PO SCH (21:00)
[2025-02-27] VITALS (7 sets, daily range): BP systolic 143–161; BP diastolic 65–75; TEMP 97–99.3; O2SAT 93–100
[2025-02-27 05:31] LABS: BASO # 0.0 10^3/uL (0.0-0.2); BASO % 0.0 % (0.0-1.0); EOS # 0.1 10^3/uL (0.0-0.5); EOS % 1.1 % (0.0-3.0); LYMPH # 1.4 10^3/uL (1.5-5.0); LYMPH % 22.3 % (24.0-44.0); MONO # 0.6 10^3/uL (0.0-0.8); MONO % 9.1 % (2.0-8.0); NEUTROPHILS # 4.4 10^3/uL (1.5-8.5); NEUTROPHILS % 67.2 % (36.0-66.0); PLATELET COUNT, AUTOMATED 174 10^3/uL (150-450)
[2025-02-27 05:53] LABS: CALCIUM LEVEL 8.8 MG/DL (8.3-10.6); CARBON DIOXIDE LEVEL 24.0 MMOL/L (20-31); CHLORIDE LEVEL 111.0 MMOL/L (98-107); CREATININE FOR GFR 0.75 MG/DL (0.55-1.30); GLOMERULAR FILTRATION RATE 79.9 (>32); MAGNESIUM LEVEL 1.6 MG/DL (1.8-2.4); POTASSIUM SERUM 4.2 MMOL/L (3.5-5.1); SODIUM LEVEL 144.0 MMOL/L (136-145)
[2025-02-27 05:54] LABS: C REACTIVE PROTEIN QUANTITATIV 4.83 MG/DL (<1.0)
[2025-02-27] MEDS: MAG SULF 1GM/100ML (MAG RUN) 1 GM in IV 1 EA IV SCH (09:33)
[2025-02-27] MEDS: LEVOTHYROXINE 100 MCG (0.1 MG) 5ML SDV PF (SOLUTION FORM) IV SCH (10:30)
[2025-02-27] MEDS: LevoFLOXacin IV 750 MG in IV 1 EA IV SCH (12:00)
[2025-02-28] VITALS: BP 145/97; TEMP 97.1; O2SAT 97
[2025-02-28 04:00] VITALS: BP 139/68; TEMP 97.5; O2SAT 99
[2025-02-28 05:24] LABS: BASO # 0.0 10^3/uL (0.0-0.2); BASO % 0.2 % (0.0-1.0); EOS # 0.2 10^3/uL (0.0-0.5); EOS % 3.4 % (0.0-3.0); LYMPH # 1.4 10^3/uL (1.5-5.0); LYMPH % 24.9 % (24.0-44.0); MONO # 0.5 10^3/uL (0.0-0.8); MONO % 9.2 % (2.0-8.0); NEUTROPHILS # 3.5 10^3/uL (1.5-8.5); NEUTROPHILS % 61.4 % (36.0-66.0); PLATELET COUNT, AUTOMATED 143 10^3/uL (150-450)
[2025-02-28 05:47] LABS: C REACTIVE PROTEIN QUANTITATIV 4.0 MG/DL (<1.0)
[2025-02-28 05:48] LABS: CALCIUM LEVEL 8.5 MG/DL (8.3-10.6); CARBON DIOXIDE LEVEL 24.0 MMOL/L (20-31); CHLORIDE LEVEL 111.0 MMOL/L (98-107); CREATININE FOR GFR 0.69 MG/DL (0.55-1.30); GLOMERULAR FILTRATION RATE 87.1 (>32); MAGNESIUM LEVEL 1.8 MG/DL (1.8-2.4); POTASSIUM SERUM 4.2 MMOL/L (3.5-5.1); SODIUM LEVEL 143.0 MMOL/L (136-145)
[2025-02-28 08:00] VITALS: BP 177/74; TEMP 97.7; O2SAT 98
[2025-02-28] MEDS: BISACODYL 10 MG SUPP PR SCH (09:10)
[2025-02-28] MEDS: ACETAMINOPHEN *IV* 1,000 MG in IV 1 EA IV ONE (09:11)
[2025-02-28 12:00] VITALS: BP 162/70; TEMP 97.4; O2SAT 99
[2025-02-28 16:00] VITALS: BP 168/70; TEMP 98; O2SAT 99
[2025-02-28 22:00] VITALS: BP 177/77; TEMP 97.2; O2SAT 99
[2025-02-28] MEDS: hydrALAZINE 20 MG/ML 1 ML VIAL IV PRN (22:38)
[2025-03-01 00:36] VITALS: BP 169/74; TEMP 97.6; O2SAT 98
[2025-03-01] MEDS: ACETAMINOPHEN *IV* 1,000 MG in IV 1 EA IV ONE (01:03)
[2025-03-01 04:00] VITALS: BP 153/66; TEMP 97.5; O2SAT 98
[2025-03-01] MEDS: LEVOTHYROXINE 137 MCG TABLET (0.137 MG) PO SCH (06:00)
[2025-03-01 06:24] LABS: BASO # 0.0 10^3/uL (0.0-0.2); BASO % 0.2 % (0.0-1.0); EOS # 0.2 10^3/uL (0.0-0.5); EOS % 3.2 % (0.0-3.0); LYMPH # 1.6 10^3/uL (1.5-5.0); LYMPH % 26.6 % (24.0-44.0); MONO # 0.5 10^3/uL (0.0-0.8); MONO % 8.4 % (2.0-8.0); NEUTROPHILS # 3.6 10^3/uL (1.5-8.5); NEUTROPHILS % 60.1 % (36.0-66.0); PLATELET COUNT, AUTOMATED 126 10^3/uL (150-450)
[2025-03-01 06:48] LABS: C REACTIVE PROTEIN QUANTITATIV 2.99 MG/DL (<1.0)
[2025-03-01 06:49] LABS: CALCIUM LEVEL 8.4 MG/DL (8.3-10.6); CARBON DIOXIDE LEVEL 22.0 MMOL/L (20-31); CHLORIDE LEVEL 110.0 MMOL/L (98-107); CREATININE FOR GFR 0.7 MG/DL (0.55-1.30); GLOMERULAR FILTRATION RATE 86.8 (>32); MAGNESIUM LEVEL 1.6 MG/DL (1.8-2.4); POTASSIUM SERUM 3.7 MMOL/L (3.5-5.1); SODIUM LEVEL 142.0 MMOL/L (136-145)
[2025-03-01 08:00] VITALS: BP 152/67
[2025-03-01 08:01] VITALS: BP 152/67; TEMP 96; O2SAT 99
[2025-03-01] MEDS: PANTOPRAZOLE 20 MG TAB PO SCH (09:06)
[2025-03-01] MEDS: MAG SULF 1GM/100ML (MAG RUN) 1 GM in IV 1 EA IV SCH (09:08)
[2025-03-01] MEDS ORDERED: LEVO75TAB PO (10:47)
== END 2025-03-01 12:43 | DRG 871 ==
LOC: EDBD 12:27 → M ED 12:27 → M ED INP 19:08 → M ICU 19:59
PROVIDERS: ADMIT Internal Medicine Pulmonary Disease; ATTEND Internal Medicine
DX: A41.9 Sepsis, unspecified organism (principal); G93.41 Metabolic encephalopathy; R65.21 Severe sepsis with septic shock; N39.0 Urinary tract infection, site not specified; I95.89 Other hypotension; E03.9 Hypothyroidism, unspecified; D50.9 Iron deficiency anemia, unspecified; J45.909 Unspecified asthma, uncomplicated; J44.9 Chronic obstructive pulmonary disease, unspecified; R54 Age-related physical debility; R68.0 Hypothermia, not associated with low environmental temperature; K56.41 Fecal impaction; F03.90 Unspecified dementia, unspecified severity, without behavioral disturbance, psychotic disturbance, mood disturbance, and anxiety; E16.2 Hypoglycemia, unspecified; H91.93 Unspecified hearing loss, bilateral; R13.10 Dysphagia, unspecified; F32.A Depression, unspecified; B96.5 Pseudomonas (aeruginosa) (mallei) (pseudomallei) as the cause of diseases classified elsewhere; E83.42 Hypomagnesemia; Z96.643 Presence of artificial hip joint, bilateral; Z79.899 Other long term (current) drug therapy; Z79.890 Hormone replacement therapy

== ENCOUNTER → 2025-04-01 | Outpatient (REF) | payer MEDICARE, OTHER, MEDICAID ==
[~2025-04-01] MED LIST changes: +LEVO137T2 PO; +LEVO75TAB PO
[2025-04-01 11:08] LABS: PLATELET COUNT, AUTOMATED 217 10^3/uL (150-450)
== END ==
LOC: SKLAB8 07:00
PROVIDERS: ATTEND Internal Medicine
DX: Z79.899 Other long term (current) drug therapy (principal)

== ENCOUNTER → 2025-04-13 | Outpatient (REF) | payer MEDICARE, OTHER, MEDICAID | LOC: SKLAB8 10:50 | PROVIDERS: ATTEND Family Medicine | DX: R06.02 Shortness of breath (principal) ==